=== PATIENT | female | born 1950 | race Caucasian/White ===

== ENCOUNTER 2020-09-23 13:22 | Outpatient (REF) | payer MEDICARE, SELFPAY ==
[2020-09-23 14:26] LABS: Alanine Aminotransferase 20 U/L (0-31); Albumin Level 4.5 g/dL (3.5-5.0); Alkaline Phosphatase 80 U/L (39-117); Anion Gap 11 (12-20); Aspartate Amino Transferase 22 U/L (5-31); Bilirubin Total 0.5 mg/dL (0.0-1.0); Blood Urea Nitrogen 14 mg/dL (9-16); Carbon Dioxide 28 mmol/L (22-29); Chloride 104 mmol/L (96-108); Cholesterol 249 mg/dL; Estimated Glomerular Filt Rate 43; Glucose Random 99 mg/dL (60-115); HDL Cholesterol 59 mg/dL; LDL Cholesterol Calculated 171 mg/dl; Potassium 3.7 mmol/l (3.3-5.1); Sodium 139 mmol/L (135-145); Total Protein 6.8 g/dL (6.5-8.0); Triglycerides 98 mg/dL
[2020-09-23 14:36] LABS: Valproate 34.8 mcg/mL (50.0-100.0)
[2020-09-23 14:50] LABS: TSH reflex Free T4 2.53 mIU/mL (0.32-4.0)
== END 2020-09-23 13:23 | disposition home or self-care (01) ==
LOC: HO.LAB 13:22
PROVIDERS: Visit Provider Family Medicine
DX: F31.9 Bipolar disorder, unspecified (principal)
CPT/HCPCS: 36415; 80053; 80061; 80164; 84443

== ENCOUNTER 2021-03-23 14:50 | Outpatient (REF) | payer MEDICARE, SELFPAY ==
--- NOTE | ~2021-03-23 | XR_ITS ---
EXAMINATION: XR RIBS, RIGHT CLINICAL INFORMATION: Fall COMPARISON: Chest x-ray of January 29, 2020 TECHNIQUE: 3 views of the right ribs were obtained. FINDINGS: Visualized Lungs are clear. No consolidation, pneumothorax, or pleural effusion. The cardiomediastinal silhouette and pulmonary vasculature are normal. Multilevel degenerative disc disease is seen with spurring. There is scoliosis at the thoracolumbar junction convex left. Ribs are intact. No fractures are identified. XR/XR ribs RT 2V IMPRESSION: No acute displaced right rib fracture identified. No destructive bony lesion appreciated.
== END 2021-03-23 14:51 | disposition home or self-care (01) ==
LOC: HO.XRAY 14:50
PROVIDERS: PCP Family Medicine; Visit Provider Family Medicine
DX: Z91.81 History of falling (principal)
CPT/HCPCS: 71100

== ENCOUNTER 2021-05-30 18:15 | Outpatient (REF) | payer MEDICARE, SELFPAY ==
--- NOTE | ~2021-05-30 | MR_ITS ---
MRI OF THE BRAIN WITHOUT IV CONTRAST INDICATION: Vertigo/ataxia. COMPARISON: Brain MRI 05/11/2015. TECHNIQUE: Multiplanar multisequence MR imaging of the brain was obtained without IV contrast. FINDINGS: There is no hydrocephalus, extra-axial surface collection, or herniation. Mild chronic microangiopathy. The major flow voids at the skull base are preserved. There is no acute infarct on diffusion-weighted imaging. There is no intracranial hemorrhage on the gradient recalled echo acquisition. The midline structures are normal. 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 The cerebellum and brainstem are normal. The craniocervical junction is normal. Osseous marrow signal intensity is homogenous. A large well-circumscribed T2 signal hyperintense subcutaneous lesion partially imaged within the dorsal upper neck is again noted, possibly a large sebaceous cyst but nonspecific and that should be clinically correlated. 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 - There is mild chronic microangiopathy. - A large well-circumscribed T2 signal hyperintense subcutaneous lesion partially imaged within the dorsal upper neck is again noted, possibly a large sebaceous cyst but nonspecific and that should be clinically correlated. This measures at least 5 cm in CC dimension.
== END 2021-05-30 18:16 | disposition home or self-care (01) ==
LOC: HO.MRI 18:15
PROVIDERS: PCP Family Medicine; Visit Provider Psychiatry & Neurology Neurology
DX: R27.0 Ataxia, unspecified (principal); R90.82 White matter disease, unspecified
CPT/HCPCS: 70551

== ENCOUNTER 2021-11-18 18:54 | Emergency (ER) | payer MEDICARE, SELFPAY ==
--- NOTE | ~2021-11-18 | CT_ITS ---
EXAMINATION: CT CERVICAL SPINE WITHOUT CONTRAST; UNENHANCED CT OF THE HEAD. CLINICAL INFORMATION: Fall, head and neck pain. COMPARISON: None TECHNIQUE: Routine unenhanced CT of the head with multiple coronal and sagittal reformatted images; routine unenhanced CT of the cervical spine with multiple coronal and sagittal reformatted images. This CT examination was performed using dose optimization techniques as appropriate, variously including the following: *Automated exposure control *Adjustment of mA and/or kV according to patient size (this includes techniques or standardized protocols for targeted exams where dose is matched to indication/reason for exam; i.e. extremities or head) *Use of iterative reconstruction technique DLP: 1032 mGy-cm FINDINGS: Mild diffuse commensurate prominence of the ventricles and sulci is noted. No intrarenal hemorrhage, tumors or acute infarcts are visualized. No focal parenchymal lesions the brain noted. No abnormal extra-axial fluid collections. The orbits and globes are normal in appearance. Multifocal dental amalgam is present and gives rise to scattering artifact partially obscuring visualization of adjacent transaxial structures. Mild left parieto-occipital extra cranial soft tissue inflammatory changes are visualized. No mastoid or middle ear cavity effusions identified. CT cervical spine: No fractures or acute appearing subluxations are noted. Moderate multilevel intervertebral disc space narrowing and posterior endplate osteophytosis is present with findings most pronounced at C5-C6 and C6-C7. No vertebral body compression deformities. No prevertebral fluid or soft tissue inflammatory changes identified. Mild left carotid bulb calcific atherosclerosis. CT/CT cervical spine wo con IMPRESSION: CT head: *No acute intracranial abnormalities. *Mild left parieto-occipital extra cranial soft tissue inflammatory changes. CT cervical spine: *No acute abnormalities. *Moderate multilevel chronic spondylosis.
--- NOTE | ~2021-11-18 | CT_ITS ---
EXAMINATION: CT CHEST, ABDOMEN AND PELVIS WITHOUT CONTRAST CLINICAL INFORMATION: Fall with chest wall pain and abdominal pain COMPARISON: CT abdomen pelvis 07/19/2014 TECHNIQUE: Multidetector volumetric imaging was performed from the thoracic inlet through the pubic symphysis without IV contrast. Sagittal and coronal reformatted images were obtained on the technologist's workstation. This CT examination was performed using dose optimization techniques as appropriate, variously including the following: *Automated exposure control *Adjustment of mA and/or kV according to patient size (this includes techniques or standardized protocols for targeted exams where dose is matched to indication/reason for exam; i.e. extremities or head) *Use of iterative reconstruction technique DLP: 289 mGy-cm (chest) 999 mGy-cm (abdomen and pelvis) FINDINGS: CHEST: Lung: The lungs are clear without focal opacity or worrisome nodule. Left basilar atelectasis is seen. There is a tiny 2 mm nodule in the superior segment of the left lower lobe (7:220). Mediastinum: Heart size is normal. Coronary calcifications are present. The central vascular structures are otherwise unremarkable. No hilar or mediastinal lymphadenopathy. Pericardium/Pleura: No significant effusion. No pleural mass or thickening. Chest Wall/Axilla: Degenerative changes noted throughout the spine. No rib fractures are seen. ABDOMEN/PELVIS: Peritoneal Space: No significant free air or free fluid identified. Liver, Gallbladder, Biliary Tree: The liver is normal in size, shape, and attenuation. No focal hepatic lesion or biliary ductal dilatation is present. The gallbladder is unremarkable with no evidence of radiopaque gallstones, gallbladder wall thickening, or obvious pericholecystic inflammatory changes. Pancreas: Unremarkable Spleen: Unremarkable Adrenal Glands: Unremarkable Kidneys and Ureters: The kidneys are normal in size, shape, and attenuation. Benign bilateral water density Bosniak class I parapelvic and cortical cysts are present. These need no further imaging or follow-up. No solid renal masses. No hydronephrosis, hydroureter, or calculi seen. No perinephric stranding. Bladder: Unremarkable Gastrointestinal Tract: The small and large bowel are unremarkable. The appendix is none seen with certainty but there is no evidence of appendicitis. Abdominal Wall: No significant hernia is appreciated. Lymph Nodes: No lymphadenopathy. Vascular: The aorta and iliac vessels demonstrate calcific plaque without aneurysm.. The IVC appears unremarkable. PELVIC VISCERA: Unremarkable OSSEUS STRUCTURES: Mild degenerative changes are noted in the spine. Generalized osteopenia is present. No bony destructive lesions are seen. Lytic area in right hemisacrum probably secondary to osteoporosis and transitional L5 vertebral body, unchanged from 07/19/2014. CT/CT abdomen pelvis wo con IMPRESSION: No evidence of an acute traumatic injury in the chest abdomen or pelvis after the patient's fall. Incidental findings as described above. Fleischner guidelines were followed.
[2021-11-18 19:13] VITALS: BP 121/45; PULSE 58; RESP 16; TEMP 36.8; O2SAT 97; BMI 23.6
--- NOTE | 2021-11-18 19:21 | ECG_ITS ---
Test Reason : fall Blood Pressure : / mmHG Vent. Rate : 056 BPM Atrial Rate : 056 BPM P-R Int : 162 ms QRS Dur : 132 ms QT Int : 448 ms P-R-T Axes : 047 013 033 degrees QTc Int : 432 ms Sinus bradycardia Right bundle branch block Abnormal ECG When compared with ECG of 19-MAR-2019 01:06, No significant change was found Referred By: Generic ED Physician Electronically Signed By:Kaiden Valderrama
[2021-11-18 19:35] LABS: MANUAL DIFF FLAG NO
[2021-11-18 19:36] LABS: Basophils Percent Auto 0.7 % (0-2); Eosinophils Percent Auto 5.4 % (0-4); Imm Gran Pct Auto 1.3 % (0.0-0.4); Lymphocytes Percent Auto 18.5 % (20-40); Mean Corpuscular HGB Conc 30.6 g/dl (31.0-35.0); Mean Corpuscular Hemoglobin 29.3 pg (27.0-33.0); Mean Corpuscular Volume 95.7 fL (80.0-98.0); Mean Platelet Volume 8.6 fL (9.4-12.3); Monocytes Percent Auto 9.4 % (2-11); Neutrophils Absolute Auto 4.4 x10*3/uL (2.0-8.3); Neutrophils Percent Auto 64.7 % (45-73); Platelet Count 157 X10*3/uL (160-400); Red Blood Count 3.76 X10*6/uL (4.20-5.50); White Blood Count 6.8 X10*3/uL (4.8-10.8)
--- NOTE | 2021-11-18 19:50 | ED_ITS ---
HPI - Fall General Chief Complaint: Fall Stated Complaint: fall head injury Time Seen by Provider: 11/18/21 19:36 Source: patient and family Mode of arrival: ambulatory Limitations: no limitations History of Present Illness HPI Narrative: This is a 70-year-old female past medical history significant for vertigo, and bipolar disorder presenting to the emergency department status post fall just prior to her arrival. Patient tells me she was in her kitchen, she slipped, fell backwards, hit her head on the cabinet. She tells me she did not lose consciousness however she did see stars. She tells me she was able to get off the ground by herself. She tells me that she is high off marijuana which could be contributing to this. Son who is at the bedside reports that she has had multiple falls within the past week. Hitting her head multiple times. Patient is on baby aspirin daily. She denies headache, vision changes, dizziness, chest pain, shortness of breath, nausea vomiting. She does report left-sided rib pain, and right-sided lower back pain. She denies any changes in bowel habits, paresthesias, numbness, weakness. MD complaint: fall Onset (ago): hour(s) (3) Fall from: standing Fall witnessed: no Place fall occurred: home Loss of consciousness: none Length of LOC: second(s) Prolonged down time: no Symptoms prior to fall: none Context: tripped/slipped Location of injury: head, neck, chest and back Related Data Allergies Allergy/AdvReac Type Severity Reaction Status Date / Time Antibiotic Allergy Unknown Unverified 04/26/20 00:00 ciprofloxacin [From Cipro] Allergy Unknown UNKNOWN Unverified 06/02/20 16:21 codeine [Codeine] Allergy Unknown UNKNOWN Unverified 06/02/20 16:21 cortisone [Cortisone] Allergy Unknown UNKNOWN Unverified 06/02/20 16:21 fexofenadine [Abimbola] Allergy Unknown Verified 04/26/20 00:00 Iodine and Iodide Containing Allergy Unknown UNKNOWN Unverified 06/02/20 16:21 Produc [IODINE AND IODIDE CONTAINING PRODUC] loratadine [Claritin] Allergy Unknown Verified 04/26/20 00:00 morphine Allergy Unknown Unverified 04/26/20 00:00 prednisone Allergy Unknown confusion Unverified 04/26/20 00:00 shellfish derived Allergy Unknown UNKNOWN Unverified 06/02/20 16:21 [SHELLFISH DERIVED] Sulfa (Sulfonamide Allergy Unknown UNKNOWN Unverified 06/02/20 16:21 Antibiotics) ALL ANTIBIOTICS EXCEPT Allergy Unknown UNKNOWN Uncoded 06/02/20 16:21 TETRACYCLINE Codeine Sulfate Allergy Unknown Uncoded 04/26/20 00:00 DIURETICS Allergy Unknown UNKNOWN Uncoded 06/02/20 16:21 From Cipro Allergy Unknown UNKNOWN Uncoded 06/02/20 16:21 From Keflex Allergy Unknown UNKNOWN Uncoded 06/02/20 16:21 [facility] Social History Social History Advance Directives: No Physical Exam Vital Signs: Vital Signs: Last Vital Signs Temp 97.5 F 11/18/21 20:39 Pulse 58 11/18/21 21:06 Resp 18 11/18/21 20:39 BP 154/78 H 11/18/21 21:06 Pulse Ox 98 11/18/21 20:39 BMI result Body Mass Index 23.6 Course Reevaluation(s) Reevaluation #1: CBC within normal limits. Patient is noted to have a baseline normocytic anemia. No acute electrolyte abnormalities. CT of the head no acute intracranial abnormalities. There is soft tissue swelling in the parietal 0 orbital area. No acute abnormalities in the cervical spine. CT of the chest with no evidence of an acute traumatic injury in the chest abdomen or pelvis. There are degenerative changes noted in the spine. Time: 22:11 Reevaluation #2: Patient is ambulating with a steady gait. MDM - Fall Lab Data Result diagrams: 11/18/21 19:31 11/18/21 19:31 Labs: Lab Results 11/18/21 11/18/21 Range/Units 19:31 19:31 WBC 6.8 (4.8-10.8) X10*3/uL RBC 3.76 L (4.20-5.50) X10*6/uL Hgb 11.0 L (12.0-16.0) g/dl Hct 36.0 L (37.0-47.0) % MCV 95.7 (80.0-98.0) fL MCH 29.3 (27.0-33.0) pg MCHC 30.6 L (31.0-35.0) g/dl RDW 14.0 (11.0-16.0) % Plt Count 157 L (160-400) X10*3/uL MPV 8.6 L (9.4-12.3) fL Immature Gran % (Auto) 1.3 H (0.0-0.4) % Neut % (Auto) 64.7 (45-73) % Lymph % (Auto) 18.5 L (20-40) % [place] % (Auto) 9.4 (2-11) % Eos % (Auto) 5.4 H (0-4) % Baso % (Auto) 0.7 (0-2) % Lymph # (Auto) 1.3 (1.2-4.9) X10*3/uL [place] # (Auto) 0.6 (0.1-1.2) X10*3/uL Eos # (Auto) 0.4 (0.0-0.4) X10*3/uL Baso # (Auto) 0.1 (0.0-0.2) X10*3/uL Abs Immat Gran (auto) 0.09 H (0.00-0.03) X10*3/uL Absolute Neuts (auto) 4.4 (2.0-8.3) x10*3/uL Absolute Nucleated RBC 0.000 (0.0-0.012) X10*3/uL Nucleated RBC % (auto) 0.0 (0.0-0.2) /100WBC Sodium 146 H (135-145) mmol/L Potassium 4.8 (3.3-5.1) mmol/L Chloride 114 H (96-108) mmol/L Carbon Dioxide 27 (22-29) mmol/L Anion Gap 10 L (12-20) BUN 20 H (9-16) mg/dL Creatinine 0.97 (0.5-1.4) mg/dL Estim Creat Clear Calc 55.2 Estimated GFR 57 Random Glucose 120 H (60-115) mg/dL Calcium 8.9 (8.4-10.2) mg/dL Critical Care Time Critical Care Time Critical Care Time: No Discharge Plan Discharge Clinical Impression: Fall, Headache, Pain in rib, Lumbar back pain Patient Disposition: Home, Self-Care Instructions: Fall Prevention (ED), Fall Prevention for Older Adults (ED), Acute Headache (DC), Acute Low Back Pain (ED) Additional Instructions: Take your medications as prescribed. If you were prescribed antibiotics today, it is important that you take your medication to their entirety, do not skip any doses, do not finish them early. Follow-up with your primary care provider this week. Return to the emergency department with new or worsening symptoms. Such as headache, nausea, vomiting, chest pain, shortness of breath, lethargy, vision changes, dizziness, worsening symptoms, confusion In case of emergency call 911 Referrals: Thais Mcdaniel MD [Primary Care Provider] - 2 days Stand Alone Forms: Work/School Release
[2021-11-18 20:18] LABS: Anion Gap 10 (12-20); Blood Urea Nitrogen 20 mg/dL (9-16); Calcium 8.9 mg/dL (8.4-10.2); Carbon Dioxide 27 mmol/L (22-29); Chloride 114 mmol/L (96-108); Creatinine Clr Calc Pharmacy 55.2; Estimated Glomerular Filt Rate 57; Glucose Random 120 mg/dL (60-115); Potassium 4.8 mmol/L (3.3-5.1); Sodium 146 mmol/L (135-145)
[2021-11-18 20:39] VITALS: BP 145/75; PULSE 53; RESP 18; TEMP 36.4; O2SAT 98
[2021-11-18 21:02] VITALS: BP 137/68; PULSE 53
[2021-11-18 21:04] VITALS: BP 145/70; PULSE 59
[2021-11-18 21:06] VITALS: BP 154/78; PULSE 58
[2021-11-18 21:15] LABS: Basophils Absolute Auto 0.1 X10*3/uL (0.0-0.2); Eosinophils Absolute Auto 0.4 X10*3/uL (0.0-0.4); Imm Gran Abs Auto 0.09 X10*3/uL (0.00-0.03); Lymphocytes Absolute Auto 1.3 X10*3/uL (1.2-4.9); Monocytes Absolute Auto 0.6 X10*3/uL (0.1-1.2)
== END 2021-11-18 22:25 | disposition home or self-care (01) ==
PROVIDERS: Emergency Provider Emergency Medicine Emergency Medical Services; PCP Family Medicine
DX: R51.9 Headache, unspecified (principal); R07.81 Pleurodynia; M54.50 Low back pain, unspecified; F12.90 Cannabis use, unspecified, uncomplicated; Z91.81 History of falling
CPT/HCPCS: 36415; 70450; 71250; 72125; 74176; 80048; 85025; 93005; 99284

== ENCOUNTER 2022-09-05 15:04 | Outpatient (REF) | payer MEDICARE, SELFPAY | END 2022-09-05 15:05 | disposition home or self-care (01) | LOC: HO.US 15:04 | PROVIDERS: Visit Provider Family Medicine | DX: N28.1 Cyst of kidney, acquired (principal) | CPT/HCPCS: 76775 ==

== ENCOUNTER 2022-10-06 20:41 | Emergency (ER) | payer MEDICARE, SELFPAY ==
--- NOTE | ~2022-10-06 | XR_ITS ---
EXAMINATION: XR CHEST CLINICAL INFORMATION: Chest trauma. COMPARISON: Chest x-ray 01/29/2020 TECHNIQUE: Frontal portable view of the chest was obtained. 11:56 PM FINDINGS: Lungs are clear. No pulmonary vascular congestion. There is no pleural effusion. The heart size is normal. The cardiac and mediastinal contours are normal. There are calcifications of the thoracic aorta. There are multilevel degenerative changes of dorsal spine. No acute osseous abnormality. XR/XR chest 1V IMPRESSION: Unremarkable examination.
--- NOTE | ~2022-10-06 | CT_ITS ---
EXAMINATION: CT HEAD WITHOUT CONTRAST CLINICAL INFORMATION: Fall. Head strike. COMPARISON: CT head 11/18/2021 TECHNIQUE: Contiguous axial imaging was performed from the skull base to vertex without intravenous administration of contrast. Coronal and sagittal reformatted images are performed at the CT scanner. [This CT examination was performed using dose optimization techniques as appropriate, variously including the following: *Automated exposure control *Adjustment of mA and/or kV according to patient size (this includes techniques or standardized protocols for targeted exams where dose is matched to indication/reason for exam; i.e. extremities or head) *Use of iterative reconstruction technique] DLP: 572 mGy-cm. FINDINGS: There is no evidence of acute intracranial hemorrhage or territorial infarction. No abnormal mass-effect or midline shift is seen. Carranza to white matter differentiation is well preserved. No extra-axial fluid collections are identified. The ventricles are normal in size. There is no abnormal attenuation within the brain parenchyma. There is no osseous abnormality. The mastoid air cells and visualized portions of the paranasal sinuses are well-aerated. CT/CT head/brain wo IV con IMPRESSION: No acute intracranial pathology.
[2022-10-06 20:51] VITALS: BP 151/69; BP 170/100; PULSE 52; PULSE 56; RESP 14; TEMP 36.3; O2SAT 97; O2SAT 99; BMI 25.8
--- NOTE | 2022-10-06 21:00 | MHC.EDTECH ---
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
--- NOTE | 2022-10-06 21:30 | PC.NURSE ---
PT A&Ox4, reports taking 20 topiramate (100 mg) pills around 6pm this evening. Reports drinking half a bottle of champagne. Also reports falling from toilet seat. Patient questioning why she has to get undressed and why do we have to take her phone. Provider at bedside. Security at bedside. PT changed over, calm and cooperative after explanations of policies and procedures. Denies SI/HI. States It's been a hard day, my of 40 years asked me for a divorce and told me he didn't want me anymore .
[2022-10-06 21:40] LABS: MANUAL DIFF FLAG NO
[2022-10-06 21:41] LABS: Basophils Percent Auto 0.5 % (0-2); Eosinophils Absolute Auto 0.3 X10*3/uL (0.0-0.4); Eosinophils Percent Auto 4.8 % (0-4); Hematocrit 36.6 % (37.0-47.0); Hemoglobin 11.7 g/dl (12.0-16.0); Imm Gran Abs Auto 0.04 X10*3/uL (0.00-0.03); Imm Gran Pct Auto 0.7 % (0.0-0.4); Lymphocytes Absolute Auto 1.4 X10*3/uL (1.2-4.9); Lymphocytes Percent Auto 25.3 % (20-40); Mean Corpuscular Hemoglobin 28.7 pg (27.0-33.0); Mean Corpuscular Volume 89.7 fL (80.0-98.0); Mean Platelet Volume 9.2 fL (9.4-12.3); Monocytes Absolute Auto 0.5 X10*3/uL (0.1-1.2); Monocytes Percent Auto 9.4 % (2-11); Neutrophils Absolute Auto 3.3 x10*3/uL (2.0-8.3); Neutrophils Percent Auto 59.3 % (45-73); Platelet Count 139 X10*3/uL (160-400); Red Blood Count 4.08 X10*6/uL (4.20-5.50); Red Cell Distribution Width 13.6 % (11.0-16.0); White Blood Count 5.6 X10*3/uL (4.8-10.8)
--- NOTE | 2022-10-06 21:50 | PC.NURSE ---
Poison controlled called, recommendations of repeat electrolytes Q4H. Provider notified.
[2022-10-06 21:52] LABS: Ethanol 46 mg/dL
[2022-10-06 22:00] VITALS: BP 143/68; PULSE 54; RESP 16; TEMP 36.9; O2SAT 98
--- NOTE | 2022-10-06 22:05 | MHC.EDTECH ---
patient back from cat scan ,vitals sign taken ,patient in good sprits ,laughing ,thanking me for everything .
[2022-10-06 22:11] LABS: Alanine Aminotransferase 29 U/L (0-31); Albumin Level 3.6 g/dL (3.5-5.0); Alkaline Phosphatase 89 U/L (39-117); Anion Gap 11 (12-20); Aspartate Amino Transferase 24 U/L (5-31); Bilirubin Total 0.7 mg/dL (0.0-1.0); Blood Urea Nitrogen 23 mg/dL (9-16); Calcium 8.6 mg/dL (8.4-10.2); Carbon Dioxide 19 mmol/L (22-29); Chloride 120 mmol/L (96-108); Creatinine Clr Calc Pharmacy 68.9; Estimated Glomerular Filt Rate > 60; Glucose Random 85 mg/dL (60-115); Magnesium 1.8 mg/dL (1.6-2.6); Potassium 4.4 mmol/L (3.3-5.1); Salicylate < 5.0 mg/dL (15-30); Sodium 146 mmol/L (135-145); Total Protein 5.7 g/dL (6.5-8.0)
--- NOTE | 2022-10-06 22:18 | MHC.EDTECH ---
urine ,sample send to lab .
[2022-10-06 22:25] LABS: Appearance Urine Clear; Color Urine Yellow; Glucose Urine UA Negative (Negative); Leukocyte Esterase Urine Negative (Negative); Nitrite Urine Negative (Negative); PH 8.5 (5.0-9.0); Specific Gravity - Urine <= 1.005 (1.005-1.025); Urine Blood Negative (Negative); Urine Ketones Negative (Negative); Urine Protein Negative (Neg-Trace)
[2022-10-06 22:28] LABS: Acetaminophen LAB < 17 mcg/mL (<30)
--- NOTE | 2022-10-06 22:33 | PC.NURSE ---
PT sitting on bedside commode,reports unable to void, feeling pressure, states I have a shy bladder . Bladder scan results 798. Provider notified. Straight cath 850cc.
[2022-10-06 22:34] LABS: Amphetamine Screen Urine Not Detected (Not Detect); Barbiturates, Urine Not Detected (Not Detect); Benzodiazepines Screen Urine POSITIVE (Not Detect); Cannabinoid Screen Urine Not Detected (Not Detect); Cocaine Screen Urine Not Detected (Not Detect); Fentanyl, urine Not Detected (Not Detect); Opiate Screen Urine Not Detected (Not Detect); Phencyclidine Screen Urine Not Detected (Not Detect)
[2022-10-06 22:37] LABS: COVID-19 Test Negative (Negative); IDNOW Serial# 6674DD1D
--- NOTE | 2022-10-06 23:10 | MHC.EDTECH ---
report given to brandyn Olmedo ,patient just came in .
[2022-10-06 23:11] VITALS: BP 130/66; PULSE 53; RESP 16; TEMP 36.6; O2SAT 99
--- NOTE | 2022-10-06 23:15 | ED.OVERDOSE ---
HPI - Overdose General Chief Complaint: Overdose <JONATHON Ca - Last Filed: 10/07/22 01:25> Stated Complaint: OD/Crisis <JONATHON Ca - Last Filed: 10/07/22 01:25> Time Seen by Provider: 10/06/22 20:44 <JONATHON Ca - Last Filed: 10/07/22 01:25> Source: patient, EMS and police <JONATHON Ca - Last Filed: 10/07/22 01:25> Mode of arrival: EMS <JONATHON Ca - Last Filed: 10/07/22 01:25> Limitations: no limitations <JONATHON Ca - Last Filed: 10/07/22 01:25> History of Present Illness HPI Narrative: This is a 71-year-old female presenting to the emergency department status post intentional overdose just prior to arrival. Patient arrives with EMS and [place] police. According to police patient had 20-25 pills Topamax 100 mg an hour and half prior to patient's arrival. Patient was also found with an empty bottle of trazodone next to her, this bottle of trazodone was filled on 09/11/2022 with a quantity of 90 pills, patient was found with this empty bottle patient unwilling to answer if she took it or not. Patient also reports drinking today her story has changed she told police she drinks chardonay and she told nursing staff here she had a bottle of champagne. According to EMS and police patient was very unsteady on her feet, after consuming these medications she fell off the toilet and hit her head without loss of consciousness, patient not on blood thinners. Did not sustain any other injuries. When asked if she is suicidal she does not answer my question. Denies homicidal ideation. Denies visual, auditory and tactile hallucinations. Has a significant mental health history. Denies chest pain, shortness of breath, headache, vision changes, dizziness, weakness, nausea, vomiting, abdominal pain.. <JONATHON Ca - Last Filed: 10/07/22 01:25> Related Data Home Medications: Home Medications Medication Instructions Recorded Confirmed Trileptal 10/07/22 Vitamin C 10/07/22 atenolol 50 mg tablet 2 tab PO DAILY 10/07/22 10/07/22 diazepam 10 mg tablet mg PO 10/07/22 divalproex 125 mg tablet,delayed 2 tab PO DAILY 10/07/22 10/07/22 release multivitamin 10/07/22 omeprazole 10/07/22 topiramate 100 mg tablet 4 tab PO BEDTIME 10/07/22 10/07/22 <JONATHON Ca - Last Filed: 10/07/22 01:25> Allergies/Adverse Reactions: Allergies Allergy/AdvReac Type Severity Reaction Status Date / Time Antibiotic Allergy Unknown Anaphylaxis Verified 10/07/22 04:46 ciprofloxacin [From Cipro] Allergy Unknown UNKNOWN Unverified 06/02/20 16:21 codeine [Codeine] Allergy Unknown UNKNOWN Unverified 06/02/20 16:21 cortisone [Cortisone] Allergy Unknown UNKNOWN Unverified 06/02/20 16:21 fexofenadine [Abimbola] Allergy Unknown Unknown Verified 10/07/22 04:46 Iodine and Iodide Containing Allergy Unknown Anaphylaxis Verified 10/07/22 04:46 Produc [IODINE AND IODIDE CONTAINING PRODUC] loratadine [Claritin] Allergy Unknown Unknown Verified 10/07/22 04:46 morphine Allergy Unknown Anaphylaxis Verified 10/07/22 04:46 prednisone Allergy Unknown confusion Verified 10/07/22 04:46 shellfish derived Allergy Unknown UNKNOWN Verified 10/07/22 04:46 [SHELLFISH DERIVED] Sulfa (Sulfonamide Allergy Unknown UNKNOWN Verified 10/07/22 04:46 Antibiotics) ALL ANTIBIOTICS EXCEPT Allergy Unknown UNKNOWN Uncoded 06/02/20 16:21 TETRACYCLINE Codeine Sulfate Allergy Unknown Anaphylaxis Uncoded 10/07/22 04:46 DIURETICS Allergy Unknown UNKNOWN Uncoded 10/07/22 04:46 From Cipro Allergy Unknown UNKNOWN Uncoded 10/07/22 04:46 From Keflex Allergy Unknown UNKNOWN Uncoded 10/07/22 04:46 <JONATHON Ca Last Filed: 10/07/22 01:25> Review of Systems Review of Systems: Constitutional : No Weight loss, No Fever, No Chills, No Fatigue, No Malaise ENT/Mouth : No sore throat, No Rhinorrhea Eyes: No Eye Pain, No Swelling, No Redness Cardiovascular : No Chest Pain, No SOB, No Dyspnea on Exertion, No Orthopnea, No Edema, No Palpitations Respiratory : No Cough, No Sputum, No Wheezing Gastrointestinal : No Nausea, No Vomiting, No Diarrhea, No Constipation, No abdominal Pain, No Hematochezia, No Melena Genitourinary : No Dysuria, No Urinary Frequency, No Hematuria, Musculoskeletal : No joint pain, No Myalgias, No Joint Swelling Skin : No Skin Lesions, No rash Neuro : No Weakness, No Numbness, No Dizziness, No Headache Psych : No Anxiety/Panic, No Depression, No SI or HI All other systems reviewed and are negative <JONATHON Ca - Last Filed: 10/07/22 01:25> Yes all other systems are reviewed and are negative <JONATHON Ca - Last Filed: 10/07/22 01:25> [facility] Past Medical History Attestation statement: The following information was validated with the patient. <JONATHON Ca - Last Filed: 10/07/22 01:25> Source: old records reviewed and nursing notes reviewed <JONATHON Ca - Last Filed: 10/07/22 01:25> Social History Social History: Social History Alcohol intake: current Alcohol type: other Smoked in Last 30 Days: No Use of substances other than those prescribed or required for medical reasons: No Advance Directives: No Advance Directives Information Provided: No <JONATHON Ca - Last Filed: 10/07/22 01:25> Physical Exam Vital Signs: Vital Signs: Last Vital Signs Temp 97.6 F 10/07/22 02:00 Pulse 59 10/07/22 04:06 Resp 16 10/07/22 04:06 BP 133/76 10/07/22 04:06 Pulse Ox 98 10/07/22 04:06 O2 Del Method 10/07/22 04:06 BMI result Body Mass Index 25.8 vss <JONATHON Ca - Last Filed: 10/07/22 01:25> Vital Signs: Last Vital Signs Temp 97.6 F 10/07/22 02:00 Pulse 59 10/07/22 04:06 Resp 16 10/07/22 04:06 BP 133/76 10/07/22 04:06 Pulse Ox 98 10/07/22 04:06 O2 Del Method 10/07/22 04:06 BMI result Body Mass Index 25.8 <Basim Ramos MD - Last Filed: 10/07/22 06:22> Appearance: Alert.? Oriented X3.? No acute distress.? Head: Normocephalic, atraumatic, no step-offs or deformities Eyes: Pupils equal, round and reactive to light.? Neck: Normal inspection.? Neck supple.? CVS: Normal heart rate and rhythm.? Pulses normal.? Respiratory: No respiratory distress.? Breath sounds normal.? Abdomen: Soft and nontender.? Skin: Skin warm and dry.? Normal skin color.? Normal skin turgor.? Extremities: No lower extremity edema.? No calf ttp. 5/5 strength to bilateral upper and lower extremities Neuro: Oriented X 3.? No motor deficit.? No sensory deficit. CN 2-12 intact <JONATHON Ca - Last Filed: 10/07/22 01:25> Course Reevaluation(s) Reevaluation #1: CBC appears to be within normal limits. A normocytic anemia is noted which is around patient's baseline. Initial chemistry with a sodium of 146, chloride of 120, slightly elevated BUN likely secondary to dehydration. UA clean without infection. Salicylates, acetaminophen negative. Ethanol level 46. Patient positive for benzodiazepines on drug screen. COVID negative. Chest x-ray unremarkable. CT of the head and brain unremarkable. EKG with sinus bradycardia and right bundle branch block which is normal for patient. QRS is slightly prolonged. Second EKG also pending. Repeat chemistry pending per request of poison Control is at the bedside tells me she is followed by psychiatrist regularly and has good support at home. Patient is on a Section 12 due to intentional overdose, and irrational thoughts. Patient should be cleared by the care team. Vital signs are stable she is noted to be bradycardic with a heart rate of 54-60, however this is patient's baseline. Denies chest pain, shortness of breath, dizziness, weakness. <JONATHON Ca - Last Filed: 10/07/22 01:25> Time: 00:58 <JONATHON Ca - Last Filed: 10/07/22 01:25> Reevaluation #2: Chemistry with elevated sodium 149, likely secondary to dehydration. Will give 0.45% sodium chloride for dehydration. At this time patient will be placed into physician observation to allow more time to be evaluated by the behavioral health team. Case was discussed with my attending Dr. Ramos who will follow repeat BNP. At time observation was started patient formerly [facility] no acute distress, hemodynamically stable, with a sitter at the bedside. <JONATHON Ca - Last Filed: 10/07/22 01:25> Chemistry with elevated sodium 149, likely secondary to dehydration. Will give 0.45% sodium chloride for dehydration. At this time patient will be placed into physician observation to allow more time to be evaluated by the behavioral health team. Case was discussed with my attending Dr. Ramos who will follow repeat BNP. At time observation was started patient formerly [facility] no acute distress, hemodynamically stable, with a sitter at the bedside. 0201: Physician observation continued: I assumed care of this patient from my colleague, physician executive assistant to general counsel Kurtis Thorpe. I did review the patient's presentation, patient admits to take an overdose of Topamax 100 mg pills times 20 pills. There was an empty bottle of trazodone found at her bedside but the patient denies taking these medications she states that she threw them away. I did discuss this with poison Control and their concern was that an overdose of trazodone could lead to QTC prolongation and QTC prolongation and they recommend observing for 8-12 hours on a monitor car operator its. Unclear when the patient took the overdose therefore she will be monitored till 08:00 hours. Topamax can cause hyponatremia and metabolic acidosis. My plan is to check the patient's EKG q.4 hours and 2 check the patient's BMP q.4 hours. I did order a medical reconciliation at this time the patient will not receive any her medications until we can medically clear her to avoid any interactions with her outpatient medications. I did tell the patient that she is on a Section 12 and cannot we the emergency department until she is evaluated by our care team which will not happen until later today. 0617: Physician observation continued: Patient's repeat BMP at 03:59 hours revealed elevated sodium 147, elevated chloride 118, low bicarb of 20-these values are not significantly changed from previous values, the patient is still getting the 0.45 saline IV. The patient's 12 EKG revealed no significant change in the patient's QTC interval. The patient will need 1 more repeat BMP at 08:00 hours and cardiac monitoring until 08:00 hours, therefore the patient's care, Dr. Molina <Basim Ramos MD - Last Filed: 10/07/22 06:22> Time: 01:10 <JONATHON Ca - Last Filed: 10/07/22 01:25> Medications Administered Generic Name Dose Route Start Last Admin Trade Name Freq PRN Reason Stop Dose Admin Sodium Chloride 1,000 mls @ 125 mls/hr 10/07/22 01:15 10/07/22 02:13 Sodium Chloride 0.45 % IVCONT 125 mls/hr .Q8H ROSA Administration <JONATHON Ca - Last Filed: 10/07/22 01:25> Medications Administered Generic Name Dose Route Start Last Admin Trade Name Freq PRN Reason Stop Dose Admin Sodium Chloride 1,000 mls @ 125 mls/hr 10/07/22 01:15 10/07/22 02:13 Sodium Chloride 0.45 % IVCONT 125 mls/hr .Q8H ROSA Administration <Basim Ramos MD - Last Filed: 10/07/22 06:22> Medical Decision Making Medical Decision Making MDM Narrative: 71-year-old female presents with intentional overdose with multiple prescription medications. Physical examination benign. Patient hemodynamically stable. Poison Control was contacted immediately recommends basic labs, EKG and repeat chemistry every 4 hours. Likely intentional overdose secondary to anxiety or depression. Unlikely metabolic disturbances. Will rule out cardiac dysrhythmia is, EKG changes, electrolyte abnormalities. Neuro exam nonfocal, cerebellar intact, unlikely intracranial hemorrhage, stroke, posterior stroke. However will rule this out based off mechanism of fall Plan at this time labs, imaging, acetaminophen, salicylates, ethanol, NICOLE <JONATHON Ca - Last Filed: 10/07/22 01:25> Differential Diagnosis Differential Diagnoses: The differential diagnosis associated with the presentation includes <JONATHON Ca - Last Filed: 10/07/22 01:25> Likely intentional overdose secondary to anxiety or depression. Unlikely metabolic disturbances. Will rule out cardiac dysrhythmia is, EKG changes, electrolyte abnormalities. Neuro exam nonfocal, cerebellar intact, unlikely intracranial hemorrhage, stroke, posterior stroke. However will rule this out based off mechanism of fall <JONATHON Ca - Last Filed: 10/07/22 01:25> Admission/Observation Consideration of admission/observation: Escalation of care including admission/observation considered <JONATHON Ca - Last Filed: 10/07/22 01:25> Consult Healthcare Provider Management of the patient was discussed with: Front Desk Agent (Poison control) <JONATHON Ca - Last Filed: 10/07/22 01:25> Lab Data MDM Lab Attestation statement: I reviewed the patient's lab results. <JONATHON Ca - Last Filed: 10/07/22 01:25> Result Diagrams: 10/06/22 21:36 10/06/22 21:35 <JONATHON Ca - Last Filed: 10/07/22 01:25> Labs: Lab Results 10/06/22 10/06/22 10/06/22 Range/Units 21:35 21:36 21:36 WBC 5.6 (4.8-10.8) X10*3/uL RBC 4.08 L (4.20-5.50) X10*6/uL Hgb 11.7 L (12.0-16.0) g/dl Hct 36.6 L (37.0-47.0) % MCV 89.7 (80.0-98.0) fL MCH 28.7 (27.0-33.0) pg MCHC 32.0 (31.0-35.0) g/dl RDW 13.6 (11.0-16.0) % Plt Count 139 L (160-400) X10*3/uL MPV 9.2 L (9.4-12.3) fL Immature Gran % (Auto) 0.7 H (0.0-0.4) % Neut % (Auto) 59.3 (45-73) % Lymph % (Auto) 25.3 (20-40) % [place] % (Auto) 9.4 (2-11) % Eos % (Auto) 4.8 H (0-4) % Baso % (Auto) 0.5 (0-2) % Lymph # (Auto) 1.4 (1.2-4.9) X10*3/uL [place] # (Auto) 0.5 (0.1-1.2) X10*3/uL Eos # (Auto) 0.3 (0.0-0.4) X10*3/uL Baso # (Auto) 0.0 (0.0-0.2) X10*3/uL Abs Immat Gran (auto) 0.04 H (0.00-0.03) X10*3/uL Absolute Neuts (auto) 3.3 (2.0-8.3) x10*3/uL Absolute Nucleated RBC 0.000 (0.0-0.012) X10*3/uL Nucleated RBC % (auto) 0.0 (0.0-0.2) /100WBC Sodium 146 H (135-145) mmol/L Potassium 4.4 (3.3-5.1) mmol/L Chloride 120 H (96-108) mmol/L Carbon Dioxide 19 L (22-29) mmol/L Anion Gap 11 L (12-20) BUN 23 H (9-16) mg/dL Creatinine 0.83 (0.5-1.4) mg/dL Estim Creat Clear Calc 68.9 Estimated GFR > 60 Random Glucose 85 (60-115) mg/dL Calcium 8.6 (8.4-10.2) mg/dL Magnesium 1.8 (1.6-2.6) mg/dL Total Bilirubin 0.7 (0.0-1.0) mg/dL AST 24 (5-31) U/L ALT 29 (0-31) U/L Alkaline Phosphatase 89 (39-117) U/L B-Natriuretic Peptide (<100) pg/mL Total Protein 5.7 L (6.5-8.0) g/dL Albumin 3.6 (3.5-5.0) g/dL Urine Color Urine Appearance Urine pH (5.0-9.0) Ur Specific [place] (1.005-1.025) Urine Protein (Neg-Trace) mg/dL Urine Glucose (UA) (Negative) mg/dL Urine Ketones (Negative) mg/dL Urine Blood (Negative) Urine Nitrite (Negative) Ur Leukocyte Esterase (Negative) Salicylates < 5.0 L (15-30) mg/dL Urine Opiates Screen (Not Detect) Urine Fentanyl Screen (Not Detect) Acetaminophen < 17 (<30) mcg/mL Ur Barbiturates Screen (Not Detect) Ur Phencyclidine Scrn (Not Detect) Ur Amphetamines Screen (Not Detect) U Benzodiazepines Scrn (Not Detect) Urine Cocaine Screen (Not Detect) U Marijuana (THC) Screen (Not Detect) Ethyl Alcohol mg/dL COVID-19 (IVIS) Negative (Negative) COVID-19 Clin Com See Note 10/06/22 10/06/22 10/06/22 Range/Units 21:36 21:36 22:16 WBC (4.8-10.8) X10*3/uL RBC (4.20-5.50) X10*6/uL Hgb (12.0-16.0) g/dl Hct (37.0-47.0) % MCV (80.0-98.0) fL MCH (27.0-33.0) pg MCHC (31.0-35.0) g/dl RDW (11.0-16.0) % Plt Count (160-400) X10*3/uL MPV (9.4-12.3) fL Immature Gran % (Auto) (0.0-0.4) % Neut % (Auto) (45-73) % Lymph % (Auto) (20-40) % [place] % (Auto) (2-11) % Eos % (Auto) (0-4) % Baso % (Auto) (0-2) % Lymph # (Auto) (1.2-4.9) X10*3/uL [place] # (Auto) (0.1-1.2) X10*3/uL Eos # (Auto) (0.0-0.4) X10*3/uL Baso # (Auto) (0.0-0.2) X10*3/uL Abs Immat Gran (auto) (0.00-0.03) X10*3/uL Absolute Neuts (auto) (2.0-8.3) x10*3/uL Absolute Nucleated RBC (0.0-0.012) X10*3/uL Nucleated RBC % (auto) (0.0-0.2) /100WBC Sodium (135-145) mmol/L Potassium (3.3-5.1) mmol/L Chloride (96-108) mmol/L Carbon Dioxide (22-29) mmol/L Anion Gap (12-20) BUN (9-16) mg/dL Creatinine (0.5-1.4) mg/dL Estim Creat Clear Calc Estimated GFR Random Glucose (60-115) mg/dL Calcium (8.4-10.2) mg/dL Magnesium (1.6-2.6) mg/dL Total Bilirubin (0.0-1.0) mg/dL AST (5-31) U/L ALT (0-31) U/L Alkaline Phosphatase (39-117) U/L B-Natriuretic Peptide 324 H (<100) pg/mL Total Protein (6.5-8.0) g/dL Albumin (3.5-5.0) g/dL Urine Color Yellow Urine Appearance Clear Urine pH 8.5 (5.0-9.0) Ur Specific [place] <= 1.005 (1.005-1.025) Urine Protein Negative (Neg-Trace) mg/dL Urine Glucose (UA) Negative (Negative) mg/dL Urine Ketones Negative (Negative) mg/dL Urine Blood Negative (Negative) Urine Nitrite Negative (Negative) Ur Leukocyte Esterase Negative (Negative) Salicylates (15-30) mg/dL Urine Opiates Screen (Not Detect) Urine Fentanyl Screen (Not Detect) Acetaminophen (<30) mcg/mL Ur Barbiturates Screen (Not Detect) Ur Phencyclidine Scrn (Not Detect) Ur Amphetamines Screen (Not Detect) U Benzodiazepines Scrn (Not Detect) Urine Cocaine Screen (Not Detect) U Marijuana (THC) Screen (Not Detect) Ethyl Alcohol 46 mg/dL COVID-19 (IVIS) (Negative) COVID-19 Clin Com 10/06/22 10/07/22 10/07/22 Range/Units 22:16 00:33 03:59 WBC (4.8-10.8) X10*3/uL RBC (4.20-5.50) X10*6/uL Hgb (12.0-16.0) g/dl Hct (37.0-47.0) % MCV (80.0-98.0) fL MCH (27.0-33.0) pg MCHC (31.0-35.0) g/dl RDW (11.0-16.0) % Plt Count (160-400) X10*3/uL MPV (9.4-12.3) fL Immature Gran % (Auto) (0.0-0.4) % Neut % (Auto) (45-73) % Lymph % (Auto) (20-40) % [place] % (Auto) (2-11) % Eos % (Auto) (0-4) % Baso % (Auto) (0-2) % Lymph # (Auto) (1.2-4.9) X10*3/uL [place] # (Auto) (0.1-1.2) X10*3/uL Eos # (Auto) (0.0-0.4) X10*3/uL Baso # (Auto) (0.0-0.2) X10*3/uL Abs Immat Gran (auto) (0.00-0.03) X10*3/uL Absolute Neuts (auto) (2.0-8.3) x10*3/uL Absolute Nucleated RBC (0.0-0.012) X10*3/uL Nucleated RBC % (auto) (0.0-0.2) /100WBC Sodium 149 H 147 H (135-145) mmol/L Potassium 4.0 4.4 (3.3-5.1) mmol/L Chloride 121 H 118 H (96-108) mmol/L Carbon Dioxide 19 L 20 L (22-29) mmol/L Anion Gap 13 13 (12-20) BUN 21 H 20 H (9-16) mg/dL Creatinine 0.80 0.82 (0.5-1.4) mg/dL Estim Creat Clear Calc 71.4 69.7 Estimated GFR > 60 > 60 Random Glucose 86 90 (60-115) mg/dL Calcium 8.5 8.5 (8.4-10.2) mg/dL Magnesium (1.6-2.6) mg/dL Total Bilirubin 0.6 (0.0-1.0) mg/dL AST 24 (5-31) U/L ALT 30 (0-31) U/L Alkaline Phosphatase 88 (39-117) U/L B-Natriuretic Peptide (<100) pg/mL Total Protein 5.8 L (6.5-8.0) g/dL Albumin 3.7 (3.5-5.0) g/dL Urine Color Urine Appearance Urine pH (5.0-9.0) Ur Specific [place] (1.005-1.025) Urine Protein (Neg-Trace) mg/dL Urine Glucose (UA) (Negative) mg/dL Urine Ketones (Negative) mg/dL Urine Blood (Negative) Urine Nitrite (Negative) Ur Leukocyte Esterase (Negative) Salicylates (15-30) mg/dL Urine Opiates Screen Not Detected (Not Detect) Urine Fentanyl Screen Not Detected (Not Detect) Acetaminophen (<30) mcg/mL Ur Barbiturates Screen Not Detected (Not Detect) Ur Phencyclidine Scrn Not Detected (Not Detect) Ur Amphetamines Screen Not Detected (Not Detect) U Benzodiazepines Scrn POSITIVE H (Not Detect) Urine Cocaine Screen Not Detected (Not Detect) U Marijuana (THC) Screen Not Detected (Not Detect) Ethyl Alcohol mg/dL COVID-19 (IVIS) (Negative) COVID-19 Clin Com <JONATHON Ca - Last Filed: 10/07/22 01:25> Lab Results 10/06/22 10/06/22 10/06/22 Range/Units 21:35 21:36 21:36 WBC 5.6 (4.8-10.8) X10*3/uL RBC 4.08 L (4.20-5.50) X10*6/uL Hgb 11.7 L (12.0-16.0) g/dl Hct 36.6 L (37.0-47.0) % MCV 89.7 (80.0-98.0) fL MCH 28.7 (27.0-33.0) pg MCHC 32.0 (31.0-35.0) g/dl RDW 13.6 (11.0-16.0) % Plt Count 139 L (160-400) X10*3/uL MPV 9.2 L (9.4-12.3) fL Immature Gran % (Auto) 0.7 H (0.0-0.4) % Neut % (Auto) 59.3 (45-73) % Lymph % (Auto) 25.3 (20-40) % [place] % (Auto) 9.4 (2-11) % Eos % (Auto) 4.8 H (0-4) % Baso % (Auto) 0.5 (0-2) % Lymph # (Auto) 1.4 (1.2-4.9) X10*3/uL [place] # (Auto) 0.5 (0.1-1.2) X10*3/uL Eos # (Auto) 0.3 (0.0-0.4) X10*3/uL Baso # (Auto) 0.0 (0.0-0.2) X10*3/uL Abs Immat Gran (auto) 0.04 H (0.00-0.03) X10*3/uL Absolute Neuts (auto) 3.3 (2.0-8.3) x10*3/uL Absolute Nucleated RBC 0.000 (0.0-0.012) X10*3/uL Nucleated RBC % (auto) 0.0 (0.0-0.2) /100WBC Sodium 146 H (135-145) mmol/L Potassium 4.4 (3.3-5.1) mmol/L Chloride 120 H (96-108) mmol/L Carbon Dioxide 19 L (22-29) mmol/L Anion Gap 11 L (12-20) BUN 23 H (9-16) mg/dL Creatinine 0.83 (0.5-1.4) mg/dL Estim Creat Clear Calc 68.9 Estimated GFR > 60 Random Glucose 85 (60-115) mg/dL Calcium 8.6 (8.4-10.2) mg/dL Magnesium 1.8 (1.6-2.6) mg/dL Total Bilirubin 0.7 (0.0-1.0) mg/dL AST 24 (5-31) U/L ALT 29 (0-31) U/L Alkaline Phosphatase 89 (39-117) U/L B-Natriuretic Peptide (<100) pg/mL Total Protein 5.7 L (6.5-8.0) g/dL Albumin 3.6 (3.5-5.0) g/dL Urine Color Urine Appearance Urine pH (5.0-9.0) Ur Specific [place] (1.005-1.025) Urine Protein (Neg-Trace) mg/dL Urine Glucose (UA) (Negative) mg/dL Urine Ketones (Negative) mg/dL Urine Blood (Negative) Urine Nitrite (Negative) Ur Leukocyte Esterase (Negative) Salicylates < 5.0 L (15-30) mg/dL Urine Opiates Screen (Not Detect) Urine Fentanyl Screen (Not Detect) Acetaminophen < 17 (<30) mcg/mL Ur Barbiturates Screen (Not Detect) Ur Phencyclidine Scrn (Not Detect) Ur Amphetamines Screen (Not Detect) U Benzodiazepines Scrn (Not Detect) Urine Cocaine Screen (Not Detect) U Marijuana (THC) Screen (Not Detect) Ethyl Alcohol mg/dL COVID-19 (IVIS) Negative (Negative) COVID-19 Clin Com See Note 10/06/22 10/06/22 10/06/22 Range/Units 21:36 21:36 22:16 WBC (4.8-10.8) X10*3/uL RBC (4.20-5.50) X10*6/uL Hgb (12.0-16.0) g/dl Hct (37.0-47.0) % MCV (80.0-98.0) fL MCH (27.0-33.0) pg MCHC (31.0-35.0) g/dl RDW (11.0-16.0) % Plt Count (160-400) X10*3/uL MPV (9.4-12.3) fL Immature Gran % (Auto) (0.0-0.4) % Neut % (Auto) (45-73) % Lymph % (Auto) (20-40) % [place] % (Auto) (2-11) % Eos % (Auto) (0-4) % Baso % (Auto) (0-2) % Lymph # (Auto) (1.2-4.9) X10*3/uL [place] # (Auto) (0.1-1.2) X10*3/uL Eos # (Auto) (0.0-0.4) X10*3/uL Baso # (Auto) (0.0-0.2) X10*3/uL Abs Immat Gran (auto) (0.00-0.03) X10*3/uL Absolute Neuts (auto) (2.0-8.3) x10*3/uL Absolute Nucleated RBC (0.0-0.012) X10*3/uL Nucleated RBC % (auto) (0.0-0.2) /100WBC Sodium (135-145) mmol/L Potassium (3.3-5.1) mmol/L Chloride (96-108) mmol/L Carbon Dioxide (22-29) mmol/L Anion Gap (12-20) BUN (9-16) mg/dL Creatinine (0.5-1.4) mg/dL Estim Creat Clear Calc Estimated GFR Random Glucose (60-115) mg/dL Calcium (8.4-10.2) mg/dL Magnesium (1.6-2.6) mg/dL Total Bilirubin (0.0-1.0) mg/dL AST (5-31) U/L ALT (0-31) U/L Alkaline Phosphatase (39-117) U/L B-Natriuretic Peptide 324 H (<100) pg/mL Total Protein (6.5-8.0) g/dL Albumin (3.5-5.0) g/dL Urine Color Yellow Urine Appearance Clear Urine pH 8.5 (5.0-9.0) Ur Specific [place] <= 1.005 (1.005-1.025) Urine Protein Negative (Neg-Trace) mg/dL Urine Glucose (UA) Negative (Negative) mg/dL Urine Ketones Negative (Negative) mg/dL Urine Blood Negative (Negative) Urine Nitrite Negative (Negative) Ur Leukocyte Esterase Negative (Negative) Salicylates (15-30) mg/dL Urine Opiates Screen (Not Detect) Urine Fentanyl Screen (Not Detect) Acetaminophen (<30) mcg/mL Ur Barbiturates Screen (Not Detect) Ur Phencyclidine Scrn (Not Detect) Ur Amphetamines Screen (Not Detect) U Benzodiazepines Scrn (Not Detect) Urine Cocaine Screen (Not Detect) U Marijuana (THC) Screen (Not Detect) Ethyl Alcohol 46 mg/dL COVID-19 (IVIS) (Negative) COVID-19 Clin Com 01/21/23 01/22/23 01/22/23 Range/Units 22:16 00:33 03:59 WBC (4.8-10.8) X10*3/uL RBC (4.20-5.50) X10*6/uL Hgb (12.0-16.0) g/dl Hct (37.0-47.0) % MCV (80.0-98.0) fL MCH (27.0-33.0) pg MCHC (31.0-35.0) g/dl RDW (11.0-16.0) % Plt Count (160-400) X10*3/uL MPV (9.4-12.3) fL Immature Gran % (Auto) (0.0-0.4) % Neut % (Auto) (45-73) % Lymph % (Auto) (20-40) % [place] % (Auto) (2-11) % Eos % (Auto) (0-4) % Baso % (Auto) (0-2) % Lymph # (Auto) (1.2-4.9) X10*3/uL [place] # (Auto) (0.1-1.2) X10*3/uL Eos # (Auto) (0.0-0.4) X10*3/uL Baso # (Auto) (0.0-0.2) X10*3/uL Abs Immat Gran (auto) (0.00-0.03) X10*3/uL Absolute Neuts (auto) (2.0-8.3) x10*3/uL Absolute Nucleated RBC (0.0-0.012) X10*3/uL Nucleated RBC % (auto) (0.0-0.2) /100WBC Sodium 149 H 147 H (135-145) mmol/L Potassium 4.0 4.4 (3.3-5.1) mmol/L Chloride 121 H 118 H (96-108) mmol/L Carbon Dioxide 19 L 20 L (22-29) mmol/L Anion Gap 13 13 (12-20) BUN 21 H 20 H (9-16) mg/dL Creatinine 0.80 0.82 (0.5-1.4) mg/dL Estim Creat Clear Calc 71.4 69.7 Estimated GFR > 60 > 60 Random Glucose 86 90 (60-115) mg/dL Calcium 8.5 8.5 (8.4-10.2) mg/dL Magnesium (1.6-2.6) mg/dL Total Bilirubin 0.6 (0.0-1.0) mg/dL AST 24 (5-31) U/L ALT 30 (0-31) U/L Alkaline Phosphatase 88 (39-117) U/L B-Natriuretic Peptide (<100) pg/mL Total Protein 5.8 L (6.5-8.0) g/dL Albumin 3.7 (3.5-5.0) g/dL Urine Color Urine Appearance Urine pH (5.0-9.0) Ur Specific [place] (1.005-1.025) Urine Protein (Neg-Trace) mg/dL Urine Glucose (UA) (Negative) mg/dL Urine Ketones (Negative) mg/dL Urine Blood (Negative) Urine Nitrite (Negative) Ur Leukocyte Esterase (Negative) Salicylates (15-30) mg/dL Urine Opiates Screen Not Detected (Not Detect) Urine Fentanyl Screen Not Detected (Not Detect) Acetaminophen (<30) mcg/mL Ur Barbiturates Screen Not Detected (Not Detect) Ur Phencyclidine Scrn Not Detected (Not Detect) Ur Amphetamines Screen Not Detected (Not Detect) U Benzodiazepines Scrn POSITIVE H (Not Detect) Urine Cocaine Screen Not Detected (Not Detect) U Marijuana (THC) Screen Not Detected (Not Detect) Ethyl Alcohol mg/dL COVID-19 (IVIS) (Negative) COVID-19 Clin Com <Basim Ramos MD - Last Filed: 10/07/22 06:22> Independent Interpretation I performed an independent interpretation of an: EKG (Ventricular rate of 54, OK normal, QRS slightly prolonged 136, QT/QTC normal. EKG with sinus bradycardia and right bundle branch block. No signs of acute ischemia) and CT Scan (No acute finding) <JONATHON Ca - Last Filed: 10/07/22 01:25> Critical Care Time Critical Care Time Critical Care Time: No <JONATHON Ca - Last Filed: 10/07/22 01:25> Discharge Plan Discharge Clinical Impression: Drug overdose, Suicide attempt by multiple drug overdose, Acute hypernatremia <JONATHON Ca - Last Filed: 10/07/22 01:25> Patient Disposition: Still a Patient <JONATHON Ca - Last Filed: 10/07/22 01:25> Prescriptions: No Action Trileptal 150 mg topiramate 100 mg tablet 4 tab PO BEDTIME divalproex 125 mg tablet,delayed release (DR/EC) 2 tab PO DAILY diazepam 10 mg tablet PO atenolol 50 mg tablet 2 tab PO DAILY Vitamin C multivitamin omeprazole <JONATHON Ca - Last Filed: 10/07/22 01:25> Interventions: [place]-Suicide Risk Severity Scale Last Done: 10/06/22 21:16 <JONATHON Ca - Last Filed: 10/07/22 01:25>
[2022-10-07] VITALS (9 sets, daily range): BP systolic 133–170; BP diastolic 71–91; PULSE 55–65; RESP 13–17; TEMP 36.3–36.8; O2SAT 96–99
--- NOTE | 2022-10-07 00:16 | PC.NURSE ---
Pt ambulated to BR with staff assist. PT able to urinate on own. PT states I need my nightly meds or I will go manic, and no one here wants to see that . PT reassured but very repetitive.
--- NOTE | 2022-10-07 00:35 | MHC.EDTECH ---
patient orthostatics vitals and additional lab done ,patient observer and patient at bed side .
--- NOTE | 2022-10-07 00:38 | MHC.EDTECH ---
patient had a steady gait and ambulated to the bathroom .
[2022-10-07 01:00] LABS: Alanine Aminotransferase 30 U/L (0-31); Albumin Level 3.7 g/dL (3.5-5.0); Alkaline Phosphatase 88 U/L (39-117); Anion Gap 13 (12-20); Aspartate Amino Transferase 24 U/L (5-31); Bilirubin Total 0.6 mg/dL (0.0-1.0); Blood Urea Nitrogen 21 mg/dL (9-16); Calcium 8.5 mg/dL (8.4-10.2); Carbon Dioxide 19 mmol/L (22-29); Chloride 121 mmol/L (96-108); Creatinine Clr Calc Pharmacy 71.4; Estimated Glomerular Filt Rate > 60; Glucose Random 86 mg/dL (60-115); Sodium 149 mmol/L (135-145); Total Protein 5.8 g/dL (6.5-8.0)
--- NOTE | 2022-10-07 01:03 | MHC.EDTECH ---
per poision control repeated ekg done at 0058 and was given tp provider .
--- NOTE | 2022-10-07 01:28 | PC.NURSE ---
Updated poison control on repeat lab results/EKG. Will continue to monitor.
[2022-10-07 01:46] LABS: B Type Natriuretic Peptide 324 pg/mL (<100)
--- NOTE | 2022-10-07 02:00 | MHC.EDTECH ---
0200 rounding done ,vitals sign taken ,patient is awake ,patient remain on a 1:1 .
--- NOTE | 2022-10-07 02:06 | ECG_ITS ---
Test Reason : SI/OVERDOSED Blood Pressure : / mmHG Vent. Rate : 054 BPM Atrial Rate : 054 BPM P-R Int : 178 ms QRS Dur : 136 ms QT Int : 476 ms P-R-T Axes : 052 018 037 degrees QTc Int : 451 ms Sinus bradycardia Right bundle branch block Abnormal ECG When compared to the previous EKG of No significant changes seen Referred By: Basim Ramos Electronically Signed By:DUANE BARNES MD
[2022-10-07] MEDS: Sodium Chloride 0.45 % 1,000 ML 125 ML IVCONT (02:13)
[2022-10-07 04:24] LABS: Anion Gap 13 (12-20); Blood Urea Nitrogen 20 mg/dL (9-16); Calcium 8.5 mg/dL (8.4-10.2); Carbon Dioxide 20 mmol/L (22-29); Chloride 118 mmol/L (96-108); Creatinine Clr Calc Pharmacy 69.7; Estimated Glomerular Filt Rate > 60; Glucose Random 90 mg/dL (60-115); Potassium 4.4 mmol/L (3.3-5.1); Sodium 147 mmol/L (135-145)
--- NOTE | 2022-10-07 05:16 | ECG_ITS ---
Test Reason : OVERDOSED/SI Blood Pressure : / mmHG Vent. Rate : 053 BPM Atrial Rate : 053 BPM P-R Int : 182 ms QRS Dur : 132 ms QT Int : 466 ms P-R-T Axes : 069 012 038 degrees QTc Int : 437 ms Sinus bradycardia Right bundle branch block Abnormal ECG When compared with ECG of 06-OCT-2022 21:16, No significant change was found Referred By: Basim Ramos Electronically Signed By:AMANDA RAY
--- NOTE | 2022-10-07 05:30 | PC.NURSE ---
PT calm and cooperative, denies SI/HI. 1:1 sitter continues to be at bedside. PT ambulating to the BR.
[2022-10-07] MEDS: Sodium Chloride 0.45 % 1,000 ML 999 ML IVCONT (06:48)
[2022-10-07 08:35] LABS: Anion Gap 12 (12-20); Blood Urea Nitrogen 18 mg/dL (9-16); Calcium 8.4 mg/dL (8.4-10.2); Carbon Dioxide 19 mmol/L (22-29); Chloride 119 mmol/L (96-108); Creatinine Clr Calc Pharmacy 66.5; Estimated Glomerular Filt Rate > 60; Glucose Random 95 mg/dL (60-115); Potassium 3.6 mmol/L (3.3-5.1); Sodium 146 mmol/L (135-145)
== END 2022-10-07 09:25 | disposition home or self-care (01) ==
PROVIDERS: Emergency Medicine Emergency Medical Services; Physician Assistant; Emergency Provider Emergency Medicine
DX: R00.1 Bradycardia, unspecified (principal); T42.6X2A Poisoning by other antiepileptic and sedative-hypnotic drugs, intentional self-harm, initial encounter; E87.0 Hyperosmolality and hypernatremia; E86.0 Dehydration; I45.10 Unspecified right bundle-branch block; F10.90 Alcohol use, unspecified, uncomplicated; Y90.2 Blood alcohol level of 40-59 mg/100 ml; Y92.013 Bedroom of single-family (private) house as the place of occurrence of the external cause; Z20.822 Contact with and (suspected) exposure to COVID-19; Z79.899 Other long term (current) drug therapy
CPT/HCPCS: 36415; 70450; 71045; 80048; 80053; 80143; 80179; 80307; 81003; 82077; 83735; 83880; 85025; 87635; 93005; 96360; 96361; 99285

== ENCOUNTER 2022-12-12 18:12 | Emergency (ER) | payer MEDICARE, SELFPAY ==
--- NOTE | ~2022-12-12 | US_ITS ---
EXAMINATION: US VENOUS ULTRASOUND WITH DOPPLER LOWER EXTREMITY, LEFT CLINICAL INFORMATION: Calf pain COMPARISON: None available. TECHNIQUE: Ultrasound of the deep veins is performed from the hip to the calf with compression sonography and color and pulse Doppler assessment. Spectral analysis with color-flow imaging is performed. FINDINGS: There is normal venous compression and respiratory variation and augmented flow. The visualized common femoral vein, superficial femoral vein, profunda femoral vein, popliteal vein, and the trifurcation region shows no evidence of deep venous thrombosis. There is no significant popliteal fossa cyst. If the patient's symptoms persist, followup ultrasound in 5 days 7 days might be of value to exclude proximal propagation from a non-visualized calf vein. US/US venous duplex LE LT IMPRESSION: No DVT demonstrated in the left lower extremity.
[2022-12-12 18:44] VITALS: BP 190/84; PULSE 63; RESP 19; TEMP 36.6; O2SAT 98; BMI 27.6
--- NOTE | 2022-12-12 18:44 | ED.EXTPRO ---
HPI - Extremity Problem General Chief complaint: Extremity Injury, Lower <JONATHON Bustos - Last Filed: 12/12/22 18:49> Stated complaint: L leg throbbing, trouble walking, knee pain <JONATHON Bustos - Last Filed: 12/12/22 18:49> Time Seen by Provider: 12/12/22 19:57 <JONATHON Bustos - Last Filed: 12/12/22 18:49> Source: patient <Basim Ramos MD - Last Filed: 12/12/22 20:46> Mode of arrival: ambulatory <Basim Ramos MD - Last Filed: 12/12/22 20:46> Limitations: no limitations <Basim Ramos MD - Last Filed: 12/12/22 20:46> History of Present Illness HPI Narrative: 71-year-old female who presents emergency department for evaluation of left lower extremity swelling and pain times 4-5 days. The patient denies any injury. She states she has noticed swelling of her foot, ankle and calf times 4-5 days. She states she is also having pain in her left leg compared to the right leg. The patient denies any injury. She is not on estrogen supplements. She is not gone on any long trips and she has not had any recent surgeries. She denied fever, chills, chest pain, shortness of breath or cough. The patient states that she drinks a large amount of water per day because of medications that she is taking. She also states that she may have had increased salt over the past several weeks and this might explain the swelling in her legs. She states that she is going through a divorce after being for 44 years. She states she is under increased stress and she has depression that is resistant to usual treatment is currently getting ketamine treatment intranasally at [facility]. <Basim Ramos MD - Last Filed: 12/12/22 20:46> Related Data Home medications: Home Medications Medication Instructions Recorded Confirmed Trileptal 10/07/22 Vitamin C 10/07/22 atenolol 50 mg tablet 2 tab PO DAILY 10/07/22 10/07/22 diazepam 10 mg tablet mg PO 10/07/22 divalproex 125 mg tablet,delayed 2 tab PO DAILY 10/07/22 10/07/22 release multivitamin 10/07/22 omeprazole 10/07/22 topiramate 100 mg tablet 4 tab PO BEDTIME 10/07/22 10/07/22 <JONATHON Bustos - Last Filed: 12/12/22 18:49> Allergies/Adverse reactions: Allergies Allergy/AdvReac Type Severity Reaction Status Date / Time Antibiotic Allergy Unknown Anaphylaxis Verified 10/07/22 04:46 ciprofloxacin [From Cipro] Allergy Unknown UNKNOWN Unverified 06/02/20 16:21 codeine [Codeine] Allergy Unknown UNKNOWN Unverified 06/02/20 16:21 cortisone [Cortisone] Allergy Unknown UNKNOWN Unverified 06/02/20 16:21 fexofenadine [Abimbola] Allergy Unknown Unknown Verified 10/07/22 04:46 Iodine and Iodide Containing Allergy Unknown Anaphylaxis Verified 10/07/22 04:46 Produc [IODINE AND IODIDE CONTAINING PRODUC] loratadine [Claritin] Allergy Unknown Unknown Verified 10/07/22 04:46 morphine Allergy Unknown Anaphylaxis Verified 10/07/22 04:46 prednisone Allergy Unknown confusion Verified 10/07/22 04:46 shellfish derived Allergy Unknown UNKNOWN Verified 10/07/22 04:46 [SHELLFISH DERIVED] Sulfa (Sulfonamide Allergy Unknown UNKNOWN Verified 10/07/22 04:46 Antibiotics) ALL ANTIBIOTICS EXCEPT Allergy Unknown UNKNOWN Uncoded 06/02/20 16:21 TETRACYCLINE Codeine Sulfate Allergy Unknown Anaphylaxis Uncoded 10/07/22 04:46 DIURETICS Allergy Unknown UNKNOWN Uncoded 10/07/22 04:46 From Cipro Allergy Unknown UNKNOWN Uncoded 10/07/22 04:46 From Keflex Allergy Unknown UNKNOWN Uncoded 10/07/22 04:46 <JONATHON Bustos - Last Filed: 12/12/22 18:49> Review of Systems Review of Systems: Yes all other systems are reviewed and are negative <Basim Ramos MD - Last Filed: 12/12/22 20:46> [facility] Past Medical History [facility] Narrative: Past medical history: Hypertension, bipolar disorder, vertigo, sinusitis, V-tach status post ablation. Surgical history: No recent surgeries. Social history: She is is currently going through divorce after 44 years of marriage. She denies tobacco use. She occasionally drinks alcohol. She denies drug use. <Basim Ramos MD - Last Filed: 12/12/22 20:46> Social History Social History: Social History Alcohol intake: current Alcohol type: other Advance Directives: Yes Advance Directives Information Provided: Yes Advance Directives on File: Yes Advance Directives Date on File: 09/05/22 <JONATHON Bustos - Last Filed: 12/12/22 18:49> Physical Exam Vital Signs: Vital Signs: Last Vital Signs Temp 98 F 12/12/22 18:44 Pulse 63 12/12/22 18:44 Resp 19 12/12/22 18:44 BP 190/84 H 12/12/22 18:44 Pulse Ox 98 12/12/22 18:44 O2 Del Method Room Air 12/12/22 18:44 BMI result Body Mass Index 27.6 <JONATHON Bustos - Last Filed: 12/12/22 18:49> Vital Signs: Last Vital Signs Temp 98 F 12/12/22 18:44 Pulse 63 12/12/22 18:44 Resp 19 12/12/22 18:44 BP 190/84 H 12/12/22 18:44 Pulse Ox 98 12/12/22 18:44 O2 Del Method Room Air 12/12/22 18:44 BMI result Body Mass Index 27.6 General: Awake, alert, female patient, very pleasant cooperative, does not appear to be in distress, answers all questions appropriately Extremities: The patient does have asymmetric swelling of her lower extremities with the left leg being larger than the right. Patient has swelling on the left is from the knee down and does involve the ankle and foot. The patient has bilateral pitting edema left greater than right. Her extremities are neurovascular intact. <Basim Ramos MD - Last Filed: 12/12/22 20:46> Course Course Course Narrative: RME - 71 yo female with history of bipolar on ketamine treatments at [facility], Raynauds syndrome, who presents to the ER for evaluation of 4 days of left lower leg throbbing pains in her calf. She reports swelling in her left lower leg as well. Ambulated into the triage room. Plan: US LLE to r/o DVT <JONATHON Bustos - Last Filed: 12/12/22 18:49> Medical Decision Making Medical Decision Making MDM Narrative: 71-year-old female who presents emergency department for evaluation of asymmetric swelling of her lower extremities, left greater than right the swelling is from the knee down to the foot. She is also having pain in the left lower extremity. She denied injury, recent travel, estrogen supplementation recent surgeries. She has had no systemic symptoms such as chest pain, shortness of breath, cough. Exam did reveal asymmetric swelling of her left lower extremity compared to the right with bilateral pitting edema. Patient had a duplex ultrasound ordered from provider triage which was negative. I did discuss this negative result with the patient and told her that sometimes a DVT in the calf can be missed on the initial ultrasound and that this needs to be repeated in 4-7 days to ensure that there is not a proper getting clot. Patient understood this discussion and she will discuss getting an outpatient ultrasound , ordered by her primary care provider. The patient states she cannot take diuretics. I advised her to cut salt out of her diet, keep her legs elevated, and reduce the amount of fluid that she is drinking. Patient was given printed and verbal instructions and discharged home. <Basim Ramos MD - Last Filed: 12/12/22 20:46> Discharge Plan Discharge Clinical Impression: Asymmetric edema of both lower extremities <JONATHON Bustos - Last Filed: 12/12/22 18:49> Patient Disposition: Home, Self-Care <JONATHON Bustos - Last Filed: 12/12/22 18:49> Additional Instructions: Your Doppler ultrasound of your left lower extremity did not reveal any blood clots at this time which is very reassuring. Sometimes a Doppler ultrasound can miss a blood clot from the knee down to the foot if it is not big enough. Therefore, you need a repeat Doppler ultrasound of your left lower extremity in 4-7 days. Please call your doctor to arrange this follow-up ultrasound to make sure that you do not have a blood clot that is growing. You do have pitting edema of both lower extremities suggesting that your fluid overloaded. You should cut salt out of your diet You should try to reduce the amount of fluid that you drink. Keep your legs elevated as much as possible to help reduce the swelling. Return to the emergency department if you developed fever, chills, cough, chest pain, shortness of breath or worsening swelling or worsening pain of your lower extremities. Follow-up with your doctor in 2 days. Please return to the emergency department if your symptoms get worse or if you develop any symptoms that are concerning to you. <JONATHON Bustos - Last Filed: 12/12/22 18:49> Prescriptions: No Action Trileptal 150 mg topiramate 100 mg tablet 4 tab PO BEDTIME divalproex 125 mg tablet,delayed release (DR/EC) 2 tab PO DAILY diazepam 10 mg tablet PO atenolol 50 mg tablet 2 tab PO DAILY Vitamin C multivitamin omeprazole <JONATHON Bustos - Last Filed: 12/12/22 18:49>
== END 2022-12-12 20:58 | disposition home or self-care (01) ==
PROVIDERS: Emergency Provider Emergency Medicine Emergency Medical Services; PCP Family Medicine
DX: R60.0 Localized edema (principal); Z79.899 Other long term (current) drug therapy
CPT/HCPCS: 93971; 99282; 99284

== ENCOUNTER 2023-01-28 12:05 | Outpatient (REF) | payer MEDICARE, SELFPAY ==
--- NOTE | ~2023-01-28 | XR_ITS ---
EXAMINATION: XR KNEE, LEFT XR KNEE AP STANDING CLINICAL INFORMATION: Pain. COMPARISON: Radiograph dated 11/24/2018. TECHNIQUE: Four views of the left knee. AP bilateral standing view of the knees was obtained. FINDINGS: Bones and soft tissues are normal. No fracture or joint effusion. Alignment is anatomic. Joint spaces are well maintained. There is no significant varus or valgus configuration noted. No abnormal soft tissue calcification. XR/XR knee LT 2V IMPRESSION: Normal left knee and AP bilateral knee radiographs.
--- NOTE | ~2023-01-28 | XR_ITS ---
EXAMINATION: XR KNEE, LEFT XR KNEE AP STANDING CLINICAL INFORMATION: Pain. COMPARISON: Radiograph dated 11/24/2018. TECHNIQUE: Four views of the left knee. AP bilateral standing view of the knees was obtained. FINDINGS: Bones and soft tissues are normal. No fracture or joint effusion. Alignment is anatomic. Joint spaces are well maintained. There is no significant varus or valgus configuration noted. No abnormal soft tissue calcification. XR/XR knee standing BI IMPRESSION: Normal left knee and AP bilateral knee radiographs.
--- NOTE | ~2023-01-28 | XR_ITS ---
EXAMINATION: XR FOOT, LEFT CLINICAL INFORMATION: Pain status-post injury. COMPARISON: None available. TECHNIQUE: AP, lateral, and oblique views of the left foot. FINDINGS: Bony alignment and mineralization are normal. No fracture, dislocation or left ankle joint effusion is seen. Boehler's angle is normal. There is a tiny plantar calcaneal spur. There is mild bunion formation of the first metatarsal head, and a tiny bunionette is seen of the fifth metatarsal head. No focal soft tissue swelling, gas or foreign body is seen. XR/XR foot LT min 3V IMPRESSION: 1. No fracture, dislocation or left ankle joint effusion is seen. 2. There is mild bunion and bunionette formation.
== END 2023-01-28 12:06 | disposition home or self-care (01) ==
LOC: HO.HOSX 12:05
PROVIDERS: Visit Provider Orthopaedic Surgery
DX: S99.922D Unspecified injury of left foot, subsequent encounter (principal); S80.02XD Contusion of left knee, subsequent encounter; M25.562 Pain in left knee; M25.561 Pain in right knee; M79.672 Pain in left foot; W19.XXXD Unspecified fall, subsequent encounter
CPT/HCPCS: 73560; 73565; 73630; 99212

== ENCOUNTER 2023-02-26 14:46 | Outpatient (REF) | payer MEDICARE, SELFPAY ==
[2023-02-26 15:21] LABS: MANUAL DIFF FLAG NO
[2023-02-26 15:52] LABS: Eosinophils Absolute Auto 0.1 X10*3/uL (0.0-0.4); Eosinophils Percent Auto 3.5 % (0-4); Hematocrit 44.5 % (37.0-47.0); Hemoglobin 13.8 g/dl (12.0-16.0); Imm Gran Abs Auto 0.03 X10*3/uL (0.00-0.03); Imm Gran Pct Auto 0.8 % (0.0-0.4); Lymphocytes Absolute Auto 0.6 X10*3/uL (1.2-4.9); Lymphocytes Percent Auto 15.6 % (20-40); Mean Corpuscular Hemoglobin 27.7 pg (27.0-33.0); Mean Corpuscular Volume 89.4 fL (80.0-98.0); Mean Platelet Volume 9.5 fL (9.4-12.3); Monocytes Absolute Auto 0.4 X10*3/uL (0.1-1.2); Monocytes Percent Auto 10.8 % (2-11); Neutrophils Absolute Auto 2.7 x10*3/uL (2.0-8.3); Neutrophils Percent Auto 68.3 % (45-73); Platelet Count 199 X10*3/uL (160-400); Red Blood Count 4.98 X10*6/uL (4.20-5.50); Red Cell Distribution Width 14.8 % (11.0-16.0)
[2023-02-26 17:27] LABS: Thyroid Stimulating Hormone 1.02 uIU/mL (0.32-4.0)
[2023-02-26 17:37] LABS: Anion Gap 15 (12-20)
[2023-02-26 17:48] LABS: Alanine Aminotransferase 21 U/L (0-31); Albumin Level 4.1 g/dL (3.5-5.0); Alkaline Phosphatase 105 U/L (39-117); Aspartate Amino Transferase 33 U/L (5-31); Bilirubin Direct < 0.1 mg/dL (0.0-0.5); Bilirubin Total 0.3 mg/dL (0.0-1.0); C Reactive Protein 0.39 mg/dL (< or = 0.50); Carbon Dioxide 20 mmol/L (22-29); Chloride 115 mmol/L (96-108); Cholesterol 276 mg/dL; Estimated Glomerular Filt Rate > 60; Glucose Random 102 mg/dL (60-115); HDL Cholesterol 54 mg/dL; LDL Cholesterol Calculated 177 mg/dl; Potassium 4.9 mmol/L (3.3-5.1); Sodium 145 mmol/L (135-145); Total Protein 7.3 g/dL (6.5-8.0); Triglycerides 225 mg/dL
== END 2023-02-26 14:47 | disposition home or self-care (01) ==
LOC: HO.LAB 14:46
PROVIDERS: Visit Provider Psychiatry & Neurology Psychiatry
DX: R53.83 Other fatigue (principal); F32.A Depression, unspecified
CPT/HCPCS: 36415; 80051; 80061; 80076; 81207; 82565; 82947; 84443; 85025; 86140

== ENCOUNTER 2023-05-23 02:30 | Observation (INO) | payer MEDICARE, SELFPAY ==
[2023-05-23] VITALS (7 sets, daily range): BP systolic 158–175; BP diastolic 68–87; PULSE 49–57; RESP 12–26; TEMP 36.4–36.7; O2SAT 92–99; BMI 26.5
--- NOTE | ~2023-05-23 | XR_ITS ---
EXAMINATION: XR CHEST CLINICAL INFORMATION: Shortness of breath. COMPARISON: 10/06/2022 TECHNIQUE: 2 views of the chest were obtained. FINDINGS: The cardiomediastinal silhouette is stable. There is no focal lung consolidation or pleural effusion. The bony structures and soft tissues are unremarkable XR/XR chest 2V IMPRESSION: No evidence for active cardiopulmonary disease.
[2023-05-23 03:13] LABS: COVID-19 Test Negative (Negative); IDNOW Serial# 6674DD1D
[2023-05-23 06:57] LABS: MANUAL DIFF FLAG NO
[2023-05-23 07:03] LABS: Basophils Percent Auto 0.5 % (0-2); Eosinophils Absolute Auto 0.4 X10*3/uL (0.0-0.4); Eosinophils Percent Auto 4.6 % (0-4); Hemoglobin 11.8 g/dl (12.0-16.0); Imm Gran Abs Auto 0.02 X10*3/uL (0.00-0.03); Imm Gran Pct Auto 0.3 % (0.0-0.4); Lymphocytes Absolute Auto 1.3 X10*3/uL (1.2-4.9); Lymphocytes Percent Auto 16.9 % (20-40); Mean Corpuscular HGB Conc 31.9 g/dl (31.0-35.0); Mean Corpuscular Hemoglobin 28.3 pg (27.0-33.0); Mean Corpuscular Volume 88.7 fL (80.0-98.0); Mean Platelet Volume 9.1 fL (9.4-12.3); Monocytes Absolute Auto 0.6 X10*3/uL (0.1-1.2); Monocytes Percent Auto 7.7 % (2-11); Neutrophils Absolute Auto 5.3 x10*3/uL (2.0-8.3); Platelet Count 181 X10*3/uL (160-400); Red Blood Count 4.17 X10*6/uL (4.20-5.50); Red Cell Distribution Width 14.9 % (11.0-16.0); White Blood Count 7.5 X10*3/uL (4.8-10.8)
[2023-05-23 07:05] LABS: B Type Natriuretic Peptide 548 pg/mL (<100); Carbon Dioxide 22 mmol/L (22-29); Chloride 108 mmol/L (96-108); Potassium 4.1 mmol/L (3.3-5.1); Sodium 136 mmol/L (135-145); Troponin-I High Sensitivity 6.6 ng/L (<3.5-17.0)
[2023-05-23 07:06] LABS: Anion Gap 10 (12-20); Bilirubin Total 0.6 mg/dL (0.0-1.0); Blood Urea Nitrogen 11 mg/dL (9-16); Creatinine Clr Calc Pharmacy 67.7; Estimated Glomerular Filt Rate > 60; Glucose Random 96 mg/dL (60-115)
[2023-05-23 07:07] LABS: Alanine Aminotransferase 19 U/L (0-31); Alkaline Phosphatase 96 U/L (39-117); Aspartate Amino Transferase 21 U/L (5-31); Total Protein 6.3 g/dL (6.5-8.0)
[2023-05-23 07:19] LABS: Calcium 9.1 mg/dL (8.4-10.2)
--- NOTE | 2023-05-23 10:29 | PHA.MEDREC ---
Pharmacy Consult ? Medication Reconciliation Pharmacy has completed the medication reconciliation. Patient is very particular about meds. Per patient, norvasc was discontinued but she restarted it since her blood pressure was running high. She states losartan and spironolactone gave her ADRs and her provider in [place] discontinued them. She takes diazepam 30-50 mg at midnight and zolpidem 20mg at midnight (when she goes to bed). She states she cannot tolerate bp meds. Pt also is on trileptal from a provider in [place]. She has no claim history. Per pt, she gets trileptal from the [place] and [facility]. She has the medication with her. she took some of her meds this morning from her bag jovanni
--- NOTE | 2023-05-23 10:48 | P.HPHOSP_ITS ---
History of Present Illness Date of Service: 05/23/23 Chief Complaint: cough and positive covid test at home This is a 72 yo F with a PMH of Bipolar disorder, HTN, history of ventricular tachcardia s/p ablation in her 40s, chornic back pain and others who presents to the ED with a 1 day history of cough, shortness of breath, lower extremity edema, poor appetite and a positive covid test at home. The patient states that she was in her usual state of health on the day prior to arrival. She states she did not each much throughout the day. She reports that at some point during the evening, she began having extreme coughing spells and trouble breathing. She tested her self for covid at home, which she reports was positive. Due to her persistent cough/sob and + covid, she came to the ED. In the ED, she was re-tested for covid, which was negative. However, she was noted to have elevated BNP and LE edema. Hence, admission was requested for further management. The patient is seen and examined in the ED. She reports feeling better at this time. On further questioning, she endorses long standing exertional dyspnea, which she attributes to sinus issues. She reports inability to sleep in the supine positive, which she attributes to her chronic back pain. She reports weight gain as well, but attributes this to poor eating habits. She states her LE is acute in onset and not chronic. Initially, the patient did not want to be admitted, however after explaining to her the risks of leaving, she has agreed to be observed over the next 24 hours. Review of Systems 2 Review of Systems: negative except HPI [facility] Medical History (Updated 05/23/23 @ 11:21 by Abdiaziz Medina MD) Ventricular tachyarrhythmia Pertinent family history: A. Fib in multple family members Surgical History (Updated 05/23/23 @ 11:15 by Abdiaziz Medina MD) History of cardiac radiofrequency ablation Social History Alcohol intake: current Alcohol type: other Advance Directives: Yes Advance Directives on File: Yes Advance Directives Date on File: 09/05/22 Meds Allergies Allergy/AdvReac Type Severity Reaction Status Date / Time Antibiotic Allergy Unknown Anaphylaxis Verified 10/07/22 04:46 ciprofloxacin [From Cipro] Allergy Unknown UNKNOWN Unverified 06/02/20 16:21 codeine [Codeine] Allergy Unknown UNKNOWN Unverified 06/02/20 16:21 cortisone [Cortisone] Allergy Unknown UNKNOWN Unverified 06/02/20 16:21 fexofenadine [Abimbola] Allergy Unknown Unknown Verified 10/07/22 04:46 Iodine and Iodide Containing Allergy Unknown Anaphylaxis Verified 10/07/22 04:46 Produc [IODINE AND IODIDE CONTAINING PRODUC] loratadine [Claritin] Allergy Unknown Unknown Verified 10/07/22 04:46 morphine Allergy Unknown Anaphylaxis Verified 10/07/22 04:46 prednisone Allergy Unknown confusion Verified 10/07/22 04:46 shellfish derived Allergy Unknown UNKNOWN Verified 10/07/22 04:46 [SHELLFISH DERIVED] Sulfa (Sulfonamide Allergy Unknown UNKNOWN Verified 10/07/22 04:46 Antibiotics) ALL ANTIBIOTICS EXCEPT Allergy Unknown UNKNOWN Uncoded 06/02/20 16:21 TETRACYCLINE Codeine Sulfate Allergy Unknown Anaphylaxis Uncoded 10/07/22 04:46 DIURETICS Allergy Unknown UNKNOWN Uncoded 10/07/22 04:46 From Cipro Allergy Unknown UNKNOWN Uncoded 10/07/22 04:46 From Keflex Allergy Unknown UNKNOWN Uncoded 10/07/22 04:46 Active Medications: Current Medications Acetaminophen (Acetaminophen 325 Mg Tablet) 650 mg PO Q6H PRN PRN Reason: Pain, Mild (Pain Scale 1-3) Enoxaparin Sodium (Enoxaparin Sodium 40 Mg/0.4 Ml Syringe) 40 mg SUBCUT Q24H [facility] Sodium Chloride (0.9 % Sodium Chloride Flush 3 Ml Syringe) 3 ml IVFLUSH QSHIFT [facility] Home Medications Medication Instructions Recorded Confirmed Last Taken Type Trileptal 150 mg PO BID@1999,0000 10/07/22 05/23/23 Unknown History diazepam 10 mg tablet 30 - 50 mg PO DAILY@0000 PRN 10/07/22 05/23/23 Unknown History Anxiety divalproex 125 mg tablet,delayed 2 tab PO DAILY 10/07/22 05/23/23 05/23/23 History release topiramate 100 mg tablet 2 tab PO BID@1999,0000 10/07/22 05/23/23 Unknown History aspirin 81 mg tablet,delayed 81 mg PO DAILY 01/28/23 05/23/23 05/22/23 History release (Adult Aspirin Regimen) amlodipine 5 mg tablet 5 mg PO DAILY 05/23/23 05/23/23 05/23/23 History ascorbic acid (vitamin C) 500 mg 500 mg PO DAILY 05/23/23 05/23/23 Unknown History tablet atenolol 50 mg tablet 50 mg PO BID 05/23/23 05/23/23 05/23/23 History multivitamin 1 tab PO DAILY 05/23/23 05/23/23 Unknown History zolpidem 10 mg tablet 20 mg PO DAILY@0000 PRN Insomnia 05/23/23 05/23/23 Unknown History Physical Exam 2 Vital Signs and Narrative: Vital Signs: Last Vital Signs Temp 97.9 F 05/23/23 09:49 Pulse 57 05/23/23 09:49 Resp 15 05/23/23 09:49 BP 170/73 H 05/23/23 09:49 Pulse Ox 94 05/23/23 09:49 O2 Del Method Room Air 05/23/23 09:49 BMI result Body Mass Index 26.5 Const: Other: Constitutional - Awake and Alert, No apparent distress Eyes - PERRLA, EOMI Cardiovascular - S1S2, RRR, minimal LE edema bilaterally ; no JVD Respiratory - Normal lung expansion, Normal respiratory effort, No respiratory distress, CTA bilaterally Gastrointestinal - NT / ND; +BS; No rebound or guarding - No CVA tenderness Extremities - no calf tenderness bilaterall Musculoskeletal - Normal inspection, normal ROM Skin - Warm/Dry Neurological - Alert & oriented x3, No focal deficit Psychological - Appropriate affect Results Labs 05/23/23 05:17 05/23/23 05:17 Labs: Laboratory Results - last 24 hr 05/23/23 05/23/23 02:48 05:17 MCV 88.7 MCH 28.3 MCHC 31.9 RDW 14.9 Plt Count 181 MPV 9.1 L Immature Gran % (Auto) 0.3 Neut % (Auto) 70.0 Lymph % (Auto) 16.9 L [place] % (Auto) 7.7 Eos % (Auto) 4.6 H Baso % (Auto) 0.5 Lymph # (Auto) 1.3 [place] # (Auto) 0.6 Eos # (Auto) 0.4 Baso # (Auto) 0.0 Abs Immat Gran (auto) 0.02 Absolute Neuts (auto) 5.3 Absolute Nucleated RBC 0.000 Nucleated RBC % (auto) 0.0 Anion Gap 10 L Estim Creat Clear Calc 67.7 Estimated GFR > 60 Random Glucose 96 Calcium 9.1 D Total Bilirubin 0.6 AST 21 ALT 19 Alkaline Phosphatase 96 B-Natriuretic Peptide 548 H Total Protein 6.3 L Albumin 4.0 COVID-19 (IVIS) Negative COVID-19 Clin Com See Note Imaging Radiologist's Impressions: Impressions Chest X-Ray 05/23/23 03:00 IMPRESSION: No evidence for active cardiopulmonary disease. Assessment and Plan (1) Elevated brain natriuretic peptide (BNP) level: Status: Acute Plan 72 yo F with a PMH of HTN, ventricular arrhytmias s/p ablation, bipolar d/o who presents to the hospital with a 1 day history of cough, sob and a positive COVID test at home. Her work up in the ED reveals a negative covid test, an elevated BNP and concern over new onset CHF. She is placed under observation for further evaluation. 1. Possible COVID-19 infection Pt reports a positive self test at home; negative here Nontheless, will isolate and manage as positive Given no hypoxia at this time, will hold off on any treatments 2. Elevated BNP The patient does endorse some symptoms of CHF (exertional dyspnea, weight gain, LE edema, orthpnea) but feels that these are attrributable to other various conditions. Clnicially she does not appear to be in over CHF; additionally she reports an allergy to lasix will check 2d echo and monitor on tele she follows up with a non profit financial controller in [place] 3. Bipolar d/o continue baseline meds Continue other baseline meds as appropriate Full Code DVT pptx, Lovenox Time Spent With Patient Time: Total time managing care of this patient today ____ minutes. Quality Stroke Does the patient have a stroke diagnosis?: No VTE Prior VTE?: No VTE Risk Level:: Medical - moderate - high VTE Device Contraindication: Treatment Not Indicated VTE Drug Contraindication: N/A - Med Ordered
[2023-05-23] MEDS: amLODIPine Besylate 5 MG TABLET PO (13:37)
[2023-05-23] MEDS: Aspirin Enteric Coated 81 MG TABLET.DR PO (13:37)
[2023-05-23] MEDS: Enoxaparin Sodium 40 MG/0.4 ML SYRINGE SUBCUT (13:38)
--- NOTE | 2023-05-23 15:40 | PC.NURSE ---
pt declined IV- states wants to go AMA and would like to _Adam- to come down per RN notification
--- NOTE | 2023-05-23 16:06 | PM.EVENT ---
Event Note Date of Service: 05/23/23 Event Note: AMA Note Asked by RN to patient as she was requested discharge. Pt seen and examined. She would like to go home and complete her work up as an outpatient. She is explained the risk of leaving so which include but are not limited to AL, respiratory failure, CHF, worsening covid and potentially . Despite this, she would like to leave. The patient is AAOx3. She is able to explain to me in layman's terms the risk of leaving against medical advice. She has been encouraged to return to the ED should she change her mind. She has been also advised to follow up with PCP/cardiology for further testing relating to CHF. In regards to her positive covid test at home, she has been advised to follow the latest CDC guidelines on isolation. Time Spent With Patient Time: Total time managing care of this patient today ____ minutes.
--- NOTE | 2023-05-23 17:38 | PC.NURSE ---
checked in w md camille morel working on AMA
== END 2023-05-23 21:31 | disposition left against medical advice (07) ==
LOC: HO.ED 06:43 → HO.EDOVER 10:46 → HO.IMC 16:51
PROVIDERS: Admitting Provider Family Medicine; Emergency Provider Emergency Medicine; PCP Family Medicine; Visit Provider Physician Assistant Medical
DX: R05.9 Cough, unspecified (principal); R79.89 Other specified abnormal findings of blood chemistry; R06.02 Shortness of breath; R60.9 Edema, unspecified; I10 Essential (primary) hypertension; F31.9 Bipolar disorder, unspecified; G89.29 Other chronic pain; Z20.822 Contact with and (suspected) exposure to COVID-19; Z11.52 Encounter for screening for COVID-19; Z79.899 Other long term (current) drug therapy
CPT/HCPCS: 36415; 71046; 80053; 83880; 84484; 85025; 87635; 96372; 99222; 99285; J1650

== ENCOUNTER → 2023-05-23 10:41 | Outpatient (BNV) | payer MEDICARE, SELFPAY | PROVIDERS: Admitting Provider Family Medicine; Emergency Provider Emergency Medicine; Visit Provider Family Medicine | DX: R79.89 Other specified abnormal findings of blood chemistry (principal) | CPT/HCPCS: 99235; 99499 ==

== ENCOUNTER 2023-07-31 16:33 | Outpatient (REF) | payer MEDICARE, SELFPAY ==
--- NOTE | ~2023-07-31 | CT_ITS ---
CT SINUS WITHOUT CONTRAST HISTORY: Acute recurrent sinusitis TECHNIQUE: CT images of the paranasal sinuses were acquired without contrast. This CT examination was performed using dose optimization techniques as appropriate, variously including the following: *Automated exposure control *Adjustment of mA and/or kV according to patient size (this includes techniques or standardized protocols for targeted exams where dose is matched to indication/reason for exam; i.e. extremities or head) *Use of iterative reconstruction technique DLP: 548.7 mGy-cm COMPARISON: CT head 10/06/2022 FINDINGS: NASAL CAVITY: Rightward deviation of the nasal septum with a small rightward directed bony spur. Scattered mild mucosal thickening in the nasal cavity. Asymmetric lateral lamellae and fovea ethmoidalis measuring up to 7 mm on the right. There is a more gradual downsloping appearance on the left. The cribriform plate appears intact. FRONTAL SINUS: Right: Small in caliber. Essentially clear. The outflow tract is patent. Left: Essentially clear. The outflow tract is patent. ETHMOID AIR CELLS: Right: Opacified right posterior ethmoid air cell with additional scattered mild to moderate polypoid mucosal thickening. Left: A mucus retention cyst/polyp is noted. Additional scattered mild polypoid mucosal thickening. SPHENOID SINUS: Right: Essentially clear. The outflow tract is patent. Left: Essentially clear. The outflow tract is patent. MAXILLARY SINUS: Right: Mucosal thickening near the ostium which appears occluded. An accessory ostium inferiorly appears patent. Left: Mild polypoid mucosal thickening/small mucous retention cyst. The outflow tract is mildly narrowed, but patent. Accessory ostium inferiorly appears patent. OTHER: The intracranial structures are unremarkable on these low mAs images. The mastoid air cells and middle ear clefts are clear. Evidence of prior root canals. CT/CT sinus wo IV con IMPRESSION: Scattered polypoid mucosal thickening in the paranasal sinuses as described above. No air-fluid levels to indicate acute sinusitis.
[2023-07-31 17:58] LABS: Anion Gap 13 (12-20); Blood Urea Nitrogen 13 mg/dL (9-16); Carbon Dioxide 24 mmol/L (22-29); Chloride 107 mmol/L (96-108); Estimated Glomerular Filt Rate 56; Potassium 4.3 mmol/L (3.3-5.1); Sodium 140 mmol/L (135-145)
== END 2023-07-31 16:34 | disposition home or self-care (01) ==
LOC: HO.CT 16:33
PROVIDERS: PCP Family Medicine; Visit Provider Otolaryngology
DX: J01.91 Acute recurrent sinusitis, unspecified (principal); I10 Essential (primary) hypertension
CPT/HCPCS: 36415; 70486; 80051; 82565; 84520

== ENCOUNTER 2023-08-16 12:23 | Outpatient (AMB) | payer MEDICARE, SELFPAY ==
--- NOTE | 2023-08-16 13:07 | A.OFFVIS_ITS ---
Intake Vital Signs 08/16/23 13:09 Height 5 ft 8 in Weight 160 lb BMI 24.3 Intake Visit Reasons: OV - Worsening Left Knee Pain Intake Note: Kerri is a 72 year old female who presents today for a follow up of her left knee pain. Patient reports that her pain is increasing. Also reports lower back pain, she has been sleeping in a a recliner which she attributes to the back pain. She reports that she has alot of stairs in the house that have become quite difficult. Allergies Antibiotic Allergy (Unknown, Verified 08/16/23 13:11) Anaphylaxis ciprofloxacin [From Cipro] Allergy (Unknown, Verified 08/16/23 13:11) UNKNOWN codeine [Codeine] Allergy (Unknown, Verified 08/16/23 13:11) UNKNOWN cortisone [Cortisone] Allergy (Unknown, Verified 08/16/23 13:11) UNKNOWN fexofenadine [Abimbola] Allergy (Unknown, Verified 08/16/23 13:11) Unknown Iodine and Iodide Containing Produc [IODINE AND IODIDE CONTAINING PRODUC] Allergy (Unknown, Verified 08/16/23 13:11) Anaphylaxis loratadine [Claritin] Allergy (Unknown, Verified 08/16/23 13:11) Unknown morphine Allergy (Unknown, Verified 08/16/23 13:11) Anaphylaxis prednisone Allergy (Unknown, Verified 08/16/23 13:11) confusion shellfish derived [SHELLFISH DERIVED] Allergy (Unknown, Verified 08/16/23 13:11) UNKNOWN Sulfa (Sulfonamide Antibiotics) Allergy (Unknown, Verified 08/16/23 13:11) UNKNOWN Tetracyclines Allergy (Verified 08/16/23 13:11) Unknown Codeine Sulfate Allergy (Unknown, Uncoded 08/16/23 13:11) Anaphylaxis DIURETICS Allergy (Unknown, Uncoded 08/16/23 13:11) UNKNOWN From Cipro Allergy (Unknown, Uncoded 08/16/23 13:11) UNKNOWN From Keflex Allergy (Unknown, Uncoded 08/16/23 13:11) UNKNOWN HPI OV - Worsening Left Knee Pain HPI Details Kerri is a 72 year old woman who returns with complaints of worsening left knee pain. She also complains of worsening LBP. She complains of pain in her knee with daily activity, and says stairs are very difficult. She has a large amount of stairs in her house which makes moving around painful for her. She also complains of worsening LBP, and says she has been sleeping in a recliner recently due to her pain. [facility], [facility] Medical History Ventricular tachyarrhythmia Surgical History History of cardiac radiofrequency ablation Social History Alcohol intake: current Alcohol intake frequency: does not drink Alcohol type: other Patient Tobacco Use Status: Former Tobacco user Advance Directives Date on File: 09/05/22 Review of Systems Const All systems reviewed & are unremarkable except as noted in HPI and below Physical Exam Vital Signs: BMI result Body Mass Index 24.3 Const General: no acute distress, alert and awake Orientation/consciousness: patient oriented x3 HEENT Head: Yes normocephalic and Yes atraumatic Eyes EOM: EOMs intact bilaterally Resp Effort & Inspection: normal respiratory effort and able to speak in complete sentences Cardio Jugular venous distension: no JVD Skin General skin exam: turgor normal Rashes: no rashes Neuro General: patient oriented x3 Extrem Other: Left Leg: Tenderness over retropatellar region left knee. No effusion Full range of motion Psych Appearance: grossly normal Affect: normal affect Attitude: cooperative Office Procedures Joint Injection/Drain Joint Injection/Drain Details: Injected 1 mL of Decadron and 3 mL 1% lidocaine and 3 mL of 0.25% Marcaine. Site was prepped using aseptic technique. Patient tolerated the procedure well. Primary Site: left knee Approach Used: anterolateral Coding 30823 - Large joint Procedure code (CPT) selection complete Results Reviewed Results Reviewed: I personally reviewed relevant radiographs. The knee and foot radiographs are normal Assessment & Plan Assessment & Plan (1) Patellofemoral disorders, left knee: Code(s): M22.2X2 - Patellofemoral disorders, left knee Plan: Retropatellar tenderness to palpation with pain with stairs secondary to patellofemoral OA. I injected her left knee and recommend physical therapy. Orders: Orders PT Evaluation and Treatment 08/16/23 M22.2X2 - Patellofemoral disorders, left knee, M54.50 - Low back pain, unspecified Coding Level of Care Code Est Pt Level 3 (14874) Diagnoses Patellofemoral disorders, left knee M22.2X2 CPT Codes Coding - 76631 Large joint: 38299 - Large joint ([id number])
[2023-08-16 13:09] VITALS: BMI 24.3
== END 2023-08-16 14:41 | disposition home or self-care (01) ==
PROVIDERS: PCP Family Medicine; Visit Provider Orthopaedic Surgery
DX: M22.2X2 Patellofemoral disorders, left knee (principal)
CPT/HCPCS: 20610; 99213

== ENCOUNTER → 2023-08-16 12:23 | Outpatient (BNVA) | payer MEDICARE, SELFPAY | PROVIDERS: PCP Family Medicine; Visit Provider Orthopaedic Surgery | DX: M22.2X2 Patellofemoral disorders, left knee (principal) | CPT/HCPCS: 20610; 99212; J0665; J1100 ==

== ENCOUNTER 2023-11-13 21:59 | Emergency (ER) | payer MEDICARE, SELFPAY ==
--- NOTE | ~2023-11-13 | US_ITS ---
EXAMINATION: US VENOUS ULTRASOUND WITH DOPPLER LOWER EXTREMITY, LEFT CLINICAL INFORMATION: Left calf vein, elevated d-dimer, rule out DVT COMPARISON: 12/12/2022 TECHNIQUE: Ultrasound of the deep veins is performed from the hip to the calf with compression sonography and color and pulse Doppler assessment. Spectral analysis with color-flow imaging is performed. FINDINGS: Partially occlusive thrombus is identified in the popliteal vein. There is otherwise normal venous compression and respiratory variation and augmented flow throughout the remainder of the veins. The visualized common femoral vein, superficial femoral vein, profunda femoral vein, and the trifurcation region show no evidence of deep venous thrombosis. There is no significant popliteal fossa cyst. US/US venous duplex LE LT IMPRESSION: Partially occlusive thrombus in the popliteal vein. This critical result was discussed with Dr. Ramos on 11/14/2023 1:38 AM, and it was ascertained that the content and urgency of the report was understood at the time of direct communication.
[2023-11-13 22:31] VITALS: BP 115/67; PULSE 86; RESP 16; TEMP 37; O2SAT 96; BMI 29.0
--- NOTE | 2023-11-13 22:59 | ED.GENADULT ---
HPI - General Adult General Chief complaint: General Medical Stated complaint: left leg pain Time Seen by Provider: 11/13/23 22:58 Source: patient and family Mode of arrival: ambulatory Limitations: no limitations History of Present Illness HPI narrative: 72-year-old female history of hypertension, bipolar disorder, vertigo, sinusitis, V-tach status post ablation who presents emergency department for evaluation of left calf pain. She states the pain started last night and it was a throbbing sensation. She states the pain improved but this evening when she was doing squats she developed greater than 10/10 pain in her calf. Patient was concerned about the severity of the pain so she came to the emergency department to be seen. Patient states she has been sick over the last 2-3 weeks with fever and URI like symptoms. She also has history of vertigo and she states that she has been sedentary over the past year and has gained 50 lb. Related Data Home Medications Medication Instructions Recorded Confirmed Trileptal 150 mg PO BID@1999,0000 10/07/22 05/23/23 diazepam 10 mg tablet 30 - 50 mg PO DAILY@0000 PRN 10/07/22 05/23/23 Anxiety divalproex 125 mg tablet,delayed 2 tab PO DAILY 10/07/22 05/23/23 release topiramate 100 mg tablet 2 tab PO BID@1999,0000 10/07/22 05/23/23 aspirin 81 mg tablet,delayed 81 mg PO DAILY 01/28/23 05/23/23 release (Adult Aspirin Regimen) amlodipine 5 mg tablet 5 mg PO DAILY 05/23/23 05/23/23 ascorbic acid (vitamin C) 500 mg 500 mg PO DAILY 05/23/23 05/23/23 tablet atenolol 50 mg tablet 50 mg PO BID 05/23/23 05/23/23 multivitamin 1 tab PO DAILY 05/23/23 05/23/23 zolpidem 10 mg tablet 20 mg PO DAILY@0000 PRN Insomnia 05/23/23 05/23/23 losartan 50 mg tablet 50 mg PO BID 08/16/23 Previous Rx's Medication Instructions Recorded apixaban 5 mg (74 tabs) tablets in 5 mg PO Q12H #74 ea 11/14/23 a dose pack (Eliquis DVT-PE Treat 30D Start) Allergies Allergy/AdvReac Type Severity Reaction Status Date / Time Antibiotic Allergy Unknown Anaphylaxis Verified 11/13/23 22:31 ciprofloxacin [From Cipro] Allergy Unknown UNKNOWN Verified 11/13/23 22:31 codeine [Codeine] Allergy Unknown UNKNOWN Verified 11/13/23 22:31 cortisone [Cortisone] Allergy Unknown UNKNOWN Verified 11/13/23 22:31 fexofenadine [Abimbola] Allergy Unknown Unknown Verified 11/13/23 22:31 Iodine and Iodide Containing Allergy Unknown Anaphylaxis Verified 11/13/23 22:31 Produc [IODINE AND IODIDE CONTAINING PRODUC] loratadine [Claritin] Allergy Unknown Unknown Verified 11/13/23 22:31 morphine Allergy Unknown Anaphylaxis Verified 11/13/23 22:31 prednisone Allergy Unknown confusion Verified 11/13/23 22:31 shellfish derived Allergy Unknown UNKNOWN Verified 11/13/23 22:31 [SHELLFISH DERIVED] Sulfa (Sulfonamide Allergy Unknown UNKNOWN Verified 11/13/23 22:31 Antibiotics) Tetracyclines Allergy Unknown Verified 11/13/23 22:31 Codeine Sulfate Allergy Unknown Anaphylaxis Uncoded 08/16/23 13:11 DIURETICS Allergy Unknown UNKNOWN Uncoded 08/16/23 13:11 From Cipro Allergy Unknown UNKNOWN Uncoded 08/16/23 13:11 From Keflex Allergy Unknown UNKNOWN Uncoded 08/16/23 13:11 Review of Systems Review of Systems: Yes all other systems are reviewed and are negative [facility] Past Medical History [facility] Narrative: 72-year-old female with a history of hypertension, bipolar disorder, vertigo, sinusitis, V-tach status post ablation who presents emergency department for evaluation of left calf pain. 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 Advance Directives: Yes Advance Directives on File: Yes Advance Directives Date on File: 09/05/22 Physical Exam ED Vital Signs: Vital Signs - 24 hr 11/13/23 22:31 11/13/23 23:01 Temperature 98.6 F Pulse Rate 86 84 Respiratory Rate 16 18 Blood Pressure 115/67 122/61 Pulse Oximetry 96 94 Oxygen Delivery Method Room Air Room Air BMI result Body Mass Index 29.0 Medications Administered Discontinued Medications Generic Name Dose Route Start Last Admin Trade Name Freq PRN Reason Stop Dose Admin Enoxaparin Sodium 90 mg 11/14/23 00:37 11/14/23 01:10 Enoxaparin Sodium 100 Mg/Ml Syringe 1 mg/kg (90 mg) 11/14/23 00:38 Not Given SUBCUT ONCE ONE Medical Decision Making Medical Decision Making [facility] Narrative: 72-year-old female history of hypertension, bipolar disorder, vertigo, sinusitis, V-tach status post ablation who presents emergency department for evaluation of left calf pain x2 days, worse this evening after she was doing squats in her kitchen. Patient states she has been more sedentary than usual second-degree vertigo and secondary to viral illness over the last 3 weeks. She has not gone on any long trips. She has not on any estrogen supplements. She does report a 50 lb weight gain over the past year. Vital signs were normal. Physical examination revealed no asymmetry to her lower extremities, she has no significant palpable tenderness over her calves or thighs. Differential diagnosis: ?Includes but is not limited to DVT, musculoskeletal pain, musculoskeletal spasm Following evaluation was ordered: CBC, CMP, PT/INR, PTT, D-dimer Course: 00:52 My interpretation patient's laboratory evaluation as follows: PT/INR and PTT were normal. D-dimer was elevated 3245. H&H was normal. Glucose elevated 132. Given the elevated D-dimer and the left calf pain, left lower extremity duplex ultrasound was ordered, drafting technician is here to perform an urgent study for another patient and she will do the ultrasound prior to leaving. The patient does have a left popliteal partially occlusive thrombus. I did discuss this with the patient. Patient was given Eliquis 10 mg orally. She will be started on Eliquis 10 mg q.12 hours x1 week and then Eliquis 5 mg q.12 hours for 3-6 months. Patient was given printed and verbal instructions and discharged home. Admission/Observation Consideration of admission/observation: Escalation of care including admission/observation considered Lab Data MDM Lab Attestation statement: I reviewed the patient's lab results. 11/13/23 23:36 11/13/23 23:36 Labs: Lab Results 11/13/23 Range/Units 23:36 WBC 9.3 (4.8-10.8) X10*3/uL RBC 4.01 L (4.20-5.50) X10*6/uL Hgb 12.3 (12.0-16.0) g/dl Hct 37.4 (37.0-47.0) % MCV 93.3 (80.0-98.0) fL MCH 30.7 (27.0-33.0) pg MCHC 32.9 (31.0-35.0) g/dl RDW 12.6 (11.0-16.0) % Plt Count 271 D (160-400) X10*3/uL MPV 8.6 L (9.4-12.3) fL Immature Gran % (Auto) 1.1 H (0.0-0.4) % Neut % (Auto) 74.9 H (45-73) % Lymph % (Auto) 11.2 L (20-40) % [place] % (Auto) 7.9 (2-11) % Eos % (Auto) 4.3 H (0-4) % Baso % (Auto) 0.6 (0-2) % Lymph # (Auto) 1.0 L (1.2-4.9) X10*3/uL [place] # (Auto) 0.7 (0.1-1.2) X10*3/uL Eos # (Auto) 0.4 (0.0-0.4) X10*3/uL Baso # (Auto) 0.1 (0.0-0.2) X10*3/uL Abs Immat Gran (auto) 0.10 H (0.00-0.03) X10*3/uL Absolute Neuts (auto) 6.9 (2.0-8.3) x10*3/uL Absolute Nucleated RBC 0.000 (0.0-0.012) X10*3/uL Nucleated RBC % (auto) 0.0 (0.0-0.2) /100WBC PT 11.7 (11.1-13.3) SEC INR 1.0 (0.9-1.1) APTT 27.7 (26.0-36.8) SEC D-Dimer High Sensitivty 3245 NG/ML Sodium 140 (135-145) mmol/L Potassium 3.7 (3.3-5.1) mmol/L Chloride 110 H (96-108) mmol/L Carbon Dioxide 22 (22-29) mmol/L Anion Gap 12 (12-20) BUN 12 (9-16) mg/dL Creatinine 1.15 (0.5-1.4) mg/dL Estim Creat Clear Calc 51.7 Estimated GFR 47 Random Glucose 132 H (60-115) mg/dL Calcium 9.3 (8.4-10.2) mg/dL Total Bilirubin 0.4 (0.0-1.0) mg/dL AST 14 (5-31) U/L ALT 11 (0-31) U/L Alkaline Phosphatase 113 (39-117) U/L Total Protein 6.5 (6.5-8.0) g/dL Albumin 3.7 (3.5-5.0) g/dL Independent Historian Clinical information obtained from an independent historian. History obtained from or confirmed by: Spouse Prescription Management I considered prescription management with: Other (Anticoagulant, Eliquis) Chronic Conditions Patient?s care impacted by: Hypertension Discharge Plan Discharge Clinical Impression: Acute deep vein thrombosis (DVT) of calf muscle vein of left lower extremity Patient Disposition: Home, Self-Care Instructions: Deep Vein Thrombosis (ED) Additional Instructions: Your complete blood count was normal, you do not have anemia and you do not appear to have iron deficiency anemia based on your normal MCV (mean corpuscular volume). Your D-dimer was elevated at 3,245 (normal is less than 150). The ultrasound of your left lower extremity revealed a partially occlusive blood clot in the popliteal vein. You were given Eliquis 10 mg orally in the emergency department, this is a blood thinner. You will need to take Eliquis 10 mg orally every 12 hours for 7 days. After 7 days you will need to take Eliquis 5 mg orally every 12 hours for 3-6 months, your doctor will need to determine how long you need to be treated with blood thinners. Follow-up with your doctor for re-evaluation in 1-2 weeks. Please return to the emergency department if your symptoms get worse or if you develop any symptoms that are concerning to you. Prescriptions: New Brooke DVT-PE Treat 30D Start 5 mg (74 tabs) tablets,dose pack 5 mg PO Q12H Qty: 74 0RF No Action Trileptal 150 mg 150 mg PO BID@2000,0000 Rx Instructions: brand name topiramate 100 mg tablet 2 tab PO BID@1999,0000 divalproex 125 mg tablet,delayed release (DR/EC) 2 tab PO DAILY diazepam 10 mg tablet 30 - 50 mg PO DAILY@0000 PRN (Reason: Anxiety) amlodipine 5 mg tablet 5 mg PO DAILY zolpidem 10 mg tablet 20 mg PO DAILY@0000 PRN (Reason: Insomnia) atenolol 50 mg tablet 50 mg PO BID multivitamin Tablet 1 tab PO DAILY ascorbic acid (vitamin C) 500 mg Tablet 500 mg PO DAILY aspirin [Adult Aspirin Regimen] 81 mg tablet,delayed release (DR/EC) 81 mg PO DAILY losartan 50 mg tablet 50 mg PO BID
[2023-11-13 23:01] VITALS: BP 122/61; PULSE 84; RESP 18; O2SAT 94
[2023-11-13 23:46] LABS: MANUAL DIFF FLAG NO
[2023-11-13 23:47] LABS: Basophils Absolute Auto 0.1 X10*3/uL (0.0-0.2); Basophils Percent Auto 0.6 % (0-2); Eosinophils Absolute Auto 0.4 X10*3/uL (0.0-0.4); Eosinophils Percent Auto 4.3 % (0-4); Hematocrit 37.4 % (37.0-47.0); Hemoglobin 12.3 g/dl (12.0-16.0); Imm Gran Pct Auto 1.1 % (0.0-0.4); Lymphocytes Percent Auto 11.2 % (20-40); Mean Corpuscular HGB Conc 32.9 g/dl (31.0-35.0); Mean Corpuscular Hemoglobin 30.7 pg (27.0-33.0); Mean Corpuscular Volume 93.3 fL (80.0-98.0); Mean Platelet Volume 8.6 fL (9.4-12.3); Monocytes Absolute Auto 0.7 X10*3/uL (0.1-1.2); Monocytes Percent Auto 7.9 % (2-11); Neutrophils Absolute Auto 6.9 x10*3/uL (2.0-8.3); Neutrophils Percent Auto 74.9 % (45-73); Platelet Count 271 X10*3/uL (160-400); Red Blood Count 4.01 X10*6/uL (4.20-5.50); Red Cell Distribution Width 12.6 % (11.0-16.0); White Blood Count 9.3 X10*3/uL (4.8-10.8)
[2023-11-13 23:56] LABS: Prothrombin Time 11.7 SEC (11.1-13.3)
[2023-11-13 23:58] LABS: D Dimer High Sensitivity 3245 NG/ML; Partial Thromboplastin Time 27.7 SEC (26.0-36.8)
[2023-11-14 00:16] LABS: Alanine Aminotransferase 11 U/L (0-31); Albumin Level 3.7 g/dL (3.5-5.0); Alkaline Phosphatase 113 U/L (39-117); Anion Gap 12 (12-20); Aspartate Amino Transferase 14 U/L (5-31); Bilirubin Total 0.4 mg/dL (0.0-1.0); Blood Urea Nitrogen 12 mg/dL (9-16); Calcium 9.3 mg/dL (8.4-10.2); Carbon Dioxide 22 mmol/L (22-29); Chloride 110 mmol/L (96-108); Creatinine Clr Calc Pharmacy 51.7; Estimated Glomerular Filt Rate 47; Glucose Random 132 mg/dL (60-115); Potassium 3.7 mmol/L (3.3-5.1); Sodium 140 mmol/L (135-145); Total Protein 6.5 g/dL (6.5-8.0)
[2023-11-14] MEDS: Apixaban 5 MG TABLET 10 MG PO (01:52)
[2023-11-14 01:59] VITALS: BP 115/56; PULSE 65; RESP 17; TEMP 36.6; O2SAT 97
== END 2023-11-14 02:00 | disposition home or self-care (01) ==
PROVIDERS: Emergency Provider Emergency Medicine Emergency Medical Services; PCP Family Medicine
DX: I82.462 Acute embolism and thrombosis of left calf muscular vein (principal); I10 Essential (primary) hypertension
CPT/HCPCS: 36415; 80053; 85025; 85379; 85610; 85730; 93971; 99284

== ENCOUNTER 2024-01-10 12:38 | Outpatient (AMB) | payer MEDICARE, SELFPAY ==
[2024-01-10 12:44] VITALS: BMI 28.9
--- NOTE | 2024-01-10 12:44 | MHC.OFFVIS ---
Vital Signs 01/10/24 12:44 Height 5 ft 8 in Weight 190 lb BMI 28.9 Intake Visit Reasons: Newprob-Left thigh pain/feels like pinch nerve Intake Note: Kerri is a 73 year old female who presents today with complaints of RIGHT thigh pain. Hx of Patellofemoral OA. last injection was administered in the left knee on 08/16/23. Presents today complaining of vertigo, nausea, sweats and fatigue Allergies Antibiotic Allergy (Unknown, Verified 11/13/23 22:31) Anaphylaxis ciprofloxacin [From Cipro] Allergy (Unknown, Verified 11/13/23 22:31) UNKNOWN codeine [Codeine] Allergy (Unknown, Verified 11/13/23 22:31) UNKNOWN cortisone [Cortisone] Allergy (Unknown, Verified 11/13/23 22:31) UNKNOWN fexofenadine [Abimbola] Allergy (Unknown, Verified 11/13/23 22:31) Unknown Iodine and Iodide Containing Produc [IODINE AND IODIDE CONTAINING PRODUC] Allergy (Unknown, Verified 11/13/23 22:31) Anaphylaxis loratadine [Claritin] Allergy (Unknown, Verified 11/13/23 22:31) Unknown morphine Allergy (Unknown, Verified 11/13/23 22:31) Anaphylaxis prednisone Allergy (Unknown, Verified 11/13/23 22:31) confusion shellfish derived [SHELLFISH DERIVED] Allergy (Unknown, Verified 11/13/23 22:31) UNKNOWN Sulfa (Sulfonamide Antibiotics) Allergy (Unknown, Verified 11/13/23 22:31) UNKNOWN Tetracyclines Allergy (Verified 11/13/23 22:31) Unknown Codeine Sulfate Allergy (Unknown, Uncoded 08/16/23 13:11) Anaphylaxis DIURETICS Allergy (Unknown, Uncoded 08/16/23 13:11) UNKNOWN From Cipro Allergy (Unknown, Uncoded 08/16/23 13:11) UNKNOWN From Keflex Allergy (Unknown, Uncoded 08/16/23 13:11) UNKNOWN HPI HPI Newprob-Left thigh pain/feels like pinch nerve: Details: Kerri is a 73 year old female who presents today with complaints of RIGHT thigh pain. Hx of Patellofemoral OA. last injection was administered in the left knee on 08/16/23. Her primary complaint however is burning in her right thigh. This burning often extends from her lumbosacral region down past her knee. She has chronic dizziness and is being treated in [place]. She is not complaining of knee pain today. [facility] Medical History Ventricular tachyarrhythmia Surgical History History of cardiac radiofrequency ablation Social History Alcohol intake: current Alcohol intake frequency: holidays/special occasions only Alcohol type: other Patient Tobacco Use Status: Former Tobacco user Substance Use Type: Marijuana Advance Directives Date on File: 09/05/22 Physical Exam Vital Signs: BMI result Body Mass Index 28.9 Extrem Other: Tenderness to plapation over ITB and soreness of vastus lateralis No clonus and motor grossly intact No reproduceable knee pain Assessment & Plan Assessment & Plan (1) Radiculopathy of leg: Code(s): M54.10 - Radiculopathy, site unspecified Category: Medical Plan: I recommend PT for right lower extremity. She is deconditioned with a history of lumbar radic. She had an MRI 2-3 years ago which demonstrated multi level mild lumbar disease. I think her chronic lack of balance due to disequilibrium is also affecting her gait. If PT is not helpful we may consider referral to pain management. Coding Level of Care Code Est Pt Level 4 (48093) Diagnoses Radiculopathy of leg M54.10
== END 2024-01-10 12:59 | disposition home or self-care (01) ==
PROVIDERS: PCP Family Medicine; Visit Provider Orthopaedic Surgery
DX: M54.16 Radiculopathy, lumbar region (principal)
CPT/HCPCS: 99213

== ENCOUNTER → 2024-01-10 12:38 | Outpatient (BNVA) | payer MEDICARE, SELFPAY | PROVIDERS: PCP Family Medicine; Visit Provider Orthopaedic Surgery | DX: M54.10 Radiculopathy, site unspecified (principal) | CPT/HCPCS: 99212 ==

== ENCOUNTER 2024-01-23 20:49 | Emergency (ER) | payer MEDICARE, SELFPAY ==
--- NOTE | 2024-01-23 21:15 | ECG_ITS ---
Test Reason : CP/HTN Blood Pressure : / mmHG Vent. Rate : 128 BPM Atrial Rate : 000 BPM P-R Int : 000 ms QRS Dur : 142 ms QT Int : 354 ms P-R-T Axes : 000 012 019 degrees QTc Int : 516 ms Atrial fibrillation with rapid ventricular response Right bundle branch block Abnormal ECG When compared with ECG of 07-OCT-2022 00:58, Atrial fibrillation has replaced Sinus rhythm Vent. rate has increased BY 75 BPM T wave inversion now evident in Anterior leads Referred By: Cesar Mott Electronically Signed By:Kaiden Valderrama
--- NOTE | 2024-01-23 21:16 | MHC.EDTECH ---
Registration did not make Triage aware of the chief complaint as Chest Pain. This senior grant writer told the PIT provider @ 2115 and will complete the EKG at this time.
[2024-01-23 21:49] LABS: MANUAL DIFF FLAG NO
[2024-01-23 21:50] LABS: Basophils Percent Auto 0.8 % (0-2); Eosinophils Absolute Auto 0.1 X10*3/uL (0.0-0.4); Eosinophils Percent Auto 1.2 % (0-4); Hematocrit 43.7 % (37.0-47.0); Imm Gran Abs Auto 0.02 X10*3/uL (0.00-0.03); Imm Gran Pct Auto 0.4 % (0.0-0.4); Lymphocytes Absolute Auto 0.8 X10*3/uL (1.2-4.9); Lymphocytes Percent Auto 15.4 % (20-40); Mean Corpuscular HGB Conc 34.3 g/dl (31.0-35.0); Mean Corpuscular Hemoglobin 29.9 pg (27.0-33.0); Mean Corpuscular Volume 87.1 fL (80.0-98.0); Mean Platelet Volume 9.4 fL (9.4-12.3); Monocytes Percent Auto 19.5 % (2-11); Neutrophils Absolute Auto 3.1 x10*3/uL (2.0-8.3); Neutrophils Percent Auto 62.7 % (45-73); Platelet Count 177 X10*3/uL (160-400); Red Blood Count 5.02 X10*6/uL (4.20-5.50); Red Cell Distribution Width 13.5 % (11.0-16.0); White Blood Count 4.9 X10*3/uL (4.8-10.8)
[2024-01-23 21:51] VITALS: BP 180/108; PULSE 116; RESP 14; TEMP 36.8; O2SAT 98; BMI 28.4
[2024-01-23 21:56] LABS: Prothrombin Time 11.6 SEC (11.1-13.3)
--- NOTE | 2024-01-23 22:00 | ED.ARRPALP ---
HPI - Arrhythmia/Palpitations General Chief Complaint: Arrhythmia/Palpitations Stated Complaint: high blood pressure/chest pain Time Seen by Provider: 01/23/24 21:56 Source: patient and old records reviewed Mode of arrival: ambulatory Limitations: no limitations History of Present Illness HPI narrative: 73 yo female with hx of LLE DVT on eliquis, bipolar, depression - just upped her dose of S-ketamine today, ventricular tachycardia managed by [facility] [place] [place] s/p ablation on atenolol here with c/o getting her ketamine dose today sleeping then waking up around 630pm with palpitations. Took magnesium and atenolol but it did not stop started to feel dizzy. Has not had afib before. No CP/SOB. MD complaint: palpitations Onset (ago): hour(s) (630pm) Duration: constant Severity: moderate Context: occurred during rest Arrhythmia history: other (ventricular tachycardia) Associated symptoms: other (dizziness) Treatments prior to arrival: beta-samantha Related Data Home Medications ?Medication ?Instructions ?Recorded ?Confirmed Trileptal 150 mg PO BID@1999,0000 10/07/22 05/23/23 diazepam 10 mg tablet 30 - 50 mg PO DAILY@0000 PRN 10/07/22 05/23/23 Anxiety divalproex 125 mg tablet,delayed 2 tab PO DAILY 10/07/22 05/23/23 release topiramate 100 mg tablet 2 tab PO BID@1999,0000 10/07/22 05/23/23 aspirin 81 mg tablet,delayed 81 mg PO DAILY 01/28/23 05/23/23 release (Adult Aspirin Regimen) amlodipine 5 mg tablet 5 mg PO DAILY 05/23/23 05/23/23 ascorbic acid (vitamin C) 500 mg 500 mg PO DAILY 05/23/23 05/23/23 tablet atenolol 50 mg tablet 50 mg PO BID 05/23/23 05/23/23 multivitamin 1 tab PO DAILY 05/23/23 05/23/23 zolpidem 10 mg tablet 20 mg PO DAILY@0000 PRN Insomnia 05/23/23 05/23/23 losartan 50 mg tablet 50 mg PO BID 08/16/23 Previous Rx's ?Medication ?Instructions ?Recorded apixaban 5 mg (74 tabs) tablets in 5 mg PO Q12H #74 ea 11/14/23 a dose pack (Eliquis DVT-PE Treat 30D Start) Allergies Allergy/AdvReac Type Severity Reaction Status Date / Time Antibiotic Allergy Unknown Anaphylaxis Verified 01/23/24 21:52 ciprofloxacin [From Cipro] Allergy Unknown UNKNOWN Verified 01/23/24 21:52 codeine [Codeine] Allergy Unknown UNKNOWN Verified 01/23/24 21:52 cortisone [Cortisone] Allergy Unknown UNKNOWN Verified 01/23/24 21:52 fexofenadine [Abimbola] Allergy Unknown Unknown Verified 01/23/24 21:52 Iodine and Iodide Containing Allergy Unknown Anaphylaxis Verified 01/23/24 21:52 Produc [IODINE AND IODIDE CONTAINING PRODUC] loratadine [Claritin] Allergy Unknown Unknown Verified 01/23/24 21:52 morphine Allergy Unknown Anaphylaxis Verified 01/23/24 21:52 prednisone Allergy Unknown confusion Verified 01/23/24 21:52 shellfish derived Allergy Unknown UNKNOWN Verified 01/23/24 21:52 [SHELLFISH DERIVED] Sulfa (Sulfonamide Allergy Unknown UNKNOWN Verified 01/23/24 21:52 Antibiotics) Tetracyclines Allergy Unknown Verified 01/23/24 21:52 Codeine Sulfate Allergy Unknown Anaphylaxis Uncoded 01/23/24 21:52 DIURETICS Allergy Unknown UNKNOWN Uncoded 01/23/24 21:52 From Cipro Allergy Unknown UNKNOWN Uncoded 01/23/24 21:52 From Keflex Allergy Unknown UNKNOWN Uncoded 01/23/24 21:52 Review of Systems Review of Systems: Constitutional : No Fever, No Chills, No Fatigue ENT/Mouth : No sore throat, No Rhinorrhea Eyes: No Eye Pain, No Swelling, No Redness Cardiovascular : No Chest Pain, No SOB, No Dyspnea on Exertion, pos palpitations Respiratory : No Cough, No Sputum Gastrointestinal : No Nausea, No Vomiting, No Diarrhea, No abdominal Pain Genitourinary : No Dysuria, No Urinary Frequency, No Hematuria, Musculoskeletal : No joint pain, No Myalgias, No Joint Swelling Skin : No Skin Lesions, No rash Neuro : No Weakness, No Numbness, pos Dizziness, no Headache Psych : No Anxiety/Panic, No Depression Heme/Lymph: No Bruising, No Bleeding,No Lymphadenopathy Endocrine : No Polyuria, No Polydipsia All other systems reviewed and are negative PMFSH Past Medical History Attestation statement: The following information was validated with the patient. Source: old records reviewed Medical History Radiculopathy of leg HTN (hypertension), benign Bipolar disorder Ventricular tachyarrhythmia Surgical History History of cardiac radiofrequency ablation Social History Social History Alcohol intake: current Alcohol intake frequency: holidays/special occasions only Alcohol type: other Patient Tobacco Use Status: Former Tobacco user Substance Use Type: Marijuana Advance Directives: Yes Advance Directives on File: Yes Advance Directives Date on File: 09/05/22 Do you have a plan to hurt others: No Plan Physical Exam Vital Signs: Vital Signs: Last Vital Signs Temp 98.4 F 01/23/24 22:09 Pulse 82 01/23/24 22:09 Resp 12 01/23/24 22:09 BP 139/94 H 01/23/24 22:09 Pulse Ox 94 01/23/24 22:09 O2 Del Method Room Air 01/23/24 22:09 BMI result Body Mass Index 28.4 Appearance: Alert. Oriented X3. No acute distress. Eyes: Pupils equal, round and reactive to light. ENT: Pharynx normal. Neck: Normal inspection. Neck supple. CVS: tachycardic irregular heart rate and rhythm. Pulses normal. Respiratory: No respiratory distress. Breath sounds normal. Abdomen: Soft and nontender. Skin: Skin warm and dry. Normal skin color. Normal skin turgor. Extremities: No lower extremity edema. Neuro: Oriented X 3. No motor deficit. No sensory deficit. 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 we discussed that she should be monitored for a while here and that we should walk her around to see if she goes back to rapid afib with walking. They are very eager to leave and continue to ask the RN about leaving. Medications Administered Discontinued Medications Generic Name Dose Route Start Last Admin Trade Name Freq PRN Reason Stop Dose Admin Diltiazem HCl 10 mg 01/23/24 21:55 01/23/24 22:03 Diltiazem Hcl 50 Mg/10 Ml Vial IVPUSH 01/23/24 21:56 10 mg STAT STA Administration Medical Decision Making Medical Decision Making MDM Narrative: 73 yo female with hx of LLE DVT on eliquis, bipolar, depression - just upped her dose of S-ketamine today, ventricular tachycardia managed by [facility] [place] [place] s/p ablation on atenolol here now with afib with RVR at this time no CP/SOB already on eliquis. No signs of clinical CHF will obtain labs, EKG, and start on IV diltiazem. Could be lyte abnormality, notes her thyroid was checked and is normal, could also be reaction to the ketamine dose she had today. Differential Diagnosis Differential Diagnoses: The differential diagnosis associated with the presentation includes afib with RVR, lyte abnormality, states her thyroid was checked and is normal, reaction to increased dose of her ketamine Admission/Observation Consideration of admission/observation: Escalation of care including admission/observation considered converted to NSR wants to go home and see her own dam operator Lab Data [facility] Lab Attestation statement: I reviewed the patient's lab results. 01/23/24 21:40 01/23/24 21:40 Labs: Lab Results 01/23/24 01/23/24 Range/Units 21:40 22:44 WBC 4.9 (4.8-10.8) X10*3/uL RBC 5.02 D (4.20-5.50) X10*6/uL Hgb 15.0 D (12.0-16.0) g/dl Hct 43.7 (37.0-47.0) % MCV 87.1 (80.0-98.0) fL MCH 29.9 (27.0-33.0) pg MCHC 34.3 (31.0-35.0) g/dl RDW 13.5 (11.0-16.0) % Plt Count 177 D (160-400) X10*3/uL MPV 9.4 (9.4-12.3) fL Immature Gran % (Auto) 0.4 (0.0-0.4) % Neut % (Auto) 62.7 (45-73) % Lymph % (Auto) 15.4 L (20-40) % [place] % (Auto) 19.5 H (2-11) % Eos % (Auto) 1.2 (0-4) % Baso % (Auto) 0.8 (0-2) % Lymph # (Auto) 0.8 L (1.2-4.9) X10*3/uL [place] # (Auto) 1.0 (0.1-1.2) X10*3/uL Eos # (Auto) 0.1 (0.0-0.4) X10*3/uL Baso # (Auto) 0.0 (0.0-0.2) X10*3/uL Abs Immat Gran (auto) 0.02 (0.00-0.03) X10*3/uL Absolute Neuts (auto) 3.1 (2.0-8.3) x10*3/uL Absolute Nucleated RBC 0.000 (0.0-0.012) X10*3/uL Nucleated RBC % (auto) 0.0 (0.0-0.2) /100WBC PT 11.6 (11.1-13.3) SEC INR 1.0 (0.9-1.1) APTT 34.0 D (26.0-36.8) SEC Sodium 133 L (135-145) mmol/L Potassium 3.5 (3.3-5.1) mmol/L Chloride 103 (96-108) mmol/L Carbon Dioxide 18 L (22-29) mmol/L Anion Gap 16 (12-20) BUN 8 L (9-16) mg/dL Creatinine 0.87 (0.5-1.4) mg/dL Estim Creat Clear Calc 66.6 Estimated GFR > 60 Random Glucose 138 H (60-115) mg/dL Calcium 9.6 (8.4-10.2) mg/dL Magnesium 2.1 (1.6-2.6) mg/dL Total Bilirubin 0.5 (0.0-1.0) mg/dL AST 21 (5-31) U/L ALT 18 (0-31) U/L Alkaline Phosphatase 109 (39-117) U/L Troponin I High Sens 7.8 (<3.5-17.0) ng/L B-Natriuretic Peptide 210 H (<100) pg/mL Total Protein 7.3 (6.5-8.0) g/dL Albumin 4.6 (3.5-5.0) g/dL Urine Color Yellow Urine Appearance Clear Urine pH 7.5 (5.0-9.0) Ur Specific [place] <= 1.005 (1.005-1.025) Urine Protein Negative (Neg-Trace) mg/dL Urine Glucose (UA) Negative (Negative) mg/dL Urine Ketones Negative (Negative) mg/dL Urine Blood Negative (Negative) Urine Nitrite Negative (Negative) Ur Leukocyte Esterase Negative (Negative) Independent Interpretation I performed an independent interpretation of an: EKG Interpretation: Rate: 128 Rhythm: afib [address]: normal Normal P waves. Normal PILAR. RBBB. ST T wave : inverted t waves V1-V3, no LYNDSAY qTC: 516 prior studies: RBBB is old The study has been interpreted contemporaneously by me. Rate: 55 Rhythm: sinus bradycardia [address]: left Normal P waves. Normal PILAR. RBBB ST T wave : inverted t waves V1-V2, no LYNDSAY qTC: 426 prior studies: no change from priors The study has been interpreted contemporaneously by me. . Radiology Impression Discussion of test interpretation with radiology: I have reviewed the radiologist's reading. Independent Historian Clinical information obtained from an independent historian. History obtained from or confirmed by: Spouse External Record Review External record reviewed: Inpatient record Critical Care Time Critical Care Time Critical Care Time: Yes Total Critical Care Time: 35 Attestation: repeat EKG, IV diltiazem for rate control in rapid afib I attest to this time spent taking care of the patient Discharge Plan Discharge Clinical Impression: Atrial fibrillation Qualifiers: Atrial fibrillation type: unspecified Qualified Code(s): I48.91 - Unspecified atrial fibrillation Patient Disposition: Home, Self-Care Instructions: A-fib (Atrial Fibrillation) (ED) Additional Instructions: return for palpitations, leg swelling, chest pain, trouble breathing or any other concerns follow up with your dam operator tomorrow - unsure if this was due to the increase in your ketamine dose. you were given one dose of IV diltiazem Prescriptions: No Action Trileptal 150 mg 150 mg PO BID@1999, Rx Instructions: brand name topiramate 100 mg tablet 2 tab PO BID@1999, divalproex 125 mg tablet,delayed release (DR/EC) 2 tab PO DAILY diazepam 10 mg tablet 30 - 50 mg PO DAILY@0000 PRN (Reason: Anxiety) Brooke DVT-PE Treat 30D Start 5 mg (74 tabs) tablets,dose pack 5 mg PO Q12H Qty: 74 0RF amlodipine 5 mg tablet 5 mg PO DAILY zolpidem 10 mg tablet 20 mg PO DAILY@0000 PRN (Reason: Insomnia) atenolol 50 mg tablet 50 mg PO BID multivitamin Tablet 1 tab PO DAILY ascorbic acid (vitamin C) 500 mg Tablet 500 mg PO DAILY aspirin [Adult Aspirin Regimen] 81 mg tablet,delayed release (DR/EC) 81 mg PO DAILY losartan 50 mg tablet 50 mg PO BID Print Language: Nigerian
[2024-01-23 22:03] VITALS: BP 180/108; PULSE 131
[2024-01-23] MEDS: dilTIAZem HCL 50 MG/10 ML VIAL 10 MG IVPUSH (22:03)
[2024-01-23 22:06] VITALS: PULSE 82
[2024-01-23 22:06] LABS: Alanine Aminotransferase 18 U/L (0-31); Albumin Level 4.6 g/dL (3.5-5.0); Alkaline Phosphatase 109 U/L (39-117); Anion Gap 16 (12-20); Aspartate Amino Transferase 21 U/L (5-31); Bilirubin Total 0.5 mg/dL (0.0-1.0); Blood Urea Nitrogen 8 mg/dL (9-16); Calcium 9.6 mg/dL (8.4-10.2); Carbon Dioxide 18 mmol/L (22-29); Chloride 103 mmol/L (96-108); Creatinine Clr Calc Pharmacy 66.6; Estimated Glomerular Filt Rate > 60; Glucose Random 138 mg/dL (60-115); Potassium 3.5 mmol/L (3.3-5.1); Sodium 133 mmol/L (135-145); Total Protein 7.3 g/dL (6.5-8.0)
[2024-01-23 22:09] VITALS: BP 139/94; PULSE 82; RESP 12; TEMP 36.9; O2SAT 94
[2024-01-23 22:12] LABS: B Type Natriuretic Peptide 210 pg/mL (<100)
[2024-01-23 22:13] LABS: Troponin-I High Sensitivity 7.8 ng/L (<3.5-17.0)
[2024-01-23 22:31] LABS: Magnesium 2.1 mg/dL (1.6-2.6)
[2024-01-23 22:50] LABS: Appearance Urine Clear; Color Urine Yellow; Glucose Urine UA Negative (Negative); Leukocyte Esterase Urine Negative (Negative); Nitrite Urine Negative (Negative); PH 7.5 (5.0-9.0); Specific Gravity - Urine <= 1.005 (1.005-1.025); Urine Blood Negative (Negative); Urine Ketones Negative (Negative); Urine Protein Negative (Neg-Trace)
--- NOTE | 2024-01-23 23:06 | ECG_ITS ---
Test Reason : CONVERT Blood Pressure : / mmHG Vent. Rate : 055 BPM Atrial Rate : 055 BPM P-R Int : 164 ms QRS Dur : 144 ms QT Int : 446 ms P-R-T Axes : 047 -05 024 degrees QTc Int : 426 ms Sinus bradycardia Right bundle branch block Minimal voltage criteria for LVH, may be normal variant ( R in aVL ) Possible Lateral infarct , age undetermined Abnormal ECG When compared with ECG of 23-JAN-2024 21:20, Sinus rhythm has replaced Atrial fibrillation Vent. rate has decreased BY 73 BPM Referred By: Michelle Mead Electronically Signed By:Kaiden Valderrama
[2024-01-23 23:39] VITALS: BP 130/78; PULSE 59; RESP 16; TEMP 36.8; O2SAT 97
== END 2024-01-23 23:40 | disposition home or self-care (01) ==
PROVIDERS: Physician Assistant; Emergency Provider Emergency Medicine; PCP Family Medicine
DX: I48.91 Unspecified atrial fibrillation (principal); I49.9 Cardiac arrhythmia, unspecified; I47.20 Ventricular tachycardia, unspecified; R06.02 Shortness of breath; R42 Dizziness and giddiness; R00.2 Palpitations; Z86.718 Personal history of other venous thrombosis and embolism; Z79.01 Long term (current) use of anticoagulants; Z79.899 Other long term (current) drug therapy
CPT/HCPCS: 36415; 80053; 81003; 83735; 83880; 84484; 85025; 85610; 85730; 93005; 96374; 99285

== ENCOUNTER → 2024-01-23 21:15 | Outpatient (BNV) | payer MEDICARE, SELFPAY | PROVIDERS: Emergency Provider Emergency Medicine; PCP Family Medicine; Visit Provider Internal Medicine Cardiovascular Disease | DX: R07.9 Chest pain, unspecified (principal) | CPT/HCPCS: 93010 ==

== ENCOUNTER 2024-01-27 01:35 | Emergency (ER) | payer MEDICARE, SELFPAY ==
--- NOTE | 2024-01-27 | ECG_ITS ---
Test Reason : ABD PX Blood Pressure : / mmHG Vent. Rate : 125 BPM Atrial Rate : 000 BPM P-R Int : 000 ms QRS Dur : 144 ms QT Int : 368 ms P-R-T Axes : 000 -07 000 degrees QTc Int : 531 ms NSR with possible burst of AF Right bundle branch block Abnormal ECG When compared with ECG of 23-JAN-2024 23:13, Wide QRS tachycardia has replaced Sinus rhythm Vent. rate has increased BY 70 BPM Referred By: Generic ED Physician Electronically Signed By:DUANE BARNES MD
--- NOTE | ~2024-01-27 | XR_ITS ---
EXAMINATION: XR CHEST CLINICAL INFORMATION: Fast heart rate, cough, palpitations COMPARISON: 05/23/2023 TECHNIQUE: Frontal view of the chest was obtained. FINDINGS: The lungs are clear with no focal consolidation. No evidence of pneumothorax, pulmonary edema, or pleural effusions. Cardiac size is within normal limits. Calcification is present at the aortic arch. No acute osseous findings are seen. XR/XR chest 1V IMPRESSION: No acute cardiopulmonary findings.
[2024-01-27 01:45] VITALS: BP 166/110; BP 169/105; PULSE 130; PULSE 140; RESP 16; O2SAT 96; BMI 33.9
[2024-01-27 02:12] LABS: Basophils Percent Auto 0.6 % (0-2); Eosinophils Absolute Auto 0.1 X10*3/uL (0.0-0.4); Eosinophils Percent Auto 2.2 % (0-4); Hematocrit 43.7 % (37.0-47.0); Hemoglobin 15.2 g/dl (12.0-16.0); Imm Gran Abs Auto 0.01 X10*3/uL (0.00-0.03); Imm Gran Pct Auto 0.3 % (0.0-0.4); Lymphocytes Absolute Auto 0.7 X10*3/uL (1.2-4.9); Lymphocytes Percent Auto 23.3 % (20-40); MANUAL DIFF FLAG NO; Mean Corpuscular HGB Conc 34.8 g/dl (31.0-35.0); Mean Corpuscular Hemoglobin 30.1 pg (27.0-33.0); Mean Corpuscular Volume 86.5 fL (80.0-98.0); Monocytes Absolute Auto 0.5 X10*3/uL (0.1-1.2); Monocytes Percent Auto 16.1 % (2-11); Neutrophils Absolute Auto 1.8 x10*3/uL (2.0-8.3); Neutrophils Percent Auto 57.5 % (45-73); Platelet Count 134 X10*3/uL (160-400); Red Blood Count 5.05 X10*6/uL (4.20-5.50); Red Cell Distribution Width 13.2 % (11.0-16.0); White Blood Count 3.2 X10*3/uL (4.8-10.8)
[2024-01-27 02:17] LABS: Prothrombin Time 11.9 SEC (11.1-13.3)
--- NOTE | 2024-01-27 02:27 | ED.ARRPALP ---
HPI - Arrhythmia/Palpitations General Chief Complaint: Arrhythmia/Palpitations Stated Complaint: Cough/ A-Fib Time Seen by Provider: 01/27/24 02:05 History of Present Illness HPI narrative: Patient is a 73-year-old female with a history of atrial fibrillation. Currently on Eliquis. History of being on ketamine for bipolar. Just had her dose increased a few days prior. Patient currently being managed at [facility] for her previous history of ventricular tachycardia. Currently is on atenolol. Presented today with having palpitation again. Sudden in onset. Currently on atenolol 50 mg twice a day. Denies any fever chills. No coughing or congestion. Compliant with her bipolar medications. Compliant with her Eliquis. Patient from home. Positive mild coughing. No vomiting. No diaphoresis. No chest pain or shortness of breath. Related Data Home Medications ?Medication ?Instructions ?Recorded ?Confirmed Trileptal 150 mg PO BID@2000,0000 10/07/22 05/23/23 diazepam 10 mg tablet 30 - 50 mg PO DAILY@0000 PRN 10/07/22 05/23/23 Anxiety divalproex 125 mg tablet,delayed 2 tab PO DAILY 10/07/22 05/23/23 release topiramate 100 mg tablet 2 tab PO BID@2000,0000 10/07/22 05/23/23 aspirin 81 mg tablet,delayed 81 mg PO DAILY 01/28/23 05/23/23 release (Adult Aspirin Regimen) amlodipine 5 mg tablet 5 mg PO DAILY 05/23/23 05/23/23 ascorbic acid (vitamin C) 500 mg 500 mg PO DAILY 05/23/23 05/23/23 tablet atenolol 50 mg tablet 50 mg PO BID 05/23/23 05/23/23 multivitamin 1 tab PO DAILY 05/23/23 05/23/23 zolpidem 10 mg tablet 20 mg PO DAILY@0000 PRN Insomnia 05/23/23 05/23/23 losartan 50 mg tablet 50 mg PO BID 08/16/23 Previous Rx's ?Medication ?Instructions ?Recorded apixaban 5 mg (74 tabs) tablets in 5 mg PO Q12H #74 ea 11/14/23 a dose pack (Eliquis DVT-PE Treat 30D Start) Allergies Allergy/AdvReac Type Severity Reaction Status Date / Time Antibiotic Allergy Unknown Anaphylaxis Verified 01/27/24 01:50 ciprofloxacin [From Cipro] Allergy Unknown UNKNOWN Verified 01/27/24 01:50 codeine [Codeine] Allergy Unknown UNKNOWN Verified 01/27/24 01:50 cortisone [Cortisone] Allergy Unknown UNKNOWN Verified 01/27/24 01:50 fexofenadine [Abimbola] Allergy Unknown Unknown Verified 01/27/24 01:50 Iodine and Iodide Containing Allergy Unknown Anaphylaxis Verified 01/27/24 01:50 Produc [IODINE AND IODIDE CONTAINING PRODUC] loratadine [Claritin] Allergy Unknown Unknown Verified 01/27/24 01:50 morphine Allergy Unknown Anaphylaxis Verified 01/27/24 01:50 prednisone Allergy Unknown confusion Verified 01/27/24 01:50 shellfish derived Allergy Unknown UNKNOWN Verified 01/27/24 01:50 [SHELLFISH DERIVED] Sulfa (Sulfonamide Allergy Unknown UNKNOWN Verified 01/27/24 01:50 Antibiotics) Tetracyclines Allergy Unknown Verified 01/27/24 01:50 Codeine Sulfate Allergy Unknown Anaphylaxis Uncoded 01/23/24 21:52 DIURETICS Allergy Unknown UNKNOWN Uncoded 01/23/24 21:52 From Cipro Allergy Unknown UNKNOWN Uncoded 01/23/24 21:52 From Keflex Allergy Unknown UNKNOWN Uncoded 01/23/24 21:52 Review of Systems Review of Systems: Positive palpitation Yes all other systems are reviewed and are negative PMFSH Past Medical History Attestation statement: The following information was validated with the patient. Medical History Radiculopathy of leg HTN (hypertension), benign Bipolar disorder Ventricular tachyarrhythmia Surgical History History of cardiac radiofrequency ablation Social History Social History Alcohol intake: current Alcohol intake frequency: holidays/special occasions only Alcohol type: other Patient Tobacco Use Status: Former Tobacco user Substance Use Type: Marijuana Advance Directives: Yes Advance Directives on File: Yes Advance Directives Date on File: 09/05/22 Do you have a plan to hurt others: No Plan Physical Exam Vital Signs: Vital Signs: Last Vital Signs Pulse 70 01/27/24 05:16 Resp 16 01/27/24 05:16 BP 159/84 H 01/27/24 05:16 Pulse Ox 96 01/27/24 05:16 O2 Del Method Room Air 01/27/24 05:16 BMI result Body Mass Index 33.9 Appearance: Alert. Oriented X3. No acute distress. Eyes: Pupils equal, round and reactive to light. ENT: Pharynx normal. Neck: Normal inspection. Neck supple. No lymph nodes noted. No crepitus CVS: Normal irregular regular tachycardic Respiratory: No respiratory distress. Breath sounds normal. No Wheezing. No rales Abdomen: Soft and nontender. No rigidity. No distention. good BS x4 Skin: Skin warm and dry. Normal skin color. Normal skin turgor. Extremities: No lower extremity edema. Neurovascular intact to all extremities. No Lacerations. No Rash Neuro: Oriented X 3. No motor deficit. No sensory deficit. Moving all extermities. No slurred speech Medications Administered Discontinued Medications Generic Name Dose Route Start Last Admin Trade Name Freq PRN Reason Stop Dose Admin Diltiazem HCl 20 mg 01/27/24 02:25 01/27/24 02:45 Diltiazem Hcl 50 Mg/10 Ml Vial IVPUSH 01/27/24 02:26 20 mg STAT STA Administration Medical Decision Making Medical Decision Making [facility] Narrative: My interpretation patient's EKG shows an atrial fibrillation pattern heart rate is about 130 with a significant right bundle branch block that appears to be old. Patient has a history of atrial fibrillation now back into AFib. A dose of Cardizem was given as patient had previous treatment with Cardizem with good relief. Will monitor patient's heart rate carefully. Troponin ordered. Electrolytes ordered. In stable condition. Patient already on Eliquis Patient white count is normal. H&H was normal. Troponin is negative. The initial EKG appears to be in an atrial fibrillation pattern. Patient was given a dose of Cardizem. Converted spontaneously to a sinus rhythm. Patient in no distress ambulated in the emergency department vital signs remained stable patient wants to follow-up on an outpatient basis does not want to stay in the hospital. Will be discharged home. Differential Diagnosis Differential Diagnoses: The differential diagnosis associated with the presentation includes Atrial fibrillation, ventricular tachycardia, atrial flutter Admission/Observation Consideration of admission/observation: Escalation of care including admission/observation considered Lab Data [facility] Lab Attestation statement: I reviewed the patient's lab results. 01/27/24 02:07 01/27/24 02:07 Labs: Lab Results 01/27/24 Range/Units 02:07 WBC 3.2 L (4.8-10.8) X10*3/uL RBC 5.05 (4.20-5.50) X10*6/uL Hgb 15.2 (12.0-16.0) g/dl Hct 43.7 (37.0-47.0) % MCV 86.5 (80.0-98.0) fL MCH 30.1 (27.0-33.0) pg MCHC 34.8 (31.0-35.0) g/dl RDW 13.2 (11.0-16.0) % Plt Count 134 L (160-400) X10*3/uL MPV 9.0 L (9.4-12.3) fL Immature Gran % (Auto) 0.3 (0.0-0.4) % Neut % (Auto) 57.5 (45-73) % Lymph % (Auto) 23.3 (20-40) % [place] % (Auto) 16.1 H (2-11) % Eos % (Auto) 2.2 (0-4) % Baso % (Auto) 0.6 (0-2) % Lymph # (Auto) 0.7 L (1.2-4.9) X10*3/uL [place] # (Auto) 0.5 (0.1-1.2) X10*3/uL Eos # (Auto) 0.1 (0.0-0.4) X10*3/uL Baso # (Auto) 0.0 (0.0-0.2) X10*3/uL Abs Immat Gran (auto) 0.01 (0.00-0.03) X10*3/uL Absolute Neuts (auto) 1.8 L (2.0-8.3) x10*3/uL Absolute Nucleated RBC 0.000 (0.0-0.012) X10*3/uL Nucleated RBC % (auto) 0.0 (0.0-0.2) /100WBC PT 11.9 (11.1-13.3) SEC INR 1.0 (0.9-1.1) Sodium 131 L (135-145) mmol/L Potassium 3.7 (3.3-5.1) mmol/L Chloride 102 (96-108) mmol/L Carbon Dioxide 16 L (22-29) mmol/L Anion Gap 17 (12-20) BUN 7 L (9-16) mg/dL Creatinine 0.76 (0.5-1.4) mg/dL Estim Creat Clear Calc 67.2 Estimated GFR > 60 Random Glucose 110 (60-115) mg/dL Calcium 9.1 (8.4-10.2) mg/dL Total Bilirubin 0.4 (0.0-1.0) mg/dL AST 26 (5-31) U/L ALT 18 (0-31) U/L Alkaline Phosphatase 112 (39-117) U/L Troponin I High Sens 6.4 (<3.5-17.0) ng/L B-Natriuretic Peptide 145 H (<100) pg/mL Total Protein 7.3 (6.5-8.0) g/dL Albumin 4.3 (3.5-5.0) g/dL Independent Interpretation I performed an independent interpretation of an: EKG (Atrial fibrillation heart rate is 125 QRS is wide consistent with right bundle branch block there has no acute ST segment elevation) Radiology Impression Discussion of test interpretation with radiology: I have reviewed the radiologist's reading. Radiologist Impression: Chest x-ray was negative External Record Review External record reviewed: Inpatient record Chronic Conditions Patient?s care impacted by: Hypertension Discharge Plan Discharge Clinical Impression: Atrial fibrillation Patient Disposition: Home, Self-Care Prescriptions: No Action Trileptal 150 mg 150 mg PO BID@1999, Rx Instructions: brand name topiramate 100 mg tablet 2 tab PO BID@1999, divalproex 125 mg tablet,delayed release (DR/EC) 2 tab PO DAILY diazepam 10 mg tablet 30 - 50 mg PO DAILY@0000 PRN (Reason: Anxiety) Eliquis DVT-PE Treat 30D Start 5 mg (74 tabs) tablets,dose pack 5 mg PO Q12H Qty: 74 0RF amlodipine 5 mg tablet 5 mg PO DAILY zolpidem 10 mg tablet 20 mg PO DAILY@0000 PRN (Reason: Insomnia) atenolol 50 mg tablet 50 mg PO BID multivitamin Tablet 1 tab PO DAILY ascorbic acid (vitamin C) 500 mg Tablet 500 mg PO DAILY aspirin [Adult Aspirin Regimen] 81 mg tablet,delayed release (DR/EC) 81 mg PO DAILY losartan 50 mg tablet 50 mg PO BID Referrals: Franco Mccracken MD [Physician] - 01/29/24 Print Language: Comoran
[2024-01-27 02:29] LABS: Alanine Aminotransferase 18 U/L (0-31); Albumin Level 4.3 g/dL (3.5-5.0); Alkaline Phosphatase 112 U/L (39-117); Anion Gap 17 (12-20); Aspartate Amino Transferase 26 U/L (5-31); Bilirubin Total 0.4 mg/dL (0.0-1.0); Blood Urea Nitrogen 7 mg/dL (9-16); Calcium 9.1 mg/dL (8.4-10.2); Carbon Dioxide 16 mmol/L (22-29); Chloride 102 mmol/L (96-108); Creatinine Clr Calc Pharmacy 67.2; Estimated Glomerular Filt Rate > 60; Glucose Random 110 mg/dL (60-115); Potassium 3.7 mmol/L (3.3-5.1); Sodium 131 mmol/L (135-145); Total Protein 7.3 g/dL (6.5-8.0)
[2024-01-27 02:32] LABS: Troponin-I High Sensitivity 6.4 ng/L (<3.5-17.0)
[2024-01-27 02:45] VITALS: BP 165/143; PULSE 130
[2024-01-27] MEDS: dilTIAZem HCL 50 MG/10 ML VIAL 20 MG IVPUSH (02:45)
[2024-01-27 02:51] VITALS: BP 121/71; PULSE 78
[2024-01-27 02:56] LABS: B Type Natriuretic Peptide 145 pg/mL (<100)
[2024-01-27 04:56] VITALS: BP 159/84; PULSE 65; RESP 18; O2SAT 97
--- NOTE | 2024-01-27 04:57 | MHC.EDTECH ---
MD requested this tech to repeat EKG and perform a ambulation trial with patient. Patient EKG repeated and shown to MD. ambulation trial performed and Patient heart rate started and maintained at 70 bpm and O2 sat was 97% throughout ambulating MD aware of results.
[2024-01-27 05:16] VITALS: BP 159/84; PULSE 70; RESP 16; O2SAT 96
--- NOTE | 2024-01-27 07:54 | ECG_ITS ---
Test Reason : REPEAT/ POST A-FIB Blood Pressure : / mmHG Vent. Rate : 048 BPM Atrial Rate : 048 BPM P-R Int : 158 ms QRS Dur : 132 ms QT Int : 470 ms P-R-T Axes : 041 -12 030 degrees QTc Int : 419 ms Sinus bradycardia Right bundle branch block Abnormal ECG When compared with ECG of 27-JAN-2024 01:51, Sinus rhythm has replaced Possible Atrial fibrillation Vent. rate has decreased BY 77 BPM Referred By: Karol Hoover Electronically Signed By:DUANE BARENS MD
[2024-01-27 08:39] VITALS: BP 137/69; PULSE 67; RESP 18; TEMP 36.6; O2SAT 98
== END 2024-01-27 08:40 | disposition home or self-care (01) ==
PROVIDERS: Emergency Provider Emergency Medicine Emergency Medical Services; PCP Family Medicine
DX: I48.91 Unspecified atrial fibrillation (principal); I49.9 Cardiac arrhythmia, unspecified; R00.2 Palpitations; R00.1 Bradycardia, unspecified; R05.9 Cough, unspecified; I45.10 Unspecified right bundle-branch block; R06.02 Shortness of breath; Z79.01 Long term (current) use of anticoagulants; Z79.899 Other long term (current) drug therapy
CPT/HCPCS: 36415; 71045; 80053; 83880; 84484; 85025; 85610; 93005; 96374; 99284

== ENCOUNTER → 2024-01-27 01:51 | Outpatient (BNV) | payer MEDICARE, SELFPAY | PROVIDERS: Emergency Provider Emergency Medicine Emergency Medical Services; PCP Family Medicine; Visit Provider Internal Medicine Cardiovascular Disease | DX: R94.31 Abnormal electrocardiogram [ECG] [EKG] (principal) | CPT/HCPCS: 93010 ==

== ENCOUNTER 2024-05-03 18:12 | Emergency (ER) | payer MEDICARE, SELFPAY ==
--- NOTE | ~2024-05-03 | XR_ITS ---
EXAMINATION: XR HAND/WRIST, LEFT CLINICAL INFORMATION: Wrist deformity. COMPARISON: None TECHNIQUE: Four views of the left hand and wrist. FINDINGS: There is a comminuted, minimally displaced fracture involving the distal radius. The fracture does not appear to extend to the articular surface of the radius. There is dorsal angulation of the dominant distal fracture fragment. No additional fracture is identified. The overlying soft tissue is mildly swollen. XR/XR hand wrist LT IMPRESSION: Distal radial fracture as described.
--- NOTE | 2024-05-03 18:26 | ED.UPPEXIN ---
HPI - Extremity Injury (Upper) General Chief Complaint: Extremity Injury, Upper Stated Complaint: left wrist broke? Time Seen by Provider: 05/03/24 22:10 Source: patient Mode of arrival: ambulatory Limitations: no limitations History of Present Illness ED Provider: mackenzie PIERCE narrative: Patient's history of chronic vertigo was walking had a vertiginous feeling again lost balance and fell forward tried to break her fall with left wrist comes here with the pain in the left wrist with swelling patient's Eliquis for AFib denied any head injury no headache Related Data Home Medications ?Medication ?Instructions ?Recorded ?Confirmed Trileptal 150 mg PO BID@2000,0000 10/07/22 05/23/23 diazepam 10 mg tablet 30 - 50 mg PO DAILY@0000 PRN 10/07/22 05/23/23 Anxiety divalproex 125 mg tablet,delayed 2 tab PO DAILY 10/07/22 05/23/23 release topiramate 100 mg tablet 2 tab PO BID@1999,0000 10/07/22 05/23/23 aspirin 81 mg tablet,delayed 81 mg PO DAILY 01/28/23 05/23/23 release (Adult Aspirin Regimen) amlodipine 5 mg tablet 5 mg PO DAILY 05/23/23 05/23/23 ascorbic acid (vitamin C) 500 mg 500 mg PO DAILY 05/23/23 05/23/23 tablet atenolol 50 mg tablet 50 mg PO BID 05/23/23 05/23/23 multivitamin 1 tab PO DAILY 05/23/23 05/23/23 zolpidem 10 mg tablet 20 mg PO DAILY@0000 PRN Insomnia 05/23/23 05/23/23 losartan 50 mg tablet 50 mg PO BID 08/16/23 Previous Rx's ?Medication ?Instructions ?Recorded apixaban 5 mg (74 tabs) tablets in 5 mg PO Q12H #74 ea 11/14/23 a dose pack (LYCEEMqufor; to (do) Centers DVT-PE Treat 30D Start) oxycodone-acetaminophen 5 mg-325 1 tab PO Q6H PRN pain #20 tabs 05/03/24 mg tablet (Percocet) Allergies Allergy/AdvReac Type Severity Reaction Status Date / Time Antibiotic Allergy Unknown Anaphylaxis Verified 05/03/24 18:31 ciprofloxacin [From Cipro] Allergy Unknown UNKNOWN Verified 05/03/24 18:31 codeine [Codeine] Allergy Unknown UNKNOWN Verified 05/03/24 18:31 cortisone [Cortisone] Allergy Unknown UNKNOWN Verified 05/03/24 18:31 fexofenadine [Abimbola] Allergy Unknown Unknown Verified 05/03/24 18:31 Iodine and Iodide Containing Allergy Unknown Anaphylaxis Verified 05/03/24 18:31 Produc [IODINE AND IODIDE CONTAINING PRODUC] loratadine [Claritin] Allergy Unknown Unknown Verified 05/03/24 18:31 morphine Allergy Unknown Anaphylaxis Verified 05/03/24 18:31 prednisone Allergy Unknown confusion Verified 05/03/24 18:31 shellfish derived Allergy Unknown UNKNOWN Verified 05/03/24 18:31 [SHELLFISH DERIVED] Sulfa (Sulfonamide Allergy Unknown UNKNOWN Verified 05/03/24 18:31 Antibiotics) Tetracyclines Allergy Unknown Verified 05/03/24 18:31 Codeine Sulfate Allergy Unknown Anaphylaxis Uncoded 01/23/24 21:52 DIURETICS Allergy Unknown UNKNOWN Uncoded 01/23/24 21:52 From Cipro Allergy Unknown UNKNOWN Uncoded 01/23/24 21:52 From Keflex Allergy Unknown UNKNOWN Uncoded 01/23/24 21:52 Review of Systems Review of Systems: Yes all other systems are reviewed and are negative [facility] Past Medical History Medical History Radiculopathy of leg HTN (hypertension), benign Bipolar disorder Ventricular tachyarrhythmia Surgical History History of cardiac radiofrequency ablation Social History Social History Alcohol intake: current Alcohol intake frequency: holidays/special occasions only Alcohol type: other Patient Tobacco Use Status: Former Tobacco user Smoked in Last 30 Days: No Use of substances other than those prescribed or required for medical reasons: No Substance Use Type: Marijuana Advance Directives: Yes Advance Directives on File: Yes Advance Directives Date on File: 09/05/22 Physical Exam Vital Signs: Vital Signs: Last Vital Signs Temp 98 F 05/03/24 23:10 Pulse 50 05/03/24 23:10 Resp 18 05/03/24 23:10 BP 141/53 H 05/03/24 23:10 Pulse Ox 98 05/03/24 23:10 O2 Del Method Room Air 05/03/24 23:10 BMI result Body Mass Index 26.1 Appearance: Alert. Oriented X3. No acute distress. Eyes: PERRLA, No Nystagmus ENT: Pharynx normal. Oral Mucosa moist atraumatic normocephalic Neck: Normal inspection. Neck supple. No midline tenderness CVS: Normal heart rate and rhythm. Pulses normal. Respiratory: No respiratory distress. Equal air entry bilateral, no wheezing/rales/rhonchi Abdomen: Soft and nontender. Bowel sounds are present, Skin: Skin warm and dry. Normal skin color. Normal skin turgor. Extremities: No lower extremity edema. No calf tenderness left wrist with obvious deformity and swelling neurovascular intact Neuro: Oriented X 3. No motor deficit. Course Course Course Narrative: This is a Rapid Medical Exam performed in triage by Carrie Yousif PA-C. Full HPI, ROS and PE to be performed by primary ED provider. 73 yo F w/PMHx bipolar, CAD on Eliquis, vertigo, presenting to the ED c/o L wrist pain / injury s/p fall this afternoon. States fell due to her vertigo (chronic vertigo). Is seeing Neurology in [place]. denies head trauma or LOC. Currently in Ketamine study w/Mass Gen PE: +L wrist deformity. NV intact Plan: XR Medications Administered Discontinued Medications Generic Name Dose Route Start Last Admin Trade Name Freq PRN Reason Stop Dose Admin Acetaminophen 975 mg 05/03/24 20:28 05/03/24 20:44 Acetaminophen 325 Mg Tablet PO 05/03/24 20:29 975 mg ONCE ONE Administration Oxycodone HCl 10 mg 05/03/24 22:46 05/03/24 23:09 Oxycodone Hcl Immed Release 5 Mg Tablet PO 05/03/24 22:47 10 mg ONCE ONE Administration Medical Decision Making Independent Interpretation I performed an independent interpretation of an: Plain X-Ray Interpretation: TECHNIQUE: Four views of the left hand and wrist. FINDINGS: There is a comminuted, minimally displaced fracture involving the distal radius. The fracture does not appear to extend to the articular surface of the radius. There is dorsal angulation of the dominant distal fracture fragment. No additional fracture is identified. The overlying soft tissue is mildly swollen. XR/XR hand wrist LT IMPRESSION: Distal radial fracture as described. Procedures Orthopedic Splinting/Casting Injury #1: Side: left Upper Extremity Injury Location: wrist Upper Extremity Immobilizer: sugar tong splint Discharge Plan Discharge Clinical Impression: Closed left radial fracture Patient Disposition: Home, Self-Care Instructions: Wrist Fracture in Adults (ED) Additional Instructions: Keep the left arm in splint as advised Keep it elevated Pain medication as prescribed Follow with Orthopedics in 2 3 days Prescriptions: New oxycodone-acetaminophen [Percocet] 5-325 mg tablet 1 tab PO Q6H PRN (Reason: pain) Qty: 20 0RF Rx Instructions: Partial Fill upon patient request. No Action Trileptal 150 mg 150 mg PO BID@2000,0000 Rx Instructions: brand name topiramate 100 mg tablet 2 tab PO BID@2000,0000 divalproex 125 mg tablet,delayed release (DR/EC) 2 tab PO DAILY diazepam 10 mg tablet 30 - 50 mg PO DAILY@0000 PRN (Reason: Anxiety) Eliquis DVT-PE Treat 30D Start 5 mg (74 tabs) tablets,dose pack 5 mg PO Q12H Qty: 74 0RF amlodipine 5 mg tablet 5 mg PO DAILY zolpidem 10 mg tablet 20 mg PO DAILY@0000 PRN (Reason: Insomnia) atenolol 50 mg tablet 50 mg PO BID multivitamin Tablet 1 tab PO DAILY ascorbic acid (vitamin C) 500 mg Tablet 500 mg PO DAILY aspirin [Adult Aspirin Regimen] 81 mg tablet,delayed release (DR/EC) 81 mg PO DAILY losartan 50 mg tablet 50 mg PO BID Referrals: Afshan Miles MD [Physician] - 2 days Interventions: ED Discharge Assessment Last Done: 05/03/24 23:10 Discharge Date/Time: 05/03/24 23:16 Print Language: Ethiopian
[2024-05-03 18:27] VITALS: BP 124/41; PULSE 52; RESP 18; TEMP 36.8; O2SAT 98; BMI 26.1
[2024-05-03] MEDS: Acetaminophen 325 MG TABLET 975 MG PO (20:44)
[2024-05-03 21:05] VITALS: BP 141/53; PULSE 47; RESP 19; TEMP 36.6; O2SAT 98
[2024-05-03] MEDS: oxyCODONE HCl Immed Release 5 MG TABLET 10 MG PO (23:09)
[2024-05-03 23:10] VITALS: BP 141/53; PULSE 50; RESP 18; TEMP 36.6; O2SAT 98
== END 2024-05-03 23:16 | disposition home or self-care (01) ==
PROVIDERS: Emergency Provider Internal Medicine; PCP Family Medicine
DX: S52.502A Unspecified fracture of the lower end of left radius, initial encounter for closed fracture (principal); M25.532 Pain in left wrist; I48.91 Unspecified atrial fibrillation; W01.0XXA Fall on same level from slipping, tripping and stumbling without subsequent striking against object, initial encounter; Y93.89 Activity, other specified; Y92.89 Other specified places as the place of occurrence of the external cause; Y99.8 Other external cause status; Z79.01 Long term (current) use of anticoagulants; Z79.899 Other long term (current) drug therapy
CPT/HCPCS: 29125; 73110; 73130; 99284

== ENCOUNTER 2024-05-06 08:33 | Outpatient (AMB) | payer MEDICARE, SELFPAY ==
--- NOTE | 2024-05-06 08:52 | A.OFFVIS_ITS ---
Vital Signs 05/06/24 09:08 Height 5 ft 8 in Weight 171 lb BMI 26.0 Intake Visit Reasons: FC-Closed left radial fracture, DOI 05/03/24 Intake Note: Kerri is a 73 yo left hand dominant female who was referred by ED for evaluation of a closed left radial fracture, DOI 05/03/24 s/p fall during vertigo episode. Patient denies numbness but reports tingling on the left pinky finger that radiates to the left elbow. She is currently taking Percocet for pain with minimal relief. Patient presented today with a sploint done at [facility]. Allergies Antibiotic Allergy (Unknown, Verified 05/06/24 09:08) Anaphylaxis ciprofloxacin [From Cipro] Allergy (Unknown, Verified 05/06/24 09:08) UNKNOWN codeine [Codeine] Allergy (Unknown, Verified 05/06/24 09:08) UNKNOWN cortisone [Cortisone] Allergy (Unknown, Verified 05/06/24 09:08) UNKNOWN fexofenadine [Abimbola] Allergy (Unknown, Verified 05/06/24 09:08) Unknown Iodine and Iodide Containing Produc [IODINE AND IODIDE CONTAINING PRODUC] Allergy (Unknown, Verified 05/06/24 09:08) Anaphylaxis loratadine [Claritin] Allergy (Unknown, Verified 05/06/24 09:08) Unknown morphine Allergy (Unknown, Verified 05/06/24 09:08) Anaphylaxis prednisone Allergy (Unknown, Verified 05/06/24 09:08) confusion shellfish derived [SHELLFISH DERIVED] Allergy (Unknown, Verified 05/06/24 09:08) UNKNOWN Sulfa (Sulfonamide Antibiotics) Allergy (Unknown, Verified 05/06/24 09:08) UNKNOWN Tetracyclines Allergy (Verified 05/06/24 09:08) Unknown Codeine Sulfate Allergy (Unknown, Uncoded 05/06/24 09:08) Anaphylaxis DIURETICS Allergy (Unknown, Uncoded 05/06/24 09:08) UNKNOWN From Cipro Allergy (Unknown, Uncoded 05/06/24 09:08) UNKNOWN From Keflex Allergy (Unknown, Uncoded 05/06/24 09:08) UNKNOWN HPI HPI FC-Closed left radial fracture, DOI 05/03/24: Details: Kerri is a 73 year old left hand dominant woman who presents for a left distal radius fracture, S/P fall, DOI: 05/03/24. She was seen in the ED and placed in a Sugar-tong splint. She has a Hx of chronic vertigo, and this causes her to fall somewhat frequently. She complains of pain in her wrist & forearm, and finds minimal relief from taking Percocets. She complains of intermittent numbness & tingling in her thumb, index, and middle fingers, and dense numbness in her small finger This was not present prior to her injury. She denies any locking or catching. She says she writes & draws at home. She currently lives with her best friend while she is in the process of a divorce, which she finds very stressful. She has a hx of Afib & Bipolar, she is on Eliquis. She follows with with a Economic Specialist in [place]. She reports having several allergies to medications, including penicillins, Keflex, & ciprofloxacin, as well as morphine and Prednisone. She says she is able to take Bactrim & Doxycycline. She is unsure of a reaction to Clindamycin. 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 Review of Systems Const All systems reviewed & are unremarkable except as noted in HPI and below Physical Exam Vital Signs: BMI result Body Mass Index 26.0 Const General: cooperative, healthy appearing and no acute distress Orientation/consciousness: patient oriented x3 HEENT Head: Yes normocephalic and Yes atraumatic Eyes EOM: EOMs intact bilaterally Resp Effort & Inspection: normal respiratory effort and able to speak in complete sentences Cardio Jugular venous distension: no JVD Skin General skin exam: turgor normal Rashes: no rashes Neuro General: patient oriented x3 Extrem Other: Evaluation of Left Upper Extremity: The patient is alert, oriented, and in no acute distress Neuro: Decreased sensation in the median nerve distribution. Dense numbness in the ulnar nerve distribution Vascular: Cap refill brisk ROM: She can make a fist and extend all her digits No locking or catching No tenderness about the elbow Good elbow ROM Skin: No lacerations or abrasions. General: Visible apex volar deformity Radiographs: 3 views of the left wrist, plus a scaphoid view, were taken and viewed by me today in clinic. They show a comminuted distal radius fracture, minimally displaced, with some loss of radial inclination and ~20 degrees of apex volar angulation. Psych Appearance: grossly normal Affect: normal affect Attitude: cooperative Assessment & Plan Assessment & Plan (1) Closed fracture of left distal radius: Code(s): S52.502A - Unspecified fracture of the lower end of left radius, initial encounter for closed fracture Category: Medical (2) Atrial fibrillation: Code(s): I48.91 - Unspecified atrial fibrillation Category: Medical Qualifiers: Atrial fibrillation type: unspecified Qualified Code(s): I48.91 - Unspecified atrial fibrillation (3) Bipolar disorder: Code(s): F31.9 - Bipolar disorder, unspecified Category: Medical (4) Numbness of left hand: Code(s): R20.0 - Anesthesia of skin Category: Medical Plan Assessment & Plan: 1. Left comminuted distal radius fracture, extra-articular With ~20 degrees of apex volar angulation. From a fall, DOI: 05/03/24 2. Left hand numbness, S/P fall DOI: 05/03/24 Decreased sensation in the median nerve distribution, not present prior to her injury Dense numbness in the ulnar nerve distribution, not present prior to her injury I educated her about this condition I discussed operative and non-operative treatment options The patient would like to proceed with surgery She was fitted for a velcro wrist splint, to be worn until her DOS I discussed activity modifications, she is to lift nothing heavier than a cellphone for the next 6 weeks The risks and benefits of operative treatment were discussed with the patient and the patient wishes to proceed with surgery. These risks include, but are not limited to risk of damage to blood vessels, nerves, tendons, infection, recurrence, incomplete relief of preoperative symptoms, persistent pain, possible need for further surgery and the risks associated with regional blocks and anesthesia. The plan is to take the patient to the operating room sometime on 05/11/24 for the following procedures: 1. Left distal radius ORIF, under general 2. Left carpal tunnel release, under general All of the preoperative paperwork including the consent was reviewed today. All the patient's questions were answered. The patient understands that they will be contacted by our supervisor tree trimming soon to schedule this procedure She denies Diabetes, asthma, lung, kidney issues She has Afib & is on Eliquis. She will require cardiac clearance prior to surgery and will need to speak with her Economic Specialist & PCP concerning stopping or changing her Eliquis. Her Economic Specialist is in [place], but her PCP is here in [place]. She has Bipolar disorder She reports having several allergies to medications, including penicillins, Keflex, ciprofloxacin, tetracyclines, and other sulfa Abx. She is also allergic to morphine, Codeine, and Prednisone. She says she is able to take Bactrim & Doxycycline. She is unsure of a reaction to Clindamycin and will work on getting her allergen report from her specialist is [place]. Scribed for Afshan Miles MD by Dylon Gerard, medical oncology physician, on 05/06/24 at 9:40 AM, EST. Orders: Orders XR wrist LT w scaphoid Today M25.532 - Pain in left wrist Coding Level of Care Code New Pt Level 4 (74741) Diagnoses Closed fracture of left distal radius S52.502A Atrial fibrillation I48.91 Atrial fibrillation type: unspecified Bipolar disorder F31.9 Numbness of left hand R20.0
[2024-05-06 09:08] VITALS: BMI 26.0
== END 2024-05-06 10:17 | disposition home or self-care (01) ==
PROVIDERS: PCP Family Medicine; Visit Provider Orthopaedic Surgery
DX: S52.502A Unspecified fracture of the lower end of left radius, initial encounter for closed fracture (principal); I48.91 Unspecified atrial fibrillation; F31.9 Bipolar disorder, unspecified; R20.0 Anesthesia of skin
CPT/HCPCS: 99214

== ENCOUNTER 2024-05-06 08:33 | Outpatient (REF) | payer MEDICARE, SELFPAY | END 2024-05-06 08:34 | disposition home or self-care (01) | LOC: HO.HOSX 08:33 | PROVIDERS: PCP Family Medicine; Visit Provider Orthopaedic Surgery | DX: R20.0 Anesthesia of skin (principal) | CPT/HCPCS: 99212 ==

== ENCOUNTER 2024-05-11 08:15 | Day surgery (SDC) | payer MEDICARE, SELFPAY ==
[2024-05-11] VITALS (8 sets, daily range): BP systolic 128–154; BP diastolic 48–71; PULSE 51–69; RESP 15–20; TEMP 36.1–36.6; O2SAT 95–98; BMI 26.0; BMI 26.3
--- NOTE | 2024-05-11 07:45 | MHC.SHP ---
Pre-Procedural Eval Section A - 24 Hr Update-Section A only Date of Service: 05/11/24 The patient is an INPATIENT: No Changes since office visit: No Cold of Flu in the past 2 weeks, No New Medical Problems, No Changes in Medication and No Patient answered all questions The patient has been examined within 24 hours of the surgical procedure. The History & Physical has been completed within 30 days and I have reviewed it.: Yes Section B - Complete if H&P > 30 days Chief Complaint: Unspecified fracture of the lower end of left radi Allergies: Allergies Allergy/AdvReac Type Severity Reaction Status Date / Time Antibiotic Allergy Unknown Anaphylaxis Verified 05/06/24 09:08 ciprofloxacin [From Cipro] Allergy Unknown UNKNOWN Verified 05/06/24 09:08 codeine [Codeine] Allergy Unknown UNKNOWN Verified 05/06/24 09:08 cortisone [Cortisone] Allergy Unknown UNKNOWN Verified 05/06/24 09:08 fexofenadine [Abimbola] Allergy Unknown Unknown Verified 05/06/24 09:08 Iodine and Iodide Containing Allergy Unknown Anaphylaxis Verified 05/06/24 09:08 Produc [IODINE AND IODIDE CONTAINING PRODUC] loratadine [Claritin] Allergy Unknown Unknown Verified 05/06/24 09:08 morphine Allergy Unknown Anaphylaxis Verified 05/06/24 09:08 prednisone Allergy Unknown confusion Verified 05/06/24 09:08 shellfish derived Allergy Unknown UNKNOWN Verified 05/06/24 09:08 [SHELLFISH DERIVED] Sulfa (Sulfonamide Allergy Unknown UNKNOWN Verified 05/06/24 09:08 Antibiotics) Tetracyclines Allergy Unknown Verified 05/06/24 09:08 Codeine Sulfate Allergy Unknown Anaphylaxis Uncoded 05/06/24 09:08 DIURETICS Allergy Unknown UNKNOWN Uncoded 05/06/24 09:08 From Cipro Allergy Unknown UNKNOWN Uncoded 05/06/24 09:08 From Keflex Allergy Unknown UNKNOWN Uncoded 05/06/24 09:08 Plan I have reviewed the history and physical and performed a pertinent physical examination on my patient. No changes have occurred unless specified. Time Spent With Patient Time: Total time managing care of this patient today ____ minutes.
--- NOTE | 2024-05-11 07:45 | W.PM.OPN ---
Operative Note Operative Note Date of Service: 05/11/24 Narrative: Operative Note Narrative: Preop diagnosis: 1. Left Distal radius fracture 2. Left carpal tunnel syndrome Postop diagnosis: Same Procedure: 1. Left Distal radius fracture open reduction internal fixation, extra-articular 2. Left carpal tunnel release Surgeon: Afshan Miles MD Protective Signal Operations Supervisor: None Anesthesia: General anesthesia plus regional block Findings: Distal radius fracture Implants: A 3 hole narrow Accu Med volar locking plate, with 5 X 2.3 mm locking pegs/screws, and 3 3.5 mm cortical screws Tourniquet time: 67 minutes EBL: 5.0 ml Specimen: None Drains: None Complications: None Disposition: Brought to the recovery room in stable condition Plan: Follow-up in 10-14 days for wound check, suture removal and postop radiographs The patient will be placed in either a short-arm cast or a volar wrist splint. Encouraged no lifting of anything heavier than a cell phone. Please encourage active and passive range of motion of the digits. Follow-up at 4-5 weeks postop for repeat radiographs. Indications: The patient is a 73 year old woman with a left distal radius fracture . The risks and benefits of operative treatment, including but not limited to risk of damage to blood vessels, nerves, tendons, infection, recurrence, persistent pain or numbness, incomplete resolution of preoperative symptoms, or need for further surgery were discussed with the patient and they wished to proceed with surgery. Procedure: Once consent was obtained patient was brought back to the operating suite and placed in the operating table in a supine position. A regional block was performed by the anesthesia team. Perioperative antibiotics and anesthesia was administered by the anesthesia team. A tourniquet was applied to the proximal aspect of the left upper extremity and the limb was prepped and draped in a standard surgical fashion. The limb was elevated exsanguinated with Esmarch bandage and the tourniquet inflated to 250 mm of mercury for a total tourniquet time of 67 minutes. Once assured that we had a good block, a 2.0 cm longitudinal incision was made centered over the left carpal tunnel. The incision was made through the skin to the subcutaneous tissues using a #15 blade. Dissection was made down to the level of the transverse carpal ligament with care being taken to protect the palmar cutaneous nerve. Once the transverse carpal ligament was clearly visualized, a longitudinal incision was made in the transverse carpal ligament 1st using a #15 blade, then using tenotomy scissors under direct visualization. Care was taken to look for and protect the motor branch of the median nerve when seen in this area. Once satisfied with our carpal tunnel release the wound was irrigated with normal saline. The FluoroScan was used throughout the case to assess our reduction, and facilitate implant placement. A gentle closed reduction was 1st performed on the patient's left distal radius fracture. Was assessed radiographically before proceeding with the reduction internal fixation. I then made an 8 cm longitudinal incision over the distal aspect of the flexor carpi radialis tendon. The incision was made through the skin to the subcutaneous tissue using a 15. Blade. Then carefully dissected down to flexor carpi radialis tendon she tenotomy scissors. The FCR tendon sheath was then incised longitudinally using tenotomy scissors under direct visualization. The FCR tendon was then retracted ulnarly. I then made a longitudinal incision in the volar forearm fascia through the floor of FCR tendon sheath using tenotomy scissors under direct visualization. I identified the interval between the radial artery and the flexor tendons. This interval was developed further with my index finger, releasing some of the muscular fibers of the flexor pollicis longus. A dull weatlander retractor was then placed. I then created an ulnarly based flap of the pronator quadratus by releasing the radial and distal edges using a 15. Blade. A Baltazar elevator was used to elevate the pronator quadratus from the volar surface of the distal radius. This then revealed to us our distal radius fracture. An open reduction was then performed on our distal radius fracture. I then placed a short narrow 3 hole Accu Med volar locking plate on the volar surface of the distal radius. I placed a single K-wire through the distal aspect of the plate and into the distal radius. This was assessed using fluoroscopic images. I was satisfied with the placement of our plate. I then placed 5 fax 2.3 mm locking screws/pegs in the distal aspect of the plate and distal radius by 1st drilling bicortically with a 1.8 mm drill bit, measuring with a depth gauge, and placing the appropriate length locking screws/pegs. The placement of our plate and screws was then assessed again using fluoroscopic images. The once satisfied with the placement of the volar locking plate and screws on the distal aspect of the distal radius, the plate was then reduced to the shaft of the radius. I then placed 3 3.5 mm cortical screws to the proximal aspect of the plate and into the shaft of the radius. This was done by 1st drilling bicortically with a 2.8 mm drill bit, measuring with a depth gauge, and placing the appropriate length screw. Final radiographs were then obtained. The DRUJ was assessed and found to be stable on exam. I was satisfied with our reduction and placement of all implants. At this point the wound was irrigated with normal saline. The pronator quadratus was reduced back over the volar locking plate using some 3-0 Vicryl suture material. The tourniquet was then deflated and hemostasis was obtained with a brief period of local pressure and bipolar monopolar electrocautery. The subcutaneous layer was then reapproximated using some 4-0 Vicryl suture, and the skin edges were reapproximated using some 5 0 Prolene suture. The wound was then infiltrated with some 1% lidocaine with epinephrine postop pain control. A sterile dressing and a short dorsal splint allowing for active flexion and extension of the digits was applied. The patient appears to have tolerated the procedure well and with no complications. All digits were well vascularized conclusion of the case.
[2024-05-11] MEDS: Lactated Ringers 1,000 ML 50 ML IVCONT (08:52)
--- NOTE | 2024-05-11 08:59 | MHC.SHP ---
Pre-Procedural Eval Section A - 24 Hr Update-Section A only Date of Service: 05/11/24 The patient is an INPATIENT: No Changes since office visit: No Cold of Flu in the past 2 weeks, No New Medical Problems, No Changes in Medication and No Patient answered all questions The patient has been examined within 24 hours of the surgical procedure. The History & Physical has been completed within 30 days and I have reviewed it.: Yes Section B - Complete if H&P > 30 days Chief Complaint: Unspecified fracture of the lower end of left radi Allergies: Allergies Allergy/AdvReac Type Severity Reaction Status Date / Time ciprofloxacin [From Cipro] Allergy Severe Anaphylaxis Verified 05/11/24 08:33 Iodine and Iodide Containing Allergy Severe Anaphylaxis Verified 05/11/24 08:33 Produc [IODINE AND IODIDE CONTAINING PRODUC] morphine Allergy Severe Anaphylaxis Verified 05/11/24 08:33 prednisone Allergy Severe confusion Verified 05/11/24 08:33 shellfish derived Allergy Severe Anaphylaxis Verified 05/11/24 08:33 [SHELLFISH DERIVED] Sulfa (Sulfonamide Allergy Severe UNKNOWN Verified 05/11/24 08:33 Antibiotics) Tetracyclines Allergy Severe Anaphylaxis Verified 05/11/24 08:33 vancomycin Allergy Severe Anaphylaxis Verified 05/11/24 08:33 Antibiotic Allergy Unknown Anaphylaxis Verified 05/06/24 09:08 codeine [Codeine] Allergy Unknown UNKNOWN Verified 05/06/24 09:08 cortisone [Cortisone] Allergy Unknown UNKNOWN Verified 05/06/24 09:08 fexofenadine [Abimbola] Allergy Unknown Unknown Verified 05/06/24 09:08 loratadine [Claritin] Allergy Unknown Unknown Verified 05/06/24 09:08 latex Allergy Rash Verified 05/11/24 08:40 From Cipro Allergy Severe Anaphylaxis Uncoded 05/11/24 08:32 From Keflex Allergy Severe Anaphylaxis Uncoded 05/11/24 08:32 Codeine Sulfate Allergy Unknown Anaphylaxis Uncoded 05/06/24 09:08 DIURETICS Allergy Unknown UNKNOWN Uncoded 05/06/24 09:08 Plan I have reviewed the history and physical and performed a pertinent physical examination on my patient. No changes have occurred unless specified. Time Spent With Patient Time: Total time managing care of this patient today ____ minutes.
== END 2024-05-11 13:47 | disposition home or self-care (01) ==
PROVIDERS: PCP Family Medicine; Visit Provider Orthopaedic Surgery
PROC: (CPT 25607; principal; 2024-05-11 10:00)
PROC: (CPT 64721; 2024-05-11 10:00)
DX: S52.502A Unspecified fracture of the lower end of left radius, initial encounter for closed fracture (principal); G56.02 Carpal tunnel syndrome, left upper limb; R20.0 Anesthesia of skin; W18.39XA Other fall on same level, initial encounter; Y93.9 Activity, unspecified; Y92.9 Unspecified place or not applicable; Y99.9 Unspecified external cause status; H81.4 Vertigo of central origin; Z91.81 History of falling; I10 Essential (primary) hypertension; I45.10 Unspecified right bundle-branch block; I47.20 Ventricular tachycardia, unspecified; I48.91 Unspecified atrial fibrillation; F31.9 Bipolar disorder, unspecified; Z79.01 Long term (current) use of anticoagulants; Z88.0 Allergy status to penicillin; Z88.1 Allergy status to other antibiotic agents; Z88.2 Allergy status to sulfonamides; Z88.5 Allergy status to narcotic agent
CPT/HCPCS: 25607; 64721; A4649; C1713; J0131; J0665; J0736; J1100; J2250; J2405; J2704

== ENCOUNTER → 2024-05-11 08:15 | Outpatient (BNV) | payer MEDICARE, SELFPAY | PROVIDERS: PCP Family Medicine; Visit Provider Orthopaedic Surgery | DX: S52.552A Other extraarticular fracture of lower end of left radius, initial encounter for closed fracture (principal); G56.02 Carpal tunnel syndrome, left upper limb | CPT/HCPCS: 25607 ==

== ENCOUNTER 2024-05-19 08:51 | Outpatient (REF) | payer MEDICARE, SELFPAY | END 2024-05-19 08:52 | disposition home or self-care (01) | LOC: HO.HOSX 08:51 | PROVIDERS: Visit Provider Orthopaedic Surgery | DX: Z13.89 Encounter for screening for other disorder (principal) ==

== ENCOUNTER 2024-05-20 12:22 | Outpatient (AMB) | payer MEDICARE, SELFPAY ==
--- NOTE | 2024-05-20 12:40 | MHC.OFFVIS ---
Vital Signs 05/20/24 13:15 Height 5 ft 8 in Weight 173 lb BMI 26.3 Intake Visit Reasons: PO LT distal radius ORIF/CTR 05/11/24 AR Intake Note: Kerri is a 73 yo left hand dominant female who presents today post operatively s/p left distal radius ORIF and CTR done 05/11/[address] Miles. Patient reports soreness around the stitches. Denies new numbness or tingling. Bandage was wet during intake, however, patient reports she has kept her bandage dried. Allergies ciprofloxacin [From Cipro] Allergy (Severe, Verified 05/20/24 13:23) Anaphylaxis Iodine and Iodide Containing Produc [IODINE AND IODIDE CONTAINING PRODUC] Allergy (Severe, Verified 05/20/24 13:23) Anaphylaxis morphine Allergy (Severe, Verified 05/20/24 13:23) Anaphylaxis prednisone Allergy (Severe, Verified 05/20/24 13:23) confusion shellfish derived [SHELLFISH DERIVED] Allergy (Severe, Verified 05/20/24 13:23) Anaphylaxis Sulfa (Sulfonamide Antibiotics) Allergy (Severe, Verified 05/20/24 13:23) UNKNOWN Tetracyclines Allergy (Severe, Verified 05/20/24 13:23) Anaphylaxis vancomycin Allergy (Severe, Verified 05/20/24 13:23) Anaphylaxis Antibiotic Allergy (Unknown, Verified 05/20/24 13:23) Anaphylaxis codeine [Codeine] Allergy (Unknown, Verified 05/20/24 13:23) UNKNOWN cortisone [Cortisone] Allergy (Unknown, Verified 05/20/24 13:23) UNKNOWN fexofenadine [Abimbola] Allergy (Unknown, Verified 05/20/24 13:23) Unknown loratadine [Claritin] Allergy (Unknown, Verified 05/20/24 13:23) Unknown latex Allergy (Verified 05/20/24 13:23) Rash From Cipro Allergy (Severe, Uncoded 05/20/24 13:23) Anaphylaxis From Keflex Allergy (Severe, Uncoded 05/20/24 13:23) Anaphylaxis Codeine Sulfate Allergy (Unknown, Uncoded 05/20/24 13:23) Anaphylaxis DIURETICS Allergy (Unknown, Uncoded 05/20/24 13:23) UNKNOWN HPI HPI PO LT distal radius ORIF/CTR 05/11/24 AR: Details: Kerri is a 73 year old left hand dominant woman who returns S/P left distal radius ORIF & carpal tunnel release, DOS: 05/11/24. S/P fall, DOI: 05/03/24. She has a Hx of chronic vertigo, and this causes her to fall somewhat frequently. She reports keeping her dressing clean & dry, but her bandage was somewhat wet when removed today in clinic. She says she is doing well overall, with some mild soreness about her incisions. She says her sensation is improved and now normal in the median nerve distribution. She continues to have dense numbness in her small finger. She says she writes & draws at home. She currently lives with her best friend while she is in the process of a divorce, which she finds very stressful. She has a hx of Afib & Bipolar, she is on Eliquis. She follows with with a Operations Support Analyst in [place]. She reports having several allergies to medications, including penicillins, Keflex, & ciprofloxacin, as well as morphine and Prednisone. She says she is able to take Bactrim & Doxycycline. She is unsure of a reaction to Clindamycin. 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 Sutures removed and Steri-Strips applied She can bring her fingers closed to a fist and back into extension Wrist ROM: Pronation: ~60 degrees Supination: ~60 degrees Some resolving swelling & ecchymosis Good elbow ROM Sensation is normal in the median nerve distribution. Dense numbness in the small finger Cap refill is brisk Radiographs: 3 views of the left wrist, plus a scaphoid view, were taken and viewed by me today in clinic. They show a distal radius fracture, with satisfactory fracture alignment and position of all implants. Psych Appearance: grossly normal Affect: normal affect Attitude: cooperative Assessment & Plan Assessment & Plan (1) Closed fracture of left distal radius: Code(s): S52.502A - Unspecified fracture of the lower end of left radius, initial encounter for closed fracture Category: Medical (2) Numbness of left hand: Code(s): R20.0 - Anesthesia of skin Category: Medical (3) Atrial fibrillation: Code(s): I48.91 - Unspecified atrial fibrillation Category: Medical Qualifiers: Atrial fibrillation type: unspecified Qualified Code(s): I48.91 - Unspecified atrial fibrillation (4) Bipolar disorder: Code(s): F31.9 - Bipolar disorder, unspecified Category: Medical Plan Assessment & Plan: 1. Left comminuted distal radius fracture, S/P ORIF DOS: 05/11/24 From a fall, DOI: 05/03/24 2. Left hand numbness, S/P carpal tunnel release DOS: 05/11/24 DOI: 05/03/24 Now with normal sensation in the median nerve distribution 3. Persistent numbness in the left small finger Still with dense numbness in the ulnar nerve distribution, not present prior to her injury We will follow to see if there is improvement. If not, I may order a nerve conduction study. The patient appears to be doing well post-operatively I educated her about the post-operative course I explained the signs and symptoms of infection, if the patient develops any new or worsening erythema, drainage, pain, or warmth they should contact the clinic or attend the ED. She was placed in a short arm cast to be worn for the next 2 weeks I discussed activity modifications, she is to lift nothing heavier than a cellphone for the next 4 weeks She will perform gentle ROM exercises at home, including pronosupination She should avoid any underwater activities at this time She will follow up in 2 weeks, with X-rays, 3V L wrist OOP Scribed for Afshan Miles MD by Dylon Gerard, medical assistant cardiology, on 05/20/24 at 1:35 PM, EST. Orders: Orders XR wrist LT min 3V 05/19/24 M25.532 - Pain in left wrist XR wrist LT min 3V Today M25.532 - Pain in left wrist Scribe Plan - Not visible on output: Scribed for Afshan Miles MD by Dylon Gerard medical assistant cardiology, on [ ] at [ ], EST. Coding Level of Care Code Global (42393) Diagnoses Closed fracture of left distal radius S52.502A Numbness of left hand R20.0 Atrial fibrillation I48.91 Atrial fibrillation type: unspecified Bipolar disorder F31.9
[2024-05-20 13:15] VITALS: BMI 26.3
== END 2024-05-20 14:25 | disposition home or self-care (01) ==
LOC: HO.HOS 12:22
PROVIDERS: PCP Family Medicine; Visit Provider Orthopaedic Surgery
DX: S52.502A Unspecified fracture of the lower end of left radius, initial encounter for closed fracture (principal); R20.0 Anesthesia of skin; I48.91 Unspecified atrial fibrillation; F31.9 Bipolar disorder, unspecified
CPT/HCPCS: 99024

== ENCOUNTER 2024-05-20 12:36 | Outpatient (REF) | payer MEDICARE, SELFPAY ==
--- NOTE | ~2024-05-20 | XR_ITS ---
EXAMINATION: XR WRIST, LEFT CLINICAL INFORMATION: Left wrist pain. Fracture. COMPARISON: Left wrist radiographs dated 05/03/2024. TECHNIQUE: PA, lateral, and oblique views of the left wrist. FINDINGS: Volar stabilization plate and fixation screws at the distal radius with interval improvement in anatomic alignment of the previously seen distal radial fracture. Mild new bone/callus formation. Corticated ossification adjacent to the ulnar styloid, unchanged and likely representing an accessory ossicle. No new fracture or dislocation. Osteoarthritis redemonstrated at the triscaphe and 1st carpometacarpal joints. Mild circumferential soft tissue swelling. XR/XR wrist LT min 3V IMPRESSION: 1. Distal radial ORIF with improvement in anatomic alignment and mild new bone/callus formation. 2. Unchanged osteoarthritis at the triscaphe and 1st carpometacarpal joints. Electronically signed by: Sha Burden MD 06/04/2024 08:57 PM EDT
== END 2024-05-20 12:37 | disposition home or self-care (01) ==
LOC: HO.HOSX 12:36
PROVIDERS: Visit Provider Orthopaedic Surgery
DX: M25.532 Pain in left wrist (principal); S52.502D Unspecified fracture of the lower end of left radius, subsequent encounter for closed fracture with routine healing; R20.0 Anesthesia of skin; X58.XXXD Exposure to other specified factors, subsequent encounter; Z98.890 Other specified postprocedural states
CPT/HCPCS: 73110; 99212

== ENCOUNTER 2024-06-05 | Outpatient (REF) | payer MEDICARE, SELFPAY | END 2024-06-05 00:01 | disposition home or self-care (01) | LOC: CF | DX: S52.502D Unspecified fracture of the lower end of left radius, subsequent encounter for closed fracture with routine healing (principal); R20.0 Anesthesia of skin | CPT/HCPCS: 29125; 99212 ==

== ENCOUNTER 2024-06-05 11:54 | Outpatient (REF) | payer MEDICARE, SELFPAY ==
--- NOTE | ~2024-06-05 | XR_ITS ---
EXAMINATION: XR WRIST, LEFT CLINICAL INFORMATION: M25.532 - Pain in left wrist COMPARISON: 05/20/2024. TECHNIQUE: PA, lateral, and oblique views of the left wrist. FINDINGS: Volar stabilization plate and fixation screws at the distal radius with stable anatomic alignment of the previously seen distal radial fracture. Similar degree of new bone/callus formation. Corticated ossification adjacent to the ulnar styloid, unchanged and likely representing an accessory ossicle. No new fracture or dislocation. Mild osteoarthritis redemonstrated first CMC and STT joints. Mild circumferential soft tissue swelling. XR/XR wrist LT w scaphoid IMPRESSION: 1. Distal radial ORIF with stable anatomic alignment , and stable appearance of the fracture margins. 2. 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 Electronically signed by: Roman Estrada MD 08/16/2024 10:13 PM [facility]
== END 2024-06-05 11:55 | disposition home or self-care (01) ==
LOC: HO.XRAY 11:54
PROVIDERS: Visit Provider Orthopaedic Surgery
DX: M25.532 Pain in left wrist (principal)
CPT/HCPCS: 73110

== ENCOUNTER → 2024-06-05 12:03 | Outpatient (BNV) | payer MEDICARE, SELFPAY | PROVIDERS: Visit Provider Radiology Diagnostic Radiology | DX: M25.532 Pain in left wrist (principal) | CPT/HCPCS: 73110 ==

== ENCOUNTER 2024-06-05 12:33 | Outpatient (AMB) | payer MEDICARE, SELFPAY ==
--- NOTE | 2024-06-05 12:59 | A.OFFVIS_ITS ---
Vital Signs 06/05/24 13:02 Height 5 ft 8 in Weight 173 lb BMI 26.3 Handedness Left Intake Visit Reasons: PO-LT distal radius ORIF/CTR 05/11/24 AR Intake Note: Kerri is a 73 year old left hand dominant female who presents today post operatively s/p left distal radius ORIF and CTR DOS: 05/11/[address] Miles. Patient reports she is having continued pain and swelling in the left wrist on the dorsal aspect. When she attempts to bring her fingers down to make a fist it sends pain down her left wrist. She is taking extra strength Tylenol but this is offering no relief. Reports tingling in her left 5th digit. Allergies ciprofloxacin [From Cipro] Allergy (Severe, Verified 06/05/24 13:03) Anaphylaxis Iodine and Iodide Containing Produc [IODINE AND IODIDE CONTAINING PRODUC] Allergy (Severe, Verified 06/05/24 13:03) Anaphylaxis morphine Allergy (Severe, Verified 06/05/24 13:03) Anaphylaxis prednisone Allergy (Severe, Verified 06/05/24 13:03) confusion shellfish derived [SHELLFISH DERIVED] Allergy (Severe, Verified 06/05/24 13:03) Anaphylaxis Sulfa (Sulfonamide Antibiotics) Allergy (Severe, Verified 06/05/24 13:03) UNKNOWN Tetracyclines Allergy (Severe, Verified 06/05/24 13:03) Anaphylaxis vancomycin Allergy (Severe, Verified 06/05/24 13:03) Anaphylaxis Antibiotic Allergy (Unknown, Verified 06/05/24 13:03) Anaphylaxis codeine [Codeine] Allergy (Unknown, Verified 06/05/24 13:03) UNKNOWN cortisone [Cortisone] Allergy (Unknown, Verified 06/05/24 13:03) UNKNOWN fexofenadine [Abimbola] Allergy (Unknown, Verified 06/05/24 13:03) Unknown loratadine [Claritin] Allergy (Unknown, Verified 06/05/24 13:03) Unknown latex Allergy (Verified 06/05/24 13:03) Rash From Cipro Allergy (Severe, Uncoded 06/05/24 13:03) Anaphylaxis From Keflex Allergy (Severe, Uncoded 06/05/24 13:03) Anaphylaxis Codeine Sulfate Allergy (Unknown, Uncoded 06/05/24 13:03) Anaphylaxis DIURETICS Allergy (Unknown, Uncoded 06/05/24 13:03) UNKNOWN HPI HPI PO-LT distal radius ORIF/CTR 05/11/24 AR: Details: Patient is a 73-year-old female who presents for postoperative evaluation of left distal radius ORIF and left carpal tunnel release, DOS 05/11/2024. Today, the patient reports that she is feeling all right, but states she is still experiencing significant discomfort in her left wrist, particularly on the dorsal aspect. Patient also reports that she is still experiencing swelling in her left wrist as well. The patient denies any numbness or tingling remaining in the left wrist. No other acute complaints or concerns at this time. 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 Neuro: Normal sensation of the tips of all digits of the L hand at this time Vascular: Cap refill brisk Pain: Diffuse Tenderness to palpation of the L wrist ROM: Patient is able to get close to making a closed fist at this time Skin: Well-healing incision sites noted on both the dorsal and volar aspects of the left wrist General: Significant edema and old ecchymosis noted circumferentially about the left wrist No erythema or evidence of infection Psych: Appears grossly normal Affect normal Attitude cooperative Office Procedures Casting/Splints [id number] Splint Application Procedure code (CPT) selection complete Results Reviewed Results Reviewed: X-rays obtained in the office today and independently reviewed by , Ed Rothman PA-C, demonstrate fracture of the left distal radius with orthopedic hardware in place in satisfactory clinical alignment. Assessment & Plan Assessment & Plan (1) Closed fracture of left distal radius: Code(s): S52.502A - Unspecified fracture of the lower end of left radius, initial encounter for closed fracture Category: Medical (2) Numbness of left hand: Code(s): R20.0 - Anesthesia of skin Category: Medical (3) Atrial fibrillation: Code(s): I48.91 - Unspecified atrial fibrillation Category: Medical Qualifiers: Atrial fibrillation type: unspecified Qualified Code(s): I48.91 - Unspecified atrial fibrillation (4) Bipolar disorder: Code(s): F31.9 - Bipolar disorder, unspecified Category: Medical Plan Assessment & Plan: 1. Left comminuted distal radius fracture, S/P ORIF DOS: 05/11/24 From a fall, DOI: 05/03/24 2. Left hand numbness, S/P carpal tunnel release DOS: 05/11/24 DOI: 05/03/24 Now with normal sensation in the median nerve distribution The patient appears to be doing well post-operatively I educated her about the post-operative course I explained the signs and symptoms of infection, if the patient develops any new or worsening erythema, drainage, pain, or warmth they should contact the clinic or attend the ED. Due to the patient's swelling in the office today, I placed the patient in a short-arm splint to allow for increases and reductions and swelling without the risks of being in the cast. I discussed activity modifications, she is to lift nothing heavier than a cellphone for the next 4 weeks Patient will follow-up in 1 week with repeat x-rays with Dr. Miles, sooner if any acute concerns Scribed for Afshan Miles MD by Dylon Gerard, certified court/medical interpreter, on 05/20/24 at 1:35 PM, EST. Orders: Orders XR wrist LT w scaphoid 06/05/24 M25.532 - Pain in left wrist Coding Level of Care Code Global (56512) Diagnoses Closed fracture of left distal radius S52.502A Numbness of left hand R20.0 Atrial fibrillation I48.91 Atrial fibrillation type: unspecified Bipolar disorder F31.9 CPT Codes Splint - CPT: 81311-[id number] Splint Application ([id number])
[2024-06-05 13:02] VITALS: BMI 26.3
== END 2024-06-05 13:57 | disposition home or self-care (01) ==
PROVIDERS: PCP Family Medicine
DX: S52.502A Unspecified fracture of the lower end of left radius, initial encounter for closed fracture (principal); R20.0 Anesthesia of skin; I48.91 Unspecified atrial fibrillation; F31.9 Bipolar disorder, unspecified
CPT/HCPCS: 29125; 99024

== ENCOUNTER 2024-06-10 08:30 | Outpatient (REF) | payer MEDICARE, SELFPAY ==
--- NOTE | ~2024-06-10 | XR_ITS ---
EXAMINATION: XR WRIST, LEFT CLINICAL INFORMATION: M25.532 - Pain in left wrist COMPARISON: None available. TECHNIQUE: PA, lateral, and oblique views of the left wrist. FINDINGS: Volar stabilization plate and fixation screws at the distal radius with stable anatomic alignment of the previously seen distal radial fracture. Similar degree of new bone/callus formation. More complete healing of the fracture lines. Corticated ossification adjacent to the ulnar styloid, unchanged and likely representing an accessory ossicle. No new fracture or dislocation. Mild osteoarthritis redemonstrated first CMC and STT joints. Mild circumferential soft tissue swelling. XR/XR wrist LT min 3V IMPRESSION: 1. Distal radial ORIF with stable anatomic alignment , and further interval healing of the fracture margins. No complications. 2. 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 Electronically signed by: Roman Estrada MD 08/16/2024 10:15 PM [facility]
== END 2024-06-10 08:31 | disposition home or self-care (01) ==
LOC: HO.HOSX 08:30
PROVIDERS: Visit Provider Orthopaedic Surgery
DX: M25.532 Pain in left wrist (principal); S52.502A Unspecified fracture of the lower end of left radius, initial encounter for closed fracture; R20.0 Anesthesia of skin; I48.91 Unspecified atrial fibrillation; F31.9 Bipolar disorder, unspecified
CPT/HCPCS: 73110; 99212

== ENCOUNTER 2024-06-10 12:15 | Outpatient (AMB) | payer MEDICARE, SELFPAY ==
--- NOTE | 2024-06-10 12:41 | MHC.OFFVIS ---
Vital Signs 06/10/24 13:06 Height 5 ft 8 in Weight 173 lb BMI 26.3 Intake Visit Reasons: PO-LT distal radius ORIF/CTR 05/11/24 AR Intake Note: Kerri is a 73 year old left hand dominant female who presents today post operatively s/p left distal radius ORIF and CTR DOS: 05/11/[address] Miles. Patient reports on going left small finger numbness as well as generalized pain on the volar aspect of the left wrist. She is taking Tylenol PRN with some relief. Allergies ciprofloxacin [From Cipro] Allergy (Severe, Verified 06/10/24 13:05) Anaphylaxis Iodine and Iodide Containing Produc [IODINE AND IODIDE CONTAINING PRODUC] Allergy (Severe, Verified 06/10/24 13:05) Anaphylaxis morphine Allergy (Severe, Verified 06/10/24 13:05) Anaphylaxis prednisone Allergy (Severe, Verified 06/10/24 13:05) confusion shellfish derived [SHELLFISH DERIVED] Allergy (Severe, Verified 06/10/24 13:05) Anaphylaxis Sulfa (Sulfonamide Antibiotics) Allergy (Severe, Verified 06/10/24 13:05) UNKNOWN Tetracyclines Allergy (Severe, Verified 06/10/24 13:05) Anaphylaxis vancomycin Allergy (Severe, Verified 06/10/24 13:05) Anaphylaxis Antibiotic Allergy (Unknown, Verified 06/10/24 13:05) Anaphylaxis codeine [Codeine] Allergy (Unknown, Verified 06/10/24 13:05) UNKNOWN cortisone [Cortisone] Allergy (Unknown, Verified 06/10/24 13:05) UNKNOWN fexofenadine [Abimbola] Allergy (Unknown, Verified 06/10/24 13:05) Unknown loratadine [Claritin] Allergy (Unknown, Verified 06/10/24 13:05) Unknown latex Allergy (Verified 06/10/24 13:05) Rash From Cipro Allergy (Severe, Uncoded 06/10/24 13:05) Anaphylaxis From Keflex Allergy (Severe, Uncoded 06/10/24 13:05) Anaphylaxis Codeine Sulfate Allergy (Unknown, Uncoded 06/10/24 13:05) Anaphylaxis DIURETICS Allergy (Unknown, Uncoded 06/10/24 13:05) UNKNOWN HPI HPI PO-LT distal radius ORIF/CTR 05/11/24 AR: Details: Kerri is a 73 year old left hand dominant woman who returns S/P left distal radius ORIF & carpal tunnel release, DOS: 05/11/24. S/P fall, DOI: 05/03/24. She has a Hx of chronic vertigo, and this causes her to fall somewhat frequently. Her cast was removed today for radiographs. She says she is doing well overall, with some mild soreness and pain in her wrist. She has been working on ROM exercises at home, which she has found helpful. She says her sensation is normal in the median nerve distribution. She continues to have dense numbness in her small finger. She says she writes & draws at home. She currently lives with her best friend while she is in the process of a divorce, which she finds very stressful. She says she relies on her friend for rides to her appointments, and her friend is going on vacation for 2 weeks soon. She has a hx of Afib & Bipolar, she is on Eliquis. She follows with with a Nuclear Equipment Test Engineer in [place]. She reports having several allergies to medications, including penicillins, Keflex, & ciprofloxacin, as well as morphine and Prednisone. She says she is able to take Bactrim & Doxycycline. She is unsure of a reaction to Clindamycin. 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 Dense numbness in the small finger, particularly the tip & pad of the finger. Normal sensation to the ulnar half of the ring finger. She says his sensation is better on the radial half of the small finger than the central pad and ulnar half of the small finger. Vascular: Cap refill brisk ROM: She can bring her fingers closed to a fist and back into extension She has some tight finger extensors Wrist ROM: Pronation: ~65 degrees Supination: ~65-70 degrees Flexion: ~20 degrees Extension: ~20 degrees We worked on some exercises today in clinic for her to perform at home to help improve wrist flexion and extension Resolved swelling & ecchymosis Good elbow ROM Radiographs: 3 views of the left wrist, plus a scaphoid view, were taken and viewed by me today in clinic. They show a distal radius fracture, with satisfactory fracture alignment and position of all implants. Psych Appearance: grossly normal Affect: normal affect Attitude: cooperative Assessment & Plan Assessment & Plan (1) Closed fracture of left distal radius: Code(s): S52.502A - Unspecified fracture of the lower end of left radius, initial encounter for closed fracture Category: Medical (2) Numbness of left hand: Code(s): R20.0 - Anesthesia of skin Category: Medical (3) Atrial fibrillation: Code(s): I48.91 - Unspecified atrial fibrillation Category: Medical Qualifiers: Atrial fibrillation type: unspecified Qualified Code(s): I48.91 - Unspecified atrial fibrillation (4) Bipolar disorder: Code(s): F31.9 - Bipolar disorder, unspecified Category: Medical Plan Assessment & Plan: 1. Left comminuted distal radius fracture, S/P ORIF DOS: 05/11/24 From a fall, DOI: 05/03/24 2. Left hand numbness, S/P carpal tunnel release DOS: 05/11/24 DOI: 05/03/24 Now with normal sensation in the median nerve distribution 3. Persistent numbness in the left small finger Still with dense numbness in the ulnar nerve distribution, not present prior to her injury We will follow to see if there is improvement. If not, I may order a nerve conduction study. The patient appears to be doing well post-operatively I educated her about the post-operative course She was fitted for a velcro wrist splint, to be worn when out of the house or with daily activities. She will remove this when at home at rest, or to work on ROM. Of note, she has Vertigo and is prone to falls, she should have her splint on when standing from a seated position, in case of falls. I discussed activity modifications, she is to begin using her hand for lightweight activities. She should avoid any impact activities or falls at this time. She can begin to slowly work up her weight limit as tolerated over the next 4 weeks. She will perform gentle ROM exercises at home, including pronosupination I ordered OT hand therapy to work on ROM exercises. She says she is reliant on her friend giving her rides to her appointments, and she is going on vacation for two weeks. I explained she should be seen by OT soon and given exercises she can perform at home until she is able to attend appointments. She will follow up in 4-5 weeks for a ROM check. No X-rays unless she has a new injury. Scribed for Afshan Miles MD by Dylon Gerard ophthalmic medical technician, on 06/10/24 at 1:15 PM, EST. Orders: Orders OT Evaluation and Treatment Today F31.9 - Bipolar disorder, unspecified, S52.502A - Unspecified fracture of the lower end of left radius, initial encounter for closed fracture XR wrist LT min 3V Today M25.532 - Pain in left wrist Scribe Plan - Not visible on output: Scribed for Afshan Miles MD by Dylon Gerard ophthalmic medical technician, on [ ] at [ ], EST. Coding Level of Care Code Global (70436) Diagnoses Closed fracture of left distal radius S52.502A Numbness of left hand R20.0 Atrial fibrillation I48.91 Atrial fibrillation type: unspecified Bipolar disorder F31.9
[2024-06-10 13:06] VITALS: BMI 26.3
== END 2024-06-10 13:28 | disposition home or self-care (01) ==
PROVIDERS: PCP Family Medicine; Visit Provider Orthopaedic Surgery
DX: S52.502A Unspecified fracture of the lower end of left radius, initial encounter for closed fracture (principal); R20.0 Anesthesia of skin; I48.91 Unspecified atrial fibrillation; F31.9 Bipolar disorder, unspecified
CPT/HCPCS: 99024

== ENCOUNTER → 2024-06-10 12:34 | Outpatient (BNV) | payer MEDICARE, SELFPAY | PROVIDERS: Visit Provider Radiology Diagnostic Radiology | DX: M25.532 Pain in left wrist (principal); M18.12 Unilateral primary osteoarthritis of first carpometacarpal joint, left hand; S52.502D Unspecified fracture of the lower end of left radius, subsequent encounter for closed fracture with routine healing | CPT/HCPCS: 73110 ==

== ENCOUNTER 2024-09-30 14:47 | Emergency (ER) | payer MEDICARE, SELFPAY ==
[2024-09-30 15:31] VITALS: BP 210/79; PULSE 62; RESP 20; TEMP 37.7; O2SAT 98; BMI 25.1
--- NOTE | 2024-09-30 15:35 | ED_ITS ---
HPI - General Adult General Chief complaint: General Medical Stated complaint: Sinus Infection High Blood Pressure Related Data Home Medications ?Medication ?Instructions ?Recorded ?Confirmed Trileptal 150 mg PO BID@1999,0000 10/07/22 05/23/23 diazepam 10 mg tablet 30 - 50 mg PO DAILY@0000 PRN 10/07/22 05/23/23 Anxiety divalproex 125 mg tablet,delayed 2 tab PO DAILY 10/07/22 05/23/23 release topiramate 100 mg tablet 2 tab PO BID@1999,0000 10/07/22 05/23/23 aspirin 81 mg tablet,delayed 81 mg PO DAILY 01/28/23 05/23/23 release (Adult Aspirin Regimen) amlodipine 5 mg tablet 5 mg PO DAILY 05/23/23 05/23/23 ascorbic acid (vitamin C) 500 mg 500 mg PO DAILY 05/23/23 05/23/23 tablet atenolol 50 mg tablet 50 mg PO BID 05/23/23 05/23/23 multivitamin 1 tab PO DAILY 05/23/23 05/23/23 zolpidem 10 mg tablet 20 mg PO DAILY@0000 PRN Insomnia 05/23/23 05/23/23 losartan 50 mg tablet 50 mg PO BID 08/16/23 flecainide 50 mg tablet 50 mg PO BID 05/11/24 05/11/24 Previous Rx's ?Medication ?Instructions ?Recorded apixaban 5 mg (74 tabs) tablets in 5 mg PO Q12H #74 ea 11/14/23 a dose pack (Rentables DVT-PE Treat 30D Start) Allergies Allergy/AdvReac Type Severity Reaction Status Date / Time ciprofloxacin [From Cipro] Allergy Severe Anaphylaxis Verified 09/30/24 15:38 Iodine and Iodide Containing Allergy Severe Anaphylaxis Verified 09/30/24 15:38 Produc [IODINE AND IODIDE CONTAINING PRODUC] morphine Allergy Severe Anaphylaxis Verified 09/30/24 15:38 prednisone Allergy Severe confusion Verified 09/30/24 15:38 shellfish derived Allergy Severe Anaphylaxis Verified 09/30/24 15:38 [SHELLFISH DERIVED] Sulfa (Sulfonamide Allergy Severe UNKNOWN Verified 09/30/24 15:38 Antibiotics) Tetracyclines Allergy Severe Anaphylaxis Verified 09/30/24 15:38 vancomycin Allergy Severe Anaphylaxis Verified 09/30/24 15:38 Antibiotic Allergy Unknown Anaphylaxis Verified 09/30/24 15:38 codeine [Codeine] Allergy Unknown UNKNOWN Verified 09/30/24 15:38 cortisone [Cortisone] Allergy Unknown UNKNOWN Verified 09/30/24 15:38 fexofenadine [Abimbola] Allergy Unknown Unknown Verified 09/30/24 15:38 loratadine [Claritin] Allergy Unknown Unknown Verified 09/30/24 15:38 latex Allergy Rash Verified 09/30/24 15:38 From Cipro Allergy Severe Anaphylaxis Uncoded 06/10/24 13:05 From Keflex Allergy Severe Anaphylaxis Uncoded 06/10/24 13:05 Codeine Sulfate Allergy Unknown Anaphylaxis Uncoded 06/10/24 13:05 DIURETICS Allergy Unknown UNKNOWN Uncoded 06/10/24 13:05 PMF Past Medical History Medical History Right bundle branch block Radiculopathy of leg Bipolar disorder Ventricular tachyarrhythmia HTN (hypertension), benign Surgical History History of cardiac radiofrequency ablation Social History Social History Alcohol intake: current Alcohol intake frequency: does not drink Alcohol type: other Patient Tobacco Use Status: Former Tobacco user Substance Use Type: Marijuana Advance Directives: Yes Advance Directives on File: Yes Advance Directives Date on File: 09/05/22 Do you have a plan to hurt others: No Plan 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 She reports that she was recently diagnosed with the flu. She spoke to her right of way clearer and her PCP. Her PCP wants her on bactrim regular strength BID x 15 days and a STAT ekg faxed to his office. In triage, her BP is 210/79. The patient states tjat she does not want that addressed today and will see her PCP and right of way clearer ofr it. Plan for labs and EKG Medical Decision Making Lab Data 09/30/24 17:04 09/30/24 17:04 Labs: Lab Results 01/15/25 Range/Units 17:04 WBC 7.7 (4.8-10.8) X10*3/uL RBC 4.35 (4.20-5.50) X10*6/uL Hgb 13.4 (12.0-16.0) g/dl Hct 40.3 (37.0-47.0) % MCV 92.6 (80.0-98.0) fL MCH 30.8 (27.0-33.0) pg MCHC 33.3 (31.0-35.0) g/dl RDW 13.4 (11.0-16.0) % Plt Count 186 D (160-400) X10*3/uL MPV 9.2 L (9.4-12.3) fL Immature Gran % (Auto) 0.9 H (0.0-0.4) % Neut % (Auto) 61.0 (45-73) % Lymph % (Auto) 23.7 (20-40) % [place] % (Auto) 7.8 (2-11) % Eos % (Auto) 5.9 H (0-4) % Baso % (Auto) 0.7 (0-2) % Lymph # (Auto) 1.8 (1.2-4.9) X10*3/uL [place] # (Auto) 0.6 (0.1-1.2) X10*3/uL Eos # (Auto) 0.5 H (0.0-0.4) X10*3/uL Baso # (Auto) 0.1 (0.0-0.2) X10*3/uL Abs Immat Gran (auto) 0.07 H (0.00-0.03) X10*3/uL Absolute Neuts (auto) 4.7 (2.0-8.3) x10*3/uL Absolute Nucleated RBC 0.000 (0.0-0.012) X10*3/uL Nucleated RBC % (auto) 0.0 (0.0-0.2) /100WBC PT 11.8 (10.9-12.4) SEC INR 1.0 (0.9-1.1) Sodium 136 (135-145) mmol/L Potassium 4.1 (3.3-5.1) mmol/L Chloride 108 (96-108) mmol/L Carbon Dioxide 24 (22-29) mmol/L Anion Gap 8 L (12-20) BUN 16 (9-16) mg/dL Creatinine 0.75 (0.5-1.4) mg/dL Estim Creat Clear Calc 68.3 Estimated GFR > 60 Random Glucose 103 (60-115) mg/dL Calcium 8.6 (8.4-10.2) mg/dL Total Bilirubin 0.6 (0.0-1.0) mg/dL AST 24 (5-31) U/L ALT 15 (0-31) U/L Alkaline Phosphatase 109 (39-117) U/L Troponin I High Sens 3.3 (<3.5-17.0) ng/L Total Protein 6.8 (6.5-8.0) g/dL Albumin 4.2 (3.5-5.0) g/dL Lipase 44 (8-78) U/L Influenza Type A (PCR) NEGATIVE (Negative) Influenza Type B (PCR) NEGATIVE (Negative) RSV RNA Qual (PCR) NEGATIVE (Negative) SARS-CoV-2 RNA (RT-PCR) NEGATIVE (Negative) Discharge Plan Discharge Clinical Impression: Headache Patient Disposition: Left W/O Completing Treatment Prescriptions: No Action Trileptal 150 mg 150 mg PO BID@1999, Rx Instructions: brand name topiramate 100 mg tablet 2 tab PO BID@1999, divalproex 125 mg tablet,delayed release (DR/EC) 2 tab PO DAILY diazepam 10 mg tablet 30 - 50 mg PO DAILY@0000 PRN (Reason: Anxiety) Brooke DVT-PE Treat 30D Start 5 mg (74 tabs) tablets,dose pack 5 mg PO Q12H Qty: 74 0RF amlodipine 5 mg tablet 5 mg PO DAILY zolpidem 10 mg tablet 20 mg PO DAILY@0000 PRN (Reason: Insomnia) atenolol 50 mg tablet 50 mg PO BID multivitamin Tablet 1 tab PO DAILY ascorbic acid (vitamin C) 500 mg Tablet 500 mg PO DAILY flecainide 50 mg tablet 50 mg PO BID aspirin [Adult Aspirin Regimen] 81 mg tablet,delayed release (DR/EC) 81 mg PO DAILY losartan 50 mg tablet 50 mg PO BID Discharge Date/Time: 09/30/24 17:31
--- NOTE | 2024-09-30 15:36 | ECG_ITS ---
Test Reason : HTN Blood Pressure : */* mmHG Vent. Rate : 59 BPM Atrial Rate : 59 BPM P-R Int : 172 ms QRS Dur : 174 ms QT Int : 466 ms P-R-T Axes : 64 8 53 degrees QTcB Int : 461 ms Sinus bradycardia Right bundle branch block Abnormal ECG When compared with ECG of 27-Jan-2024 04:38, QRS duration has increased Referred By: Destin Jorge Electronically Signed By: Kaiden Valderrama
[2024-09-30 17:08] LABS: Basophils Absolute Auto 0.1 X10*3/uL (0.0-0.2); Basophils Percent Auto 0.7 % (0-2); Eosinophils Absolute Auto 0.5 X10*3/uL (0.0-0.4); Eosinophils Percent Auto 5.9 % (0-4); Hematocrit 40.3 % (37.0-47.0); Hemoglobin 13.4 g/dl (12.0-16.0); Imm Gran Abs Auto 0.07 X10*3/uL (0.00-0.03); Imm Gran Pct Auto 0.9 % (0.0-0.4); Lymphocytes Absolute Auto 1.8 X10*3/uL (1.2-4.9); Lymphocytes Percent Auto 23.7 % (20-40); MANUAL DIFF FLAG NO; Mean Corpuscular HGB Conc 33.3 g/dl (31.0-35.0); Mean Corpuscular Hemoglobin 30.8 pg (27.0-33.0); Mean Corpuscular Volume 92.6 fL (80.0-98.0); Mean Platelet Volume 9.2 fL (9.4-12.3); Monocytes Absolute Auto 0.6 X10*3/uL (0.1-1.2); Monocytes Percent Auto 7.8 % (2-11); Neutrophils Absolute Auto 4.7 x10*3/uL (2.0-8.3); Platelet Count 186 X10*3/uL (160-400); Red Blood Count 4.35 X10*6/uL (4.20-5.50); Red Cell Distribution Width 13.4 % (11.0-16.0); White Blood Count 7.7 X10*3/uL (4.8-10.8)
[2024-09-30 17:16] LABS: Prothrombin Time 11.8 SEC (10.9-12.4)
[2024-09-30 17:22] LABS: Alanine Aminotransferase 15 U/L (0-31); Albumin Level 4.2 g/dL (3.5-5.0); Alkaline Phosphatase 109 U/L (39-117); Anion Gap 8 (12-20); Aspartate Amino Transferase 24 U/L (5-31); Bilirubin Total 0.6 mg/dL (0.0-1.0); Blood Urea Nitrogen 16 mg/dL (9-16); Calcium 8.6 mg/dL (8.4-10.2); Carbon Dioxide 24 mmol/L (22-29); Chloride 108 mmol/L (96-108); Creatinine Clr Calc Pharmacy 68.3; Estimated Glomerular Filt Rate > 60; Glucose Random 103 mg/dL (60-115); Lipase 44 U/L (8-78); Potassium 4.1 mmol/L (3.3-5.1); Sodium 136 mmol/L (135-145); Total Protein 6.8 g/dL (6.5-8.0)
[2024-09-30 17:29] LABS: Troponin-I High Sensitivity 3.3 ng/L (<3.5-17.0)
[2024-09-30 17:49] LABS: Influenza A PCR NEGATIVE (Negative); Influenza B PCR NEGATIVE (Negative); Resp Syncy Virus RNA Qual PCR NEGATIVE (Negative); SARS COV2 PCR INHOUSE NEGATIVE (Negative)
== END 2024-09-30 17:31 | disposition left against medical advice (07) ==
PROVIDERS: Physician Assistant; Emergency Provider Emergency Medicine; PCP Family Medicine
DX: R51.9 Headache, unspecified (principal); I10 Essential (primary) hypertension; F12.90 Cannabis use, unspecified, uncomplicated; Z03.818 Encounter for observation for suspected exposure to other biological agents ruled out
CPT/HCPCS: 0241U; 36415; 80053; 83690; 84484; 85025; 85610; 93005; 99283

== ENCOUNTER → 2024-09-30 15:36 | Outpatient (BNV) | payer MEDICARE, SELFPAY | PROVIDERS: Emergency Provider Emergency Medicine; PCP Family Medicine; Visit Provider Internal Medicine Cardiovascular Disease | DX: R00.1 Bradycardia, unspecified (principal); R94.31 Abnormal electrocardiogram [ECG] [EKG]; I10 Essential (primary) hypertension | CPT/HCPCS: 93010 ==

== ENCOUNTER 2025-05-13 22:15 | Emergency (ER) | payer MEDICARE, SELFPAY ==
--- OUTSIDE RECORDS SUMMARY | 2022-12-31 16:03 | XMS_ITS | Encounter Summary ---
Author Organization [facility] Address [address] [place] [address] [place] [address] Phone Care Team Providers Care Sql Ssis Developer Name Role Phone Sangeeta Jarrett MD Unavailable [phone] Arnaldo Epps MD Unavailable Thais Mcdaniel MD, MPH Primary Care Provid er Thais Hylton MD Unavailable [phone] Roni Puente MD Unavailable [phone] Encounter Details Date Type Department Care Team (Late st Contact Info) Description 12/31/2022 4:03 PM EDT Hospital Encounter [facility] [address] [place] [address] Keke Mcmillan CNP [address] [place], [place] [id number] [email or web address] Social History Tobacco Use Types [...] Description 10/21/2025 2:00 PM EST Office Visit [facility] [address] [facility] [address] [place], [place] [id number] Binta Rodriguez MD 15 [facility] Jeff. [address] [place] [address] [email or web address] documented as of this encounter [...] report originally createdby Brunilda Strickland. Keke Mcmillan CONTINUOUS WASHER OPERATOR IMG XR LOWER EXTREMITY Adriana l Result documented in this encounter Visit Diagnoses Not on filedocumented in this encounter Additional Health Concerns Assessment Noted Time PHQ-2 Depression Total Score: 0 09/27/19 21 4:31 PM EST documented as of this encounter Care Teams Sql Ssis Developer Relationship Specialty Start Date End Date Thais Mcdaniel MD, MPH 15 [facility] 201 [place] [address] [email or web address] PCP - General Family Medicine 02/15/21 Sangeeta Jarrett MD [address] [place] [address] Gastroenterology 06/22/19 Arnaldo Epps MD [address] [place] [address] [email or web address] Psychiatry 02/15/21 Thais Hylton MD [address] [address] Dermatology 02/15/21 Roni Puente MD [address] [place] [address] [email or web address] Cardiology 07/24/21 documented as of this encounter Additional Source Comments The information contained in this document represents components of the legal health record. It is not the complete legal health record.[facility]
--- OUTSIDE RECORDS SUMMARY | 2023-07-31 01:00 | XMS_ITS | Encounter Summary ---
Author Organization [facility] Address [address] [facility] [address] [place] [phone] Phone Care Team Providers Care Marine Equipment Engineer Name Role Phone Sangeeta Jarrett MD Unavailable [phone] Arnaldo Epps MD Unavailable [phone] Thais Mcdaniel MD, MPH Primary Care Provid er Thais Hylton MD Unavailable Roni Puente MD Unavailable [phone] Encounter Details Date Type Department Care Team (Late st Contact Info) Description 07/31/2023 Hospital Encounter [facility] [address] [place] [address] Kenneth Donohue MD [address] [place] [address]-[place] [address] [email or web address] Social History Tobacco Use Types Packs/Day Years [...] Description 10/21/2025 2:00 PM EST Office Visit [facility] [place] [facility] [address] [facility] [address] [place] [address] Binta Rodriguez MD 15 [facility]. 201 [place] [address] [email or web address] documented as of this encounter Procedures Procedure Name Priority Date/Time Associated Diagnosis Comments CT FACE OUTSIDE (NO INTERPRETATION) Routine 07/31/2023 12:00 AM EST documented in this encounter Results * CT Face Outside (No Interpretation) (07/31/2023 12:00 AM EST) Narrative [facility] INTERFAC[facility] - 08/23/2023 2:11 PM EST This study is for PACS storage only and not for interpretation. us Kenneth Donohue MD IMG OUTSIDE IMAGING W /OUT INTERPRETATION Final Result [facility] documented in this encounter Visit Diagnoses Not on filedocumented in this encounter Additional Health Concerns Assessment Noted Time PHQ-2 Depression Total Score: 0 09/27/19 21 4:31 PM EST documented as of this encounter Care Teams Marine Equipment Engineer Relationship Specialty Start Date End Date Thais Mcdaniel MD, MPH [address] [facility]. [address] [place] [address] [email or web address] PCP - General Family Medicine 02/15/21 Sangeeta Jarrett MD [address] [place] [address] Gastroenterology 06/22/19 Arnaldo Epps MD [address] [place] [address] [email or web address] Psychiatry 02/15/21 Thais Hylton MD [address] [address] Dermatology 02/15/21 Roni Puente MD [address], [place] [address] [email or web address] Cardiology 07/24/21 documented as of this encounter Additional Source Comments The information contained in this document represents components of the legal health record. It is not the complete legal health record.[facility]
[2025-05-13 22:24] VITALS: BP 159/63; PULSE 51; RESP 16; TEMP 36.7; O2SAT 97
[2025-05-13 22:25] VITALS: BP 161/63; PULSE 50; O2SAT 97; BMI 22.1
--- OUTSIDE RECORDS SUMMARY | 2025-05-13 22:48 | XMS_ITS | Encounter Summary ---
Author Organization [facility] Address [address] [place] [address] Phone Care Team Providers Care Training Development Manager Name Role Phone Sangeeta Jarrett MD Unavailable [phone] Arnaldo Epps MD Unavailable Thais Mcdaniel MD, MPH Primary Care Provid er Thais Hylton MD Unavailable [phone] Roni Puente MD Unavailable Thais Mcdaniel MD, MPH Unavailable [phone]- [phone] Reason for Visit * Reason Onset Date Comments RED CALL high BP 09/30/2024 Encounter Details Date Type Department Care Team (Late st Contact Info) Description 09/30/2024 Nurse Triage [facility] Primary Care [address] [place] [address] Thais Mcdaniel MD, MPH [address] [place] [address] [email or web address] RED CALL high BP Social History Tobacco Use Types Packs/Day Years [...] PM EDT documented as of this encounter Progress Notes * Tanya Conley LPN - 09/30/2024 1:19 PM EST S/W Kerri. She has had flu, cough, congestion over the last few weeks. She feels she may now have a sinus infection. Her BP today is 190's/90's. She has extensive cardiac history and always is dizzy or weak with vertigo symptoms. She has no acute chest pain or SOB. She reports that she talked to hercardiologist in [place] and they told her to come to her PCP's office for an EKG. Advised Kerri that we have no appointments available today or tomorrow in office at all. Advised that given cardiac history and BP would be best for her to present to ED. Kerri adamantly refuses to go to the ED. Advised that she needs to be assessed by a provider, can attempt urgent care for BP checkand treatment for sinus symptoms but they may defer to ED. Also advised could call back to sandwich and drink cart operator and explain that PCP's office is unable to see her today to see what they recommend. Again reiterated to Kerri that for her safety she should present for urgent evaluation and she verbalizes understanding. Total time of call: 11 minutes Nurse Triage Encounter Note Reason for Triage Kerri Winters contacted office for Other Call Disposition Go To Urgent Care Disposition Comments: Patient/caregiver understands and will follow disposition: Yes Initial Symptom Screening and Assessment IA Symptom Onset Less than 24 hours Breathing or Chest Symptoms (Resp/Cardiac) Respiratory symptoms Dry cough Cardiac symptoms Fatigue HEENT Symptoms (Ear, Eye Nose and Throat/teeth) HEENT symptoms Nasal congestion Care Advice Patient/Caregiver understands and will follow care advice?: Yes, plans to follow advice Blood Pressure - [id number] Tanya Conley LPN Wed Sep 30, 2024 01:33 PM Disposition and First Aid SEE IN OFFICE TODAY: * You need to be examined today. Let me give you an appointment. * IF NO AVAILABLE APPOINTMENTS: You need to be seen in the Urgent Care Center. Go to the one at [facility]. Go there today. A nearby Urgent Care Center is often a good source of care. Another choice is to go to the Emergency Department. Patient will call back with additional questions or if symptoms change or worsen Tanya Conley LPN Reason for Disposition and Assessment Reason for Disposition Systolic BP >= 180 OR Diastolic >= 110 Protocols used: Blood Pressure - Lexm-HBEUI-RS * Sita Juarez - 09/30/2024 12:58 PM EST PT lvm on the triage line. Reports her BP today is 195/94. Please advise. Central Support Protection Engineer (Please do not reply to this user; this inbox is not monitored.) Thank you. documented in this encounter Plan of Treatment Upcoming Encounters Date Type Department Care Team (Late st Contact Info) Description 10/21/2025 2:00 PM EST Office Visit [facility] Primary [facility] [address] [place] [address] [address] [place] [address] Binta Rodriguez MD [address] [place] [address] [email or web address] documented as of this encounter Visit Diagnoses Not on filedocumented in this encounter Additional Health Concerns Assessment Noted Time PHQ-2 Depression Total Score: 2 12/16/19 24 9:45 AM EDT documented as of this encounter Care Teams Training Development Manager Relationship Specialty Start Date End Date Thais Mcdaniel MD, MPH [address] [place] [phone] [email or web address] PCP - General Family Medicine 02/15/21 Sangeeta Jarrett MD [address] [place] [phone] Gastroenterology 06/22/19 Arnaldo Epps MD [address] [place] [phone] [email or web address] Psychiatry 02/15/21 Thais Hylton MD [address], [place] [address] Dermatology 02/15/21 Roni Puente MD [address], [place] [address] [email or web address] Cardiology 07/24/21 Thais Mcdaniel MD, MPH [address] [place] [phone] [email or web address] Insurance Assigned Provider 12/21/23 documented as of this encounter Additional Source Comments The information contained in this document represents components of the legal health record. It is not the complete legal health record.[facility]
--- OUTSIDE RECORDS SUMMARY | 2025-05-13 22:48 | XMS_ITS | Clinical Summary ---
Author Organization [facility] [address] [facility] Address [address] [place] [address] Phone Care Team Providers Care Acid Pumper Name Role Phone Thais Mcdaniel MD Primary Care Provider Social History Tobacco Use Types Packs/Day Years Used Date Smoking Tobacco: Never Assessed Comments Unknown Sex and Gender Information Value Date Recorded Sex Assigned at Not on file Legal Sex Female 4:29 PM EST Gender Identity Not on file Sexual Orientation Not on file Plan of Treatment Health Maintenance Due Date Last Done Comments Breast Cancer Screening 1950 RSV Immunization Adult Patients (1 - Risk 60-74 years 1-dose series) 2011 COVID-19 Vaccine (2 - Torres risk series) 01/18/2021 12/21/2020 Zoster Vaccines (2 of 2) 12/13/2021 10/18/2021, 07/17 Cholesterol Screening (Lipid Panel) 07/10/2024 Falls Risk Assessment 07/10/2024 Hepatitis C Screening 07/10/2024 Medicare Annual Wellness Visit 07/10/2024 Osteoporosis Screening (Bone Density Screening) 07/10/2024 Social Influencers of Health Screening 07/10/2024 Depression Screening 09/16/2024 Hypertension/CHF/CAD Annual BMP Blood Test 11/05/2024 06/16/2021 Influenza Vaccine (#1) 2025 , 08/17/2020, 07/03/2019, Additional history exists Colorectal Cancer Screening: Colonoscopy 08/14/2028 08/14/2018 DTaP,Tdap,and Td Vaccines (2 - Td or Tdap) 01/08/2029 01/08/2019 Pneumococcal Vaccine: 50+ Years Completed 07/21/2019, 07/23/2017, 04/25/2017 HIB Vaccines Aged Out No longer eligi ble based on patient's age to complete this topic HPV Vaccines Aged Out No longer eligi ble based on patient's age to complete this topic Hepatitis A Vaccines Aged Out No long er eligible based on patient's age to complete this topic Hepatitis B Vaccines Aged Out No long er eligible based on patient's age to complete this topic IPV Vaccines Aged Out No longer eligi ble based on patient's age to complete this topic MMR Vaccines Aged Out No longer eligi ble based on patient's age to complete this topic Meningococcal ACWY Vaccine Aged Out N o longer eligible based on patient's age to complete this topic Meningococcal B Vaccine Aged Out No l onger eligible based on patient's age to complete this topic RSV Immunization Patients Under 20 months Aged Out No longer eligible based on patient's age to complete this topic Varicella Vaccines Aged Out No longer eligible based on patient's age to complete this topic Procedures Procedure Name Priority Date/Time Associated Diagnosis Comments EXTERNAL COLONOSCOPY REPORT Routine 08/14/2018 1:05 PM EST from Last 3 Months or Most Recently Relevant to Health Maintenance Results * External Colonoscopy Report (08/14/2018 1:05 PM EST) Anatomical Region Laterality Modality Endoscopy us Historical Provider GI~PROCEDURE ORDERABLES F inal Result from Last 3 Months or Most Recently Relevant to Health Maintenance Insurance MEDICARE [facility] Care Teams Acid Pumper Relationship Specialty Start Date End Date Thais Mcdaniel MD [address] [place] [address] [place] [id number] PCP - General Family Medicine 08/28/24
--- OUTSIDE RECORDS SUMMARY | 2025-05-13 22:48 | XMS_ITS | Encounter Summary ---
Author Organization [facility] Address [address] [place] [address] [place] [address] Phone Care Team Providers Care Supplier Quality Specialist Name Role Phone Janee Abdi MD Primary Care Provider [phone] Sangeeta Jarrett MD Unavailable [phone] Marian Claire DO Primary Care Provider [phone] Ed Trevino MD Primary Care Provider [phone] Arnaldo Epps MD Unavailable Thais Mcdaniel MD, MPH Primary Care Provid er Thais Hylton MD Unavailable Roni Puente MD Unavailable [phone] Thais Mcdaniel MD, MPH Unavailable Deena Fontenot [facility] Unavailable Afshan Rico Unavailable ghazala Afshan Rico Unavailable ghazala Encounter Details Date Type Department Care Team (Late st Contact Info) Description 10/01/2019 Procedure Pass [facility] DEA 4 ENDO DEPT [address] [facility], 4th [place] [address] Social History Tobacco Use Types Packs/Day Years Used Date Smoking Tobacco: Former Cigarettes Q uit: 01/20/1992 Smokeless Tobacco: Never Alcohol Use Standard Drinks/Week Comments Yes 2 (1 standard drink = 0.6 oz pur e alcohol) Comments Unknown Sex and Gender Information Value [...] Description 10/21/2025 2:00 PM EST Office Visit [facility] [address] [facility] [address] [place] [address] Binta Rodrigeuz MD [address] [place] [address] [email or web address] documented as of this encounter Visit Diagnoses Not on filedocumented in this encounter Additional Health Concerns Infection Onset Date Last Indicated Resolved Time CoV-Risk 08/31/2020 08/31/2020 09/14/2020 1:25 AM EST CoV-Risk 12/02/2020 12/02/2020 12/12/2020 1:23 AM EDT CoV-Risk 06/16/2021 06/16/2021 06/26/2021 1:25 AM EDT documented as of this encounter Care Teams Supplier Quality Specialist Relationship Specialty Start Date End Date Jin, Janee Sanderson MD [address] [place] [id number] PCP - General Internal Medicine 04/02/19 10/21/19 Marian Claire DO [address] [place] [address] [email or web address] PCP - General Family Medicine 10/22/19 01/19/21 Ed Trevino MD [address] [place] [address] PCP - General Internal Medicine 01/20/21 02/14/21 Thais Mcdaniel MD, MPH [address] [place] [address] PCP - General Family Medicine 02/15/21 Sangeeta Jarrett MD [address] [place] [address] Gastroenterology 06/22/19 Arnaldo Epps MD [address] [place] [address] Psychiatry 02/15/21 Thais Hylton MD [address] [place] [address] Dermatology 02/15/21 Roni Puente MD [address] [place] [address] [email or web address] Cardiology 07/24/21 Thais Mcdaniel MD, MPH [address] [place] [address] Insurance Assigned Provider 12/21/23 Deena Fontenot LICSW [address] [place] [address] [employer] Social Work 12/11/23 04/01/24 Afshan Rico [address] [place] [address] [email or web address] Community Shear Operator Helper 12/13/23 12/13/23 Afshan Rico [address] [place] [address] [email or web address] [facility] Community Shear Operator Helper 12/16/23 12/16/23 documented as of this encounter Additional Source Comments The information contained in this document represents components of the legal health record. It is not the complete legal health record.[facility]
--- OUTSIDE RECORDS SUMMARY | 2025-05-13 22:48 | XMS_ITS | Patient Health Record ---
Author Organization [facility] Address [address] [place] [phone] Care Team Providers Care Side Boss Name Role Phone Bev Nas Unavailable [phone] Reason For Referral No Information Plan Of Treatment No Information
--- OUTSIDE RECORDS SUMMARY | 2025-05-13 22:49 | XMS_ITS | Encounter Summary ---
Author Organization [facility] Address [address] [place] [address] Phone Care Team Providers Care Manager Assembly Name Role Phone Sangeeta Jarrett MD Unavailable [phone] Arnaldo Epps MD Unavailable Thais Mcdaniel MD, MPH Primary Care Provid er Thais Hylton MD Unavailable [phone] Roni Puente MD Unavailable Thais Mcdaniel MD, MPH Unavailable [phone] Reason for Visit * Reason Onset Date Comments Yellow Call Nausea 05/04/2025 Encounter Details Date Type Department Care Team (Late st Contact Info) Description 05/04/2025 Telephone [facility] Primary Care [address] [facility] [address] [place], [place] [id number] Thais Mcdaniel MD, MPH [address] [place] [address] [email or web address] Yellow Call Nausea Social History Tobacco Use Types Packs/Day Years [...] as of this encounter Progress Notes * Sita Juarez - 05/06/2025 11:06 AM EDT PT lvm on the triage line reports she is still experiencing nausea and states that she is taking heart medication and being seen in [place] for a special program, and believes that the bactrim and heart meds may be making her nauseas. Requesting advice. Central Support Heddle Machine Operator (Please do not reply to this user; this inbox is not monitored.) Thank you. * Sita Juarez - 05/04/2025 9:35 AM EDT PT lvm on the triage line reporting that she is experiencing nausea, as well as a cough. Requesting advice. Central Support Heddle Machine Operator (Please do not reply to this user; this inbox is not monitored.) Thank you. documented in this encounter Plan of Treatment Upcoming Encounters Date Type Department Care Team (Late st Contact Info) Description 10/21/2025 2:00 PM EST Office Visit [facility] [address] [place] [address] [address] [place] [address] Binta Rodriguez MD [address] [place] [address] documented as of this encounter Visit Diagnoses Not on filedocumented in this encounter Additional Health Concerns Assessment Noted Time PHQ-2 Depression Total Score: 2 12/16/19 24 9:45 AM EDT documented as of this encounter Care Teams Manager Assembly Relationship Specialty Start Date End Date Thais Mcdaniel MD, MPH [address] [place] [address] [email or web address] PCP - General Family Medicine 02/15/21 Sangeeta Jarrett MD [address] [place] [address] Gastroenterology 06/22/19 Arnaldo Epps MD [address] [place] [address] [email or web address] Psychiatry 02/15/21 Thais Hylton MD [address] [place] [address] Dermatology 02/15/21 Roni Puente MD [address] [place] [address] [email or web address] Cardiology 07/24/21 Thais Mcdaniel MD, MPH [address] [place] [address] [email or web address] Insurance Assigned Provider 12/21/23 documented as of this encounter Additional Source Comments The information contained in this document represents components of the legal health record. It is not the complete legal health record.[facility]
--- OUTSIDE RECORDS SUMMARY | 2025-05-13 22:49 | XMS_ITS | Encounter Summary ---
Author Organization [facility] Address [address] [place] [address] Phone Care Team Providers Care Chief Informatics Officer Name Role Phone Sangeeta Jarrett MD Unavailable [phone] Arnaldo Epps MD Unavailable [phone] Thais Mcdaniel MD, MPH Primary Care Provid er Thais Hylton MD Unavailable [phone] Roni Puente MD Unavailable Thais Mcdaniel MD, MPH Unavailable [phone]- [phone] Reason for Visit * Reason Onset Date Comments Sinusitis 02/09/2025 Encounter Details Date Type Department Care Team (Late st Contact Info) Description 02/09/2025 Telephone [facility] Primary Care [address] [facility] [address] [place], [place] [phone] Thais Mcdaniel MD, MPH [address] [place] [address] [email or web address] Sinusitis Social History Tobacco Use Types Packs/Day Years [...] as of this encounter Progress Notes * Syl Zarco, RN - 02/11/2025 2:20 PM EDT S/w Kerri. She advised she continues to have sinus issues. Even after completed course of bactrim Rx'd by Dr. Mcdaniel in November, sx continue. Cannot breathe through nose, sinus pressure, etc. She againbrings up 30 course of bactrim and historical providers who have prescribed this for in the past, doctors she has seen and loved, etc. Provided therapeutic listening for pt as conversation transitioned to ongoing divorce and problems around that. She does endorse she has fallen multiple times, most recently fell while walking up the stairs, I broke a few of my toes . Pt did call office regarding this but staff was unable to reach her at thattime. Pt advised nausea is ongoing, has been taking daily omeprazole but has not started metoclopramide. Educated pt on how Dr. Mcdaniel wanted her to start it, and that they were going to originally f/u atmissed appointment. Pt apologized for missing appt and would like to re-schedule. F/u sched for 02/26 with PCP. In the meantime, pt states she can only eat about half a piece of toast a day, and is supplementingwith pedialytye, pushing fluids. Advised she she continue with this to help maintain nutrients and electrolytes. Advised hopefully the new medication would help with nausea so she can take more po. Pt appreciates the call, no further questions at this time. Total time of call: 21 minutes. * Sita Juarez - 02/09/2025 11:29 AM EDT PT lm on the triage line reporting that her sinuses are bad and has a headache, and she is also having trouble keeping food down, states that she has loss interest in eating. Requesting call back. Central Support Railroad Passenger Agent (Please do not reply to this user; this inbox is not monitored.) Thank you. documented in this encounter Plan of Treatment Upcoming Encounters Date Type Department Care Team (Late st Contact Info) Description 10/21/2025 2:00 PM EST Office Visit [facility] Primary Care [address] [place] [address] Binta Rodriguez MD [address] [place] [address] [email or web address] documented as of this encounter Visit Diagnoses Not on filedocumented in this encounter Additional Health Concerns Assessment Noted Time PHQ-2 Depression Total Score: 2 12/16/19 24 9:45 AM EDT documented as of this encounter Care Teams Chief Informatics Officer Relationship Specialty Start Date End Date Thais Mcdaniel MD, MPH [address] [place] [address] [email or web address] PCP - General Family Medicine 02/15/21 Sangeeta Jarrett MD [address] [place] [address] Gastroenterology 06/22/19 Arnaldo Epps MD [address] [place] [address] Psychiatry 02/15/21 Thais Hylton MD [address] [place] [address] Dermatology 02/15/21 Roni Puente MD [address], [place] [address] [email or web address] Cardiology 07/24/21 Thais Mcdaniel MD, MPH [address] [place] [address] [email or web address] Insurance Assigned Provider 12/21/23 documented as of this encounter Additional Source Comments The information contained in this document represents components of the legal health record. It is not the complete legal health record.[facility]
--- OUTSIDE RECORDS SUMMARY | 2025-05-13 22:49 | XMS_ITS | Encounter Summary ---
Author Organization [facility] Address [address] [place] [address] Phone Care Team Providers Care Dimension Stone Quarry Supervisor Name Role Phone Sangeeta Jarrett MD Unavailable [phone] Arnaldo Epps MD Unavailable Thais Mcdaniel MD, MPH Primary Care Provid er Thais Hylton MD Unavailable [phone] Roni Puente MD Unavailable Thais Mcdaniel MD, MPH Unavailable [phone]- [phone] Reason for Visit * Reason Onset Date Comments Sinus Infection 05/11/2025 Fall 05/11/2025 Multiple concerns 05/11/2025 CT scan, verti go, med changes Encounter Details Date Type Department Care Team (Late st Contact Info) Description 05/11/2025 Telephone [facility] Primary Care [address] [facility] [address] [place], [place] [phone] Thais Mcdaniel MD, MPH [address] [facility] [address] [place] [address] [email or web address] Sinus Infection; Fall; Multiple concerns (CT scan, vertigo, med changes) Social History Tobacco Use Types Packs/Day Years [...] as of this encounter Progress Notes * Mattie Torre RN - 05/12/2025 12:29 PM EDT SPoke to pt on the phone and advised of below. She understood and agreed with plan. Stated she willstart Abx today. HAs appt for CT scan next week. FYI To Dr. Rodriguez. * Binta Rodriguez MD - 05/12/2025 11:38 AM EDT Yep, this is fine. Dr Rodriguez * Syl Zarco RN - 05/12/2025 9:07 AM EDT S/W Kerri. She advised that in general is not doing well. Still struggling with eating, needs cane to ambulate, still with vertigo but notes it's being taken care of. Looking for advice after most recent cardiology visit with Dr. Puente on 04/26. OV note in media. She notes that she is to start a new medication, spironolactone, but was advised she cannot take this with the Bactrim. She advised she tried taking them together x2, the second time she had incredible abdominal pain that left her in a position on the floor. She discontinues use at that time. She advised that cardiology wants her to get the sinus CT, and a plan for the bactrim vs bahman. Advised the CT sinus was in, and had been faxed over to [facility] for her. Advised to let us know if she runsinto any issues scheduling this. Kerri advised her thought was to finish current course of bactrim, as she notes significant improvement when she was taking the course. Once complete,. She would then start the bahman, to mitigate any further side effects taking them together may cause. Dr. Rodriguez, OK for this? * Binta Rodriguez MD - 05/12/2025 9:04 AM EDT Yes, please stop the bactrim due to side effects. Dr Guerrero * Syl Zarco RN - 05/11/2025 3:01 PM EDT Rec'd order clarification for pt's ordered CT face. Call to [facility] central scheduling. They advised they will need a new order faxed to them specifying CTsinus w/o contrast. [facility] to [facility] Central sched advised they will take hand- written order from Dr. Rodriguez. Re-printed order, note added from Dr. Guerrero, refaxed to [facility] central sched. * Syl Zarco RN - 05/11/2025 1:57 PM EDT Unclear what medication changes she is referring to. Per chart, pt seen by [facility] cardiology recently on 04/26/25 at their [place] [facility]. Records request sent to clarify. Awaiting records, then will forward to PCP for next steps. * Thais Olivia - 05/11/2025 1:38 PM EDT Pt LVM on triage line stating [facility] wants us to order a CT scan of her sinuses. Pt stated that thenew medication they put her on is interfering with Bactrim and they want us to see if lowering the dose will help. Pt stated that she stopped bactrim and the sinus infection has worsened. Pt is requesting the CT scan be sent to [facility]. Pt stated that she is dizzy and has vertigo. Pt stated that she is covered in bruises and falling down. Pt stated that she has called 3x everyday and hasnot received a response. Pt stated that this is poor medicine. Pt stated that we may be hearing from [facility] as well. Please contact and advise. Central Support Scouring Train Operator (Please do not reply to this user; this inbox is not monitored.) Thank you. documented in this encounter Plan of Treatment Upcoming Encounters Date Type Department Care Team (Late st Contact Info) Description 10/21/2025 2:00 PM EST Office Visit [facility] [address] [place] [address] [address] [place] [address] Binta Rodriguez MD [address] [place] [address] [email or web address] documented as of this encounter Visit Diagnoses Not on filedocumented in this encounter Additional Health Concerns Assessment Noted Time PHQ-2 Depression Total Score: 2 12/16/19 24 9:45 AM EDT documented as of this encounter Care Teams Dimension Stone Quarry Supervisor Relationship Specialty Start Date End Date Thais Mcdaniel MD, MPH [address] [place] [address] PCP - General Family Medicine 02/15/21 Sangeeta Jarrett MD [address] [place] [address] Gastroenterology 06/22/19 Arnaldo Epps MD [address] [place] [address] Psychiatry 02/15/21 Thais Hylton MD [address] [place] [address] Dermatology 02/15/21 Roni Puente MD [address] [place] [address] [email or web address] Cardiology 07/24/21 Thais Mcdaniel MD, MPH [address] [place] [address] Insurance Assigned Provider 12/21/23 documented as of this encounter Additional Source Comments The information contained in this document represents components of the legal health record. It is not the complete legal health record.[facility]
--- OUTSIDE RECORDS SUMMARY | 2025-05-13 22:49 | XMS_ITS | Clinical Summary ---
Author Organization [facility] Address [address] [place] [address] Phone Care Team Providers Care Cooking Show Host Name Role Phone Sangeeta Jarrett MD Unavailable [phone] Arnaldo Epps MD Unavailable Thais Mcdaniel MD, MPH Primary Care Provid er Thais Hylton MD Unavailable Roni Puente MD Unavailable Thais Mcdaniel MD, MPH Unavailable [phone] Allergies Active Allergy Reactions Criticality Noted Date Comments Aripiprazole 06/22/2019 melva Cat Hair Standardized Allergenic Extract 06/22/2019 Chocolate 06/22/2019 Dog Dander 06/22/2019 Fish Containing Products 06/22/2019 Gadolinium-Containing Contrast Media Anaphylaxis High 09/08/1951 Ibuprofen Hives 03/22/2021 Iodinated Contrast Media 06/22/2019 Milk Containing Products (Dairy) 03/2019 Mold Extracts 06/22/2019 Peanut 06/22/2019 Tree Nut 06/22/2019 Prednisone High 06/22/2019 melva Risperidone 06/22/2019 Quetiapine 06/22/2019 Shellfish Containing Products 2018 [place] 06/22/2019 Medications divalproex (DEPAKOTE) [address] tablet Take 250 mg by mouth daily. Active OXcarbazepine (TRILEPTAL) 150 MG tablet Take 150 mg by mouth 2 (two) times a day. Active multivitamins capsule Take 1 capsule by mouth daily. Active acetaminophen (TYLENOL) 325 mg tablet Take by mouth every 6 (six) hours as needed for mild pain. Active ascorbic acid, vitamin C, (VITAMIN C) 500 MG tablet Take 150 mg by mouth 2 (two) times a day. Active diazePAM (VALIUM) 10 MG tablet Take 10 mg by mouth every 6 (six) hours as needed for anxiety. Taking once a day, at bedtime Active ivermectin (SOOLANTRA) 1 % Apply topically daily. Active atenolol (TENORMIN) 50 mg tablet 3 Active topiramate (TOPAMAX) 100 MG tablet 3 Active zolpidem (AMBIEN) 10 mg tablet TAKE TWO TABLETS BY MOUTH AT BEDTIME DIRECTED 3 Active apixaban (ELIQUIS) 5 mg tablet Take 1 tablet (5 mg total) by mouth 2 (two) times a day. 60 tablet 5 4 Active clindamycin (CLEOCIN T) 1 % lotion Apply topically. 4 Active flecainide (TAMBOCOR) 50 MG tablet TAKE 2 TABLETS 100MG TOTAL) BY MOUTH EVERY MORNING & EVERY EVENING.. Active valsartan (DIOVAN) 320 MG tablet TAKE ONE TABLET BY MOUTH EVERY DAY STOP LOSARTAN, START VALSARTAN Active omeprazole (PRILOSEC) 20 MG capsule Take 1 capsule (20 mg total) by mouth 2 (two) times a day. 60 capsule 11 5 Active sulfamethoxazo le-trimethopri m (BACTRIM,SEPTR A) 400-80 mg per tablet Take 2 tablets (160 mg of trimethoprim total) by mouth 2 (two) times a day. 120 tablet 5 025 Active aspirin 81 mg chewable tablet Take 81 mg by mouth daily. 025 Discontin ued(No longer taking) MAGNESIUM CITRATE ORAL Take 100 mg by mouth 3 (three) times a day. 025 Discontin ued(No longer taking) Saccharomyces boulardii (FLORASTOR) 250 mg capsule Take 250 mg by mouth 2 (two) times a day. 60 capsule 8 025 Discontin ued(No longer taking) cromolyn (NASALCROM) 5.2 mg/spray (4 %) nasal spray 1 spray by Nasal route 4 (four) times a day. 13 mL 2 5 025 Discontin ued(No longer taking) omeprazole (PRILOSEC) 20 mg TbEC Take 1 tablet (20 mg total) by mouth 2 (two) times a day. 60 tablet 11 5 025 Discontin ued(Dupli gasper order) metoclopramide HCl (REGLAN) 5 MG tablet Take 1 tablet (5 mg total) by mouth 4 (four) times a day as needed (nausea). 30 tablet 1 5 025 Discontin ued(No longer taking) amLODIPine (NORVASC) 5 MG tablet Take 1 tablet by mouth every morning. 5 025 Discontin ued(No longer taking) Active Problems Problem Noted Date Diagnosed Date Recurrent sinusitis 03/08/2021 Overview (03/08/2021): Pt reported Assessment & Plan (12/09/2024 6:47 AM EDT): Assessment & Plan (03/26/2021 10:57 AM EDT): Continue with plan of care per ENT. Encouraged to continue following with them and discussing symptoms Assessment & Plan (03/08/2021 12:15 AM EDT): Cont with ENT Bipolar disorder, in full re mission, most recent episode mixed 03/08/2021 Overview (07/13/2022): Dr Arnaldo Epps Never hospitalized [place] [facility] Assessment & Plan (12/09/2024 6:47 AM EDT): Assessment & Plan (07/13/2022 10:20 PM EDT): Cont [place] [facility] [place] Assessment & Plan (03/08/2021 12:11 AM EDT): Cont with psych Chronic bilateral low back pain without sciatica 03/08/2021 Overview (03/08/2021): Pt reported Assessment & Plan (03/08/2021 12:12 AM EDT): Will obtain prior records 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 Overview (03/08/2021): Pt reported, results in recurrent sinus infections Assessment & Plan (12/09/2024 6:47 AM EDT): History of cardiac radiofrequency ablation 03/08 Overview (03/08/2021): For VT age 42 yo, follows with Dr Roni Puente at [facility] Assessment & Plan (03/08/2021 12:13 AM EDT): Cont with caridology Vertigo 06/05/2018 Assessment & Plan (07/13/2022 10:21 PM EDT): Seeing [facility] re this soon Neutropenia 06/05/2018 Anxiety Resolved Problems Problem Noted Date Diagnosed Date Resolved Date Bipolar 1 disorder Overview (06/23/2020): Longstanding bipolar 1 disorder sees a psychiatrist regularly who prescribes all of her psychiatric medications for her. She is currently on Depakote 250 mg once daily, Trileptal 150 mg twice daily, Topamax 200 mg once daily and Valium 50 mg at bedtime. She also sees a therapist for talk therapy. Irritable bowel 12/02/2020 V-tach 12/02/2020 Overview (06/23/2020): Had an episode of ventricular tachycardia when she was 42 she is status post ablation and reports has not had any additional episodes since then. Occasionally she will have some palpitations which were attributed to PVCs and for that she takes atenolol 75 mg daily. She sees a squilgeer in [place] every 6 months. Encounters Date Type Department Care Team Description 05/11/2025 Telephone [facility] [address] [place] [address] Thais Mcdaniel MD, MPH Sinus Infection; Fall; Multiple concerns (CT scan, vertigo, med changes) 05/04/[address] [place] [address] Thais Mcdaniel MD, MPH Yellow Call Nausea 04/20/2025 2:00 PM EDT Office Visit [address] [place] [address] Binta Rodriguez MD Recurrent sinusitis (Primary Dx); Vertigo; Gastroesophageal reflux disease, unspecified whether esophagitis present 04/15/[address] [place] [address] Thais Mcdaniel MD, MPH 04/08/2025 Telephone [facility] [address] [place] [address] Thais Mcdaniel MD, MPH Yellow Call Dizziness 02/26/2025 3:39 PM EDT - 02/26/2025 11:59 PM EDT Hospital Encounter [facility] [address] [place] [address] Thais Mcdaniel MD, MPH Discharge Disposition: Home or Self Care 02/26/2025 2:40 PM EDT Office Visit [facility] [address] [place] [address] Thais Mcdaniel MD, MPH Polydipsia (Primary Dx); Abnormal finding of blood chemistry, unspecified; Recurrent sinusitis; IgA deficiency; Bipolar disorder, in full remission, most recent episode mixed from Last 3 Months Immunizations Immunization Administration Dates Next Due COVID-19 (Pre-07/08) Torres Vaccine, [id number], PF 12/21/2020 INFLUENZA, SPLIT VIRUS, TRIVALENT PF 05/22/2016, 06/21/2015 Influenza High-Dose Quadriva lent Preservative Free IM 09/05/2022,08/23/2020 Influenza High-Dose Trivalen t Preservative Free IM 08/17/2020,07/03/2019 Influenza Quadrivalent Adjuv anted Preservative Free IM 07/30/2023 Influenza Trivalent Adjuvant ed Preservative free IM 06/24/2024,06/09/2019,08/13/2017 Pneumococcal conjugate PCV13 07/23/2017,04/25/20 17 Pneumococcal polysaccharide PPSV23 07/21/2019 Td (adult) 5 Lf Tetanus Toxo id, PF, Adsorbed 01/08/2019 Tdap 08/19/2024 Zoster live 07/31/2016 Zoster recombinant 11/14/2022,10/18/2021 Family History Medical History Relation Comments Asthma Brother 1 Atrial fibrillation Brother 1 Bipolar disorder Brother 1 COPD Brother 1 Diabetes Brother 1 type 1 Sinusitis Brother 1 Bipolar disorder Brother 2 Coronary artery disease Brother 2 Diabetes Brother 2 type 2 Sinusitis Brother 2 Esophageal cancer Brother 3 Sinusitis Brother 3 Aortic aneurysm Father Bipolar disorder Father Colon cancer Father Esophageal cancer Father Lung cancer Father substation mechanic Sinusitis Father Pancreatic cancer Mother Epistaxis Neg Hx Relation Status Comments Brother 1 Alive Brother 2 Brother 3 Alive lives in [place] Father (Age 77) Mother Social History Tobacco Use Types Packs/Day Years Used Date Smoking Tobacco: Former Cigarettes 1 20 0 01/20/1972 - 01/20/1992 Smokeless Tobacco: Never Tobacco Cessation:Counseling Given: Not Answered Comments:Has not smoked in 29 years Alcohol Use Standard Drinks/Week Comments Not [...] Orientation Straight 02/08/2021 1: 50 PM EDT Last Filed Vital Signs Vital Sign Reading Time Taken Comments Blood Pressure 112/70 04/20/2025 1:48 PM EDT Pulse 53 04/20/2025 1:48 PM EDT Temperature 36.6 C (97.9 F) 02/26/2025 2:42 PM EDT Respiratory Rate 18 12/31/2022 3:48 PM EDT Oxygen Saturation 98% 04/20/2025 1:48 PM EDT Inhaled Oxygen Concentration - - Weight 74.8 kg (165 lb) 05/14/2023 3:03 PM EDT Height 172.7 cm (5' 8 ) 12/08/2024 11:50 AM EDT Body Mass Index 25.09 05/14/2023 3:03 PM EDT Plan of Treatment Upcoming Encounters Date Type Department Care Team (Late st Contact Info) Description 10/21/2025 2:00 PM EST Office Visit [facility] [address] [place] [address] Binta Rodriguez MD [address] [facility] [facility] [address] [place] [address] [email or web address] Health Maintenance Due Date Last Done Comments HEPATITIS C SCREENING 12/27/1969 MAMMOGRAM 1991 COLOGUARD 12/27/1996 COLONOSCOPY 12/27/1996 COLORECTAL CANCER SCREENING 12/27/1996 FIT TEST 12/27/1996 FOBT 12/27/1996 SIGMOIDOSCOPY 12/27/1996 VIRTUAL COLONOSCOPY 12/27/1996 RSV VACCINE (1 - Risk 60-74 years 1-dose series) 2011 OSTEOPOROSIS SCREENING INITIAL (ONE-TIME) 12/27/2016 DEPRESSION SCREENING 12/15/2024 12/16/2023 COVID-19 VACCINE ( season) 2024 06/24/2024, 03/13/2023, 12/22/2021, Additional history exists INFLUENZA VACCINE (#1) 2025 , 07/30/2023, 07/30/2023, Additional history exists VALPROIC ACID (DEPAKENE) LEVEL 12/08/2025 12/08/2024, 09/23/2020 CREATININE LEVEL 02/26/2026 02/26/2025, , 12/08/2024, Additional history exists POTASSIUM LEVEL 02/26/2026 02/26/2025, 11/15, 12/08/2024, Additional history exists LIPID PANEL 02/27/2028 02/26/2023, 02/14, 09/23/2020, Additional history exists Adult Td,Tdap Booster 08/19/2034 08/19/2024, 019 PNEUMOCOCCAL VACCINES (50+ years) Completed 07/21/2019, 07/23/2017, 04/25/2017 ZOSTER VACCINES Completed 11/14/2022, 10/2021, 07/31/2016 SMOKING STATUS SCREENING (Once After 26 Yrs) Completed 04/20/2025 HEPATITIS A VACCINES Aged Out No long er eligible based on patient's age to complete this topic HIB VACCINES Aged Out No longer eligi ble based on patient's age to complete this topic MENINGOCOCCAL VACCINES (ACWY) Aged Out No longer eligible based on patient's age to complete this topic MENINGOCOCCAL VACCINES (B) Aged Out N o longer eligible based on patient's age to complete this topic Medical Devices Not on file Procedures Procedure Name Priority Date/Time Associated Diagnosis Comments CT FACE Routine 04/20/2025 2:18 PM EDT Recurrent sinusitis HEMOGLOBIN A1C Routine 02/26/2025 3:45 PM EDT Polydipsia Abnormal finding of blood chemistry, unspecified BASIC METABOLIC PANEL Routine 02/26/2025 3:45 PM EDT Acute kidney injury VALPROIC ACID Routine 12/08/2024 1:23 PM EDT Nausea vomiting and diarrhea from Last 3 Months or Most Recently Relevant to Health Maintenance Results * Hemoglobin A1c (02/26/2025 3:45 PM EDT) HEMOGLOBIN A1C 5.4 4.3 - 5.8 % [facility] Blood 02/26/2025 3:45 PM EDT 02/26/2025 3:54 PM EDT Thais Mcdaniel MD, MPH LAB BLOOD ORDERABLES Final Result [address] [address] * (ABNORMAL) Basic metabolic panel (02/26/2025 3:45 PM EDT) SODIUM 133 133 - 146 mmol/L [facility] CHLORIDE 105 96 - 108 mmol/L [facility] POTASSIUM 4.5 3.3 - 5.1 mmol/L [facility] CO2 20(L) 21 - 35 mmol/L [facility] BUN 20(H) 6 - 19 mg/dL [facility] CREATININE 0.90 0.5 - 1.5 mg/dL [facility] GLUCOSE 106(H) 70 - 99 mg/dL [facility] CALCIUM 9.2 8.4 - 10.3 mg/dL [facility] EGFR 68 >59 mL/min/1.7 3m2 [facility] Comment:Estimated glomerular filtration rate calculated using the CKD-EPI refit equation. ANION GAP 13 10 - 20 mmol/L [facility] Blood 02/26/2025 3:45 PM EDT 02/26/2025 3:54 PM EDT us Thais Mcdaniel MD, MPH LAB BLOOD ORDERABLES Final Result [address] [address] * (ABNORMAL) Valproic acid (12/08/2024 1:23 PM EDT) VALPROIC ACID 8.8(L) 50.0 - 100.0 ug/mL [facility] Blood 12/08/2024 1:23 PM EDT 12/08/2024 1:24 PM EDT us Thais Mcdaniel MD, MPH LAB BLOOD ORDERABLES Final Result [facility] [address] [place] [address] from Last 3 Months or Most Recently Relevant to Health Maintenance Insurance MEDICARE PART A & B [employer] SUPPLEMENT MEDICARE PART A & B [employer] SUPP[employer]MENT MEDICARE PART A & B [employer] SU[employer]MENT MEDICARE PART A & B [employer] SU[employer]MENT MEDICARE PART A & B [employer]PPLEMENT MEDICARE PART A & B [employer]PPLEMENT MEDICARE PART A & B [employer] SUPPLEMENT MEDICARE PART A & B [employer] MEDEX SUPPLEMENT MEDICARE PART A & B [employer] MEDEX SUPPLEMENT Advance Directives For more information, please contact: [phone] (9AM - 5PM [facility], Saturday-Saturday) Healthcare Agents on File Name Relationship Healthcare Agent Josehi jeannine Varela Other (no proxy form on f ile) Care Teams Cooking Show Host Relationship Specialty Start Date End Date Thais Mcdaniel MD, MPH [address] [place] [phone] [email or web address] PCP - General Family Medicine 02/15/21 Sangeeta Jarrett MD [address] [place] [address] Gastroenterology 06/22/19 Arnaldo Epps MD [address] [place] [id number] [email or web address] Psychiatry 02/15/21 Thais Hylton MD [address] [address] Dermatology 02/15/21 Roni Puente MD [address] [place] [phone] [email or web address] 07/24/21 Thais Mcdaniel MD, MPH [address] [place] [address] [email or web address] Insurance Assigned Provider 12/21/23 Additional Source Comments The information contained in this document represents components of the legal health record. It is not the complete legal health record.[facility]
--- NOTE | 2025-05-13 22:55 | ED.NEUROSD ---
HPI - Neuro Symptoms/Deficit General Chief Complaint: Neuro Symptoms/Deficit Stated Complaint: LOSS OF FEELING ON LEGS Time Seen by Provider: 05/13/25 22:54 History of Present Illness ED Provider: Taran PIERCE Narrative: The patient is a 74-year-old female who was on apixaban because of atrial fibrillation. She says that she has chronic problems with vertigo for which she goes to [place] to see a neurologist. She says that she has been having problems with vertigo for 3 years. 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 She says that she had an ablation procedure in her 40s for ventricular tachycardia. She says that she has subsequently been diagnosed with paroxysmal atrial fibrillation and is on apixaban among other medications. She is on atenolol and flecainide. The patient says that she has been under a great deal of stress. She has been undergoing a very stressful divorce for the last 3 years. She says that she has a fairly active day early this morning. This afternoon she cooked herself sufficient then felt very tired and went to sleep. When she woke up she had a sense of numbness and tingling and discomfort in her left arm and left leg. She says it was the sensation like when your leg falls asleep. It was uncomfortable. She contacted a friend and then called an ambulance and was brought to the hospital. Her symptoms have improved since she has gotten here. Her left arm symptoms have resolved. She still has some slight numbness and tingling discomfort in the left leg. The patient has some facial discomfort that she describes as a sinus headache. She has no generalized headache she says. She says she is currently on a course of Bactrim for a sinus infection. The patient says that she has a history of a right bundle branch block. She says she had an EKG a week ago that showed normal sinus rhythm with a right bundle branch block. Related Data Home Medications ?Medication ?Instructions ?Recorded ?Confirmed Trileptal 150 mg PO BID@2000,0000 10/07/22 05/23/23 diazepam 10 mg tablet 30 - 50 mg PO DAILY@0000 PRN 10/07/22 05/23/23 Anxiety divalproex 125 mg tablet,delayed 2 tab PO DAILY 10/07/22 05/23/23 release topiramate 100 mg tablet 2 tab PO BID@2000,0000 10/07/22 05/23/23 aspirin 81 mg tablet,delayed 81 mg PO DAILY 01/28/23 05/23/23 release (Adult Aspirin Regimen) amlodipine 5 mg tablet 5 mg PO DAILY 05/23/23 05/23/23 ascorbic acid (vitamin C) 500 mg 500 mg PO DAILY 05/23/23 05/23/23 tablet atenolol 50 mg tablet 50 mg PO BID 05/23/23 05/23/23 multivitamin 1 tab PO DAILY 05/23/23 05/23/23 zolpidem 10 mg tablet 20 mg PO DAILY@0000 PRN Insomnia 05/23/23 05/23/23 losartan 50 mg tablet 50 mg PO BID 08/16/23 flecainide 50 mg tablet 50 mg PO BID 05/11/24 05/11/24 Previous Rx's ?Medication ?Instructions ?Recorded apixaban 5 mg (74 tabs) tablets in 5 mg PO Q12H #74 ea 11/14/23 a dose pack (eFuneral DVT-PE Treat 30D Start) Allergies Allergy/AdvReac Type Severity Reaction Status Date / Time ciprofloxacin (From Cipro) Allergy Severe Anaphylaxis Verified 05/13/25 22:35 Iodine and Iodide Containing Allergy Severe Anaphylaxis Verified 05/13/25 22:35 Produc (IODINE AND IODIDE CONTAINING PRODUC) morphine Allergy Severe Anaphylaxis Verified 05/13/25 22:35 prednisone Allergy Severe confusion Verified 05/13/25 22:35 shellfish derived (SHELLFISH Allergy Severe Anaphylaxis Verified 05/13/25 22:35 DERIVED) Sulfa (Sulfonamide Allergy Severe UNKNOWN Verified 05/13/25 22:35 Antibiotics) Tetracyclines Allergy Severe Anaphylaxis Verified 05/13/25 22:35 vancomycin Allergy Severe Anaphylaxis Verified 05/13/25 22:35 Antibiotic Allergy Unknown Anaphylaxis Verified 05/13/25 22:35 codeine (Codeine) Allergy Unknown UNKNOWN Verified 05/13/25 22:35 cortisone (Cortisone) Allergy Unknown UNKNOWN Verified 05/13/25 22:35 fexofenadine (Abimbola) Allergy Unknown Unknown Verified 05/13/25 22:35 loratadine (Claritin) Allergy Unknown Unknown Verified 05/13/25 22:35 latex Allergy Rash Verified 05/13/25 22:35 From Cipro Allergy Severe Anaphylaxis Uncoded 05/13/25 22:35 From Keflex Allergy Severe Anaphylaxis Uncoded 05/13/25 22:35 Codeine Sulfate Allergy Unknown Anaphylaxis Uncoded 05/13/25 22:35 DIURETICS Allergy Unknown UNKNOWN Uncoded 05/13/25 22:35 Review of Systems Review of Systems: Yes all other systems are reviewed and are negative FOR[facility]LY [facility] Past Medical History Medical History Right bundle branch block Radiculopathy of leg Bipolar disorder Ventricular tachyarrhythmia HTN (hypertension), benign Surgical History History of cardiac radiofrequency ablation Social History Social History Alcohol intake: current Alcohol intake frequency: does not drink Alcohol type: other Patient Tobacco Use Status: Former Tobacco user Substance Use Type: Marijuana Advance Directives: Yes Advance Directives on File: Yes Advance Directives Date on File: 09/05/22 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 She is pleasant and cooperative. She is well-groomed. She does not appear in any distress. She does not have any. Neurological deficits. She does not appear ill in any way. HEENT: Other: Face is symmetrical, mucous membranes moist, the tongue is midline, posterior pharynx is normal. Eyes: Other: Pupils are round equal, conjunctivae are clear, extraocular movements intact Pupils: Equal, round and reactive pupils present Neck: Neck: Yes full ROM, Yes no lymphadenopathy and Yes no JVD Resp: Effort & Inspection: normal respiratory effort Auscultation: clear to auscultation bilaterally Cardio: Rate: regular rate Rhythm: regular rhythm Heart sounds: S1 normal heart sound present and S2 normal heart sound present GI: Other: The abdomen is soft and nontender Skin: Other: The skin is dry and unremarkable General skin exam: no rashes or lesions noted Neuro: Other: The patient is awake and alert with a normal mental status. Speech is fluent. Cognition is normal. Orientation is normal. Pupils are round equal and reactive to light, extraocular movements are intact, no nystagmus, face is symmetrical, tongue is midline, speech is normal, she has a 5/5 strength in all extremities. She has no pronator drift. She has normal finger-nose and normal heel-vega bilaterally. She reports some sense of numbness and tingling in the left foot but is able to feel me touching her. She has a normal gait. Cranial nerves: Yes Equal, round and reactive pupils present Medical Decision Making Medical Decision Making MDM Narrative: The patient is a 74-year-old female with a history of paroxysmal atrial fibrillation on flecainide and atenolol and apixaban who had discomfort in her left arm and left leg that she describes as a numbness and tingling type of discomfort. Left arm symptoms have resolved. No chest pain. She has a an unremarkable neurological exam. She is on apixaban. I do not find any objective focal neurological deficit. She describes her symptoms as a kind of numbness discomfort. This therefore seems like a positive symptom. Typically a stroke might cause sensory loss but should not cause any positive discomfort in the extremities. My suspicion for stroke in his case is quite low. I explained to the patient that my suspicion for a stroke was very low but that we would still do a CAT scan, EKG, and labs. The patient however at that point indicated that she did not wish to stay for any testing if I did not have any significant suspicion that she was having a stroke. I explained my reasoning for why I thought it was unlikely that she has a stroke. She seemed content with this and did not wish to pursue any testing. I think she may be discharged to follow up with her regular doctors. Discharge Plan Discharge Clinical Impression: Numbness and tingling of left arm and leg Patient Disposition: Home, Self-Care Additional Instructions: I think it is very unlikely that your symptoms today represent a stroke. Please continue your regular medications. Please follow up soon with your regular doctor's office to discuss this episode further. If you feel significantly worse please return to the emergency department. Prescriptions: No Action Trileptal 150 mg 150 mg PO BID@1999, Rx Instructions: brand name topiramate 100 mg tablet 2 tab PO BID@1999, divalproex 125 mg tablet,delayed release (DR/EC) 2 tab PO DAILY diazepam 10 mg tablet 30 - 50 mg PO DAILY@0000 PRN (Reason: Anxiety) Eliquis DVT-PE Treat 30D Start 5 mg (74 tabs) tablets,dose pack 5 mg PO Q12H Qty: 74 0RF amlodipine 5 mg tablet 5 mg PO DAILY zolpidem 10 mg tablet 20 mg PO DAILY@0000 PRN (Reason: Insomnia) atenolol 50 mg tablet 50 mg PO BID multivitamin Tablet 1 tab PO DAILY ascorbic acid (vitamin C) 500 mg Tablet 500 mg PO DAILY flecainide 50 mg tablet 50 mg PO BID aspirin [Adult Aspirin Regimen] 81 mg tablet,delayed release (DR/EC) 81 mg PO DAILY losartan 50 mg tablet 50 mg PO BID Referrals: Thais Mcdaniel MD [Primary Care Provider, Internal Medicine] Interventions: ED Discharge Assessment Last Done: 05/13/25 23:31 Print Language: Cymraes
[2025-05-13 23:31] VITALS: BP 153/65; PULSE 49; RESP 16; TEMP 36.6; O2SAT 96
== END 2025-05-13 23:32 | disposition home or self-care (01) ==
PROVIDERS: Emergency Provider Emergency Medicine; PCP Family Medicine
DX: R20.0 Anesthesia of skin (principal); R42 Dizziness and giddiness; I48.0 Paroxysmal atrial fibrillation; I45.10 Unspecified right bundle-branch block; Z79.01 Long term (current) use of anticoagulants; Z79.899 Other long term (current) drug therapy
CPT/HCPCS: 99282

== ENCOUNTER 2025-05-26 11:23 | Outpatient (REF) | payer MEDICARE, SELFPAY ==
--- OUTSIDE RECORDS SUMMARY | 2022-12-31 16:03 | XMS_ITS | Encounter Summary ---
Author Organization [facility] Address [address] [place] [address] [place] [phone] Phone Care Team Providers Care Brick Wheeler Name Role Phone Sangeeta Jarrett MD Unavailable [phone] Arnaldo Epps MD Unavailable Thais Mcdaniel MD, MPH Primary Care Provid er Thais Hylton MD Unavailable Roni Puente MD Unavailable Encounter Details Date Type Department Care Team (Late st Contact Info) Description 12/31/2022 4:03 PM EDT Hospital Encounter [facility] [address] [place] [phone] Keke Mcmillan CNP [address] [place], [place] [id number] [email or web address] Social History Tobacco Use Types Packs/Day Years Used Date Smoking Tobacco: Former Cigarettes 1 20 0 01/20/1972 - 01/20/1992 Smokeless Tobacco: Never Comments:Has not smoked in 2 9 years Alcohol Use Standard Drinks/Week Comments Not Currently 2 (1 standard drink = 0.6 oz pur e alcohol) Education Answer Date Recorded Are you interested in more education? Not on tayo e 01/11/2023 Are you concerned about learning? Not on file 01/11/2023 No 01/11/2023 No 01/11/2023 Digital Access Answer Date Recorded No 02/11/2023 No 02/11/2023 Reliable internet access at home? Not on file 02/11/2023 Device with a working camera? Not on file Comments Unknown Sex and Gender Information Value Date Recorded Sex Assigned at Female 12/01/2023 2:30 PM EDT Legal Sex Female 10:00 PM EDT Gender Identity Female 12/01/2023 2:30 PM EDT Sexual Orientation Straight 02/08/2021 1: 50 PM EDT documented as of this encounter Plan of Treatment Upcoming Encounters Date Type Department Care Team (Late st Contact Info) Description 10/21/2025 2:00 PM EST Office Visit [facility] [address] [facility] [address] [place], [place] [id number] Binta Rodriguez MD [address] [facility] [address] [place] [address] [email or web address] documented as of this encounter Procedures Procedure Name Priority Date/Time Associated Diagnosis Comments XR FOOT 3 OR MORE VIEWS (LEFT) Urgent/patient waiting 12/31/2022 4:10 PM EDT Left foot pain documented in this encounter Results * XR FOOT 3 OR MORE VIEWS (LEFT) (12/31/2022 4:10 PM EDT) Anatomical Region Laterality Modality Foot Left Computed Radiogr aphy 12/31/2022 4:12 PM EDT Impressions 12/31/2022 4:32 PM EDT 1. Cortical irregularity along the base of the fifth metatarsal may suggest a non-displaced avulsion fracture. Correlation with point tenderness. 2. Cortical irregularity/lucency along the dorsal aspect of the articular surfaces of a metatarsal and proximal phalanx at the MTP interface, seen only on lateral views, may be due to tissue overlay or suggest nondisplaced fracture. Correlation with point tenderness. If there is clinical concern, CT may better help assess. 3. Soft tissues lying about the dorsum of the distal foot. ATTESTATION: Jennifer, Mary Lou Ruiz as teaching physician, have reviewed the images for this case and if necessary edited the report originally created by Brunilda Strickland. Narrative 12/31/2022 4:32 PM EDT XR FOOT 3 OR MORE VIEWS (LEFT) COMPARISON: None. FINDINGS: Soft tissue swelling overlying the dorsum of the foot. Cortical irregularity along the lateral base of the fifth metatarsal seen on oblique views may suggest a nondisplaced avulsion. Possible cortical irregularity versus cortical step-off along the dorsal cortex of a distal metatarsal at the MTP intravenous, as well as possible lucency along the adjacent proximal phalanx, seen only on lateral views. Osteopenia with scattered degenerative changes about the forefoot and interphalangeal joints. Procedure Note Mary Lou Ruiz MD - 12/31/2022 XR FOOT 3 OR MORE VIEWS (LEFT) COMPARISON: None. FINDINGS: Soft tissue swelling overlying the dorsum of the foot. Cortical irregularity along the lateral base of the fifth metatarsal seenon oblique views may suggest a nondisplaced avulsion. Possible corticalirregularity versus cortical step-off along the dorsal cortex of a distalmetatarsal at the MTP intravenous, as well as possible lucency along theadjacent proximal phalanx, seen only on lateral views. Osteopenia with scattered degenerative changes about the forefoot andinterphalangeal joints. IMPRESSION: 1. Cortical irregularity along the base of the fifth metatarsal maysuggest a non-displaced avulsion fracture. Correlation with pointtenderness. 2. Cortical irregularity/lucency along the dorsal aspect of the articularsurfaces of a metatarsal and proximal phalanx at the MTP interface, seenonly on lateral views, may be due to tissue overlay or suggestnondisplaced fracture. Correlation with point tenderness. If there isclinical concern, CT may better help assess. 3. Soft tissues lying about the dorsum of the distal foot. ATTESTATION: I, Mary Lou Ruiz as teaching physician, have reviewed theimages for this case and if necessary edited the report originally createdby Brunilda Strickland. Keke Mcmillan ELEMENTARY SUPERVISOR IMG XR LOWER EXTREMITY Adriana l Result documented in this encounter Visit Diagnoses Not on filedocumented in this encounter Additional Health Concerns Assessment Noted Time PHQ-2 Depression Total Score: 0 09/27/19 21 4:31 PM EST documented as of this encounter Care Teams Brick Wheeler Relationship Specialty Start Date End Date Thais Mcdaniel MD, MPH [address] [facility] [address] [place] [address] [email or web address] PCP - General Family Medicine 02/15/21 Sangeeta Jarrett MD [address] [place] [id number] Gastroenterology 06/22/19 Arnaldo Epps MD [address] [place] [phone] [email or web address] Psychiatry 02/15/21 Thais Hylton MD [address] [address] Dermatology 02/15/21 Roni Puente MD [address] [place] [address] [email or web address] Cardiology 07/24/21 documented as of this encounter Additional Source Comments The information contained in this document represents components of the legal health record. It is not the complete legal health record.[facility]
--- OUTSIDE RECORDS SUMMARY | 2023-07-31 01:00 | XMS_ITS | Encounter Summary ---
Author Organization [facility] Address [address] [facility] [address] [place] [address] Phone Care Team Providers Care Environmental Services Supervisor Name Role Phone Sangeeta Jarrett MD Unavailable [phone] Arnaldo Epps MD Unavailable Thais Mcdaniel MD, MPH Primary Care Provid er Thais Hylton MD Unavailable Roni Puente MD Unavailable Encounter Details Date Type Department Care Team (Late st Contact Info) Description 07/31/2023 Hospital Encounter [facility] [address] [place] [phone] Kenneth Donohue MD [address] [place] [address]-[place] [address] [email or web address] Social History Tobacco Use Types Packs/Day [...] Description 10/21/2025 2:00 PM EST Office Visit [facility] [place] [facility] [address] [facility] [address] [place] [address] Binta Rodriguez MD [address] [facility]. [address] [place] [address] [email or web address] documented as of this encounter Procedures Procedure [...] documented as of this encounter Care Teams Environmental Services Supervisor Relationship Specialty Start Date End Date Thais Mcdaniel MD, MPH [address] [facility]. [address] [place] [address] [email or web address] PCP - General Family Medicine 02/15/21 Sangeeta Jarrett MD [address] [place] [address] Gastroenterology 06/22/19 Arnaldo Epps MD [address] [place] [address] [email or web address] Psychiatry 02/15/21 Thais Hylton MD [address], [place] [address] Dermatology 02/15/21 Roni Puente MD [address], [place] [address] [email or web address] Cardiology 07/24/21 documented as of this encounter Additional Source Comments The information contained in this document represents components of the legal health record. It is not the complete legal health record.[facility]
--- NOTE | ~2025-05-26 | CT_ITS ---
CLINICAL HISTORY: RECURRENT SINUSITIS CT sinuses without contrast Comparison: CT/REG/VT/SR - CT SINUS WO IV CON - 07/31/23 16:59 EST Findings: Similar-appearing small mucous retention cysts within the left maxillary sinus. New partial opacification of the right maxillary sinus. The [place] right ostiomeatal unit remains occluded. The left ostiomeatal unit is patent but again narrowed secondary to mucoperiosteal thickening. Accessory ostia are patent bilaterally. There is increased opacification of the ethmoid air cells. The sphenoid and frontal sinuses are clear. Sphenoethmoidal recesses patent. Mastoid air cells are clear. The nasal airways are patent. No nasal polyps or masses. The orbits are normal. No acute fractures. IMPRESSION: Ethmoid and maxillary sinus disease as detailed, slightly increased from prior. This document has been electronically signed by: Aleksandr Harvey MD on 05/27/2025 09:00:03
--- OUTSIDE RECORDS SUMMARY | 2025-05-26 14:30 | XMS_ITS | Clinical Summary ---
Author Organization [facility] [address] Address [address] [place] [address] Phone Care Team Providers Care Shuttle Filler Name Role Phone Thais Mcdaniel MD Primary [...] Recently Relevant to Health Maintenance Insurance MEDICARE [facility] Care Teams Shuttle Filler Relationship Specialty Start Date End Date Thais Mcdaniel MD [address] [place] [address] [place] [address] PCP - General Family Medicine 08/28/24
--- OUTSIDE RECORDS SUMMARY | 2025-05-26 14:30 | XMS_ITS | Patient Health Record ---
Author Organization [facility] Address [address] [place] [id number] Care Team Providers Care Transportation Attendant Name Role Phone Bev Nas Unavailable [phone] Reason For Referral No Information Plan Of Treatment No Information
--- OUTSIDE RECORDS SUMMARY | 2025-05-26 14:30 | XMS_ITS | Encounter Summary ---
Author Organization [facility] Address [address] [place] [address] Phone Care Team Providers Care Aircraft Landing Gear Inspector Name Role Phone Sangeeta Jarrett MD Unavailable [phone] Arnaldo Epps MD Unavailable Thais Mcdaniel MD, MPH Primary Care Provid er Thais Hylton MD Unavailable [phone] Roni Puente MD Unavailable Thais Mcdaniel MD, MPH Unavailable [phone]- [phone] Reason for Visit * Reason Onset Date Comments RED CALL high BP 09/30/2024 Encounter Details Date Type Department Care Team (Late st Contact Info) Description 09/30/2024 Nurse Triage [facility] Primary Care [address] [place] [address] Thais Mcdaniel MD, MPH [address] [facility] [address] [place] [address] [email or web address] RED CALL high BP Social History Tobacco [...] reports that she talked to [place]cardiologist in [place] and they told her to come to [...] ED. Also advised could call back to bdr and explain that PCP's office is unable [...] plans to follow advice Blood Pressure - Akkl-HUEIA-CV Tanya Conley LPN Wed Sep 30, 2024 01:33 PM Disposition and First Aid SEE IN OFFICE TODAY: * You need to be examined today. Let me give you an appointment. * IF NO AVAILABLE APPOINTMENTS: You need to be seen in the Urgent Care Center. Go to the one at [facility]. Go there today. A nearby Urgent Care Center is often a good source of care. Another choice is to go to the Emergency Department. Patient will call back with additional questions or if symptoms change or worsen Tanya Conley LPN Reason for Disposition and Assessment Reason for Disposition Systolic BP >= 180 OR Diastolic >= 110 Protocols used: Blood Pressure - [id number] * Sita Juarez - 09/30/2024 12:58 PM EST PT lvm on the triage line. Reports her BP today is 195/94. Please advise. Central Support Seafood Technology Specialist (Please do not reply to this user; this inbox is not monitored.) Thank you. documented in this encounter Plan of Treatment Upcoming Encounters Date Type Department Care Team (Late st Contact Info) Description 10/21/2025 2:00 PM EST Office Visit [facility] Primary Care [address] [place] [address] [address] [place] [address] Binta Rodriguez MD [address] [facility] [address] [place] [address] [email or web address] documented as of this encounter Visit Diagnoses Not on filedocumented in this encounter Additional Health Concerns Assessment Noted Time PHQ-2 Depression Total Score: 2 12/16/19 24 9:45 AM EDT documented as of this encounter Care Teams Aircraft Landing Gear Inspector Relationship Specialty Start Date End Date Thais Mcdaniel MD, MPH [address] [place] [address] [email or web address] PCP - General Family Medicine 02/15/21 Sangeeta Jarrett MD [address] [place] [address] Gastroenterology 06/22/19 Arnaldo Epsp MD [address] [place] [address] [email or web address] Psychiatry 02/15/21 Thais Hylton MD [address] [address] Dermatology 02/15/21 Roni Puente MD [address] [address] [email or web address] Cardiology 07/24/21 Thais Mcdaniel MD, MPH [address] [place] [address] [email or web address] Insurance Assigned Provider 12/21/23 documented as of this encounter Additional Source Comments The information contained in this document represents components of the legal health record. It is not the complete legal health record.[facility]
--- OUTSIDE RECORDS SUMMARY | 2025-05-26 14:31 | XMS_ITS | Encounter Summary ---
Author Organization [facility] Address [address] [place] [address] Phone Care Team Providers Care College Hire Name Role Phone Sangeeta Jarrett MD Unavailable [phone] Arnaldo Epps MD Unavailable [phone] Thais Mcdaniel MD, MPH Primary Care Provid er Thais Hylton MD Unavailable [phone] Roni Puente MD Unavailable Thais Mcdaniel MD, MPH Unavailable [phone]- [phone] Reason for Visit * Reason Onset Date Comments Sinus Infection 05/11/2025 Fall 05/11/2025 Multiple concerns 05/11/2025 CT scan, verti go, med changes Encounter Details Date Type Department Care Team (Late st Contact Info) Description 05/11/[address] [facility] Primary Care [address] [facility] [address] [place], [place] [id number] Thais Mcdaniel MD, MPH [address] [facility] [address] [place] [address] [email or web address] Sinus Infection; Fall; Multiple concerns (CT scan, [...] after most recent cardiology visit with Dr. Punete on 04/26. OV note in media. She [...] in, and had been [place] [facility] [place]. Advised to let us know [...] for pt's ordered CT face. Call to [facility] central scheduling. They advised they will need a new order faxed to them specifying CTsinus w/o contrast. Unable to order CT sinus in [facility]. [facility] Central sched advised they will take hand- written order from Dr. Rodriguez. Re-printed order, note added from Dr. Guerrero, refaxed to [facility] central sched. * Syl Zarco RN - 05/11/2025 1:57 PM EDT Unclear what medication changes she is referring to. Per chart, pt seen by [facility] cardiology recently on 04/26/25 at their [facility]. Records request sent to clarify. Awaiting records, then will forward to PCP for next steps. * Thais Olivia - 05/11/2025 1:38 PM EDT Pt LVM on triage line stating [facility] wants us to order a CT scan of her sinuses. Pt stated that thenew medication they put her on is interfering with Bactrim and they want us to see if lowering the dose will help. Pt stated that she stopped bactrim and the sinus infection has worsened. Pt is requesting the CT scan be sent to [facility]. Pt stated that she is dizzy and has vertigo. Pt stated that she is covered in bruises and falling down. Pt stated that she has called 3x everyday and hasnot received a response. Pt stated that this is poor medicine. Pt stated that we may be hearing from [facility] as well. Please contact and advise. Central Support Metal Precision Machine Assembler (Please do not reply to this user; this inbox is not monitored.) Thank you. documented in this encounter Plan of Treatment Upcoming Encounters Date Type Department Care Team (Late st Contact Info) Description 10/21/2025 2:00 PM EST Office Visit [facility] [address] [place] [address] [address] [place] [address] Binta Rodriguez MD [address] [place] [address] [email or web address] documented as of this encounter Visit Diagnoses Not on filedocumented in this encounter Additional Health Concerns Assessment Noted Time PHQ-2 Depression Total Score: 2 12/16/19 24 9:45 AM EDT documented as of this encounter Care Teams College Hire Relationship Specialty Start Date End Date Thais Mcdaniel MD, MPH [address] [place] [address] PCP - General Family Medicine 02/15/21 Sangeeta Jarrett MD [address] [place] [address] Gastroenterology 06/22/19 Arnaldo Epps MD [address] [place] [address] Psychiatry 02/15/21 Thais Hylton MD [address] [place] [address] Dermatology 02/15/21 Roni Puente MD [address] [place] [address] [email or web address] Cardiology 07/24/21 Thais Mcdaniel MD, MPH [address] [place] [address] Insurance Assigned Provider 12/21/23 documented as of this encounter Additional Source Comments The information contained in this document represents components of the legal health record. It is not the complete legal health record.[facility]
--- OUTSIDE RECORDS SUMMARY | 2025-05-26 14:31 | XMS_ITS | Encounter Summary ---
Author Organization [facility] Address [address] [place] [address] [place] [address] Phone Care Team Providers Care Lens Cutter Name Role Phone Janee Abdi MD Primary Care Provider Sangeeta Jarrett MD Unavailable [phone] Marian Claire DO Primary Care Provider [phone] Ed Trevino MD Primary Care Provider [phone] Arnaldo Epps MD Unavailable Thais Mcdaniel MD, MPH Primary Care Provid er Thais Hylton MD Unavailable Roni Puente MD Unavailable Thais Mcdaniel MD, MPH Unavailable Deena Fontenot [facility] Unavailable [phone] Afshan Rico Unavailable ghazala Afshan Rico Unavailable ghazala Encounter Details Date Type Department Care Team (Late st Contact Info) Description 10/01/2019 Procedure Pass [facility] 4 ENDO DEPT [address] [facility] [place] [address] Social History Tobacco Use Types Packs/Day Years [...] Description 10/21/2025 2:00 PM EST Office Visit [facility] Primary Care [address] [facility] [address] [facility] [address] [place] [address] Binta Rodriguez MD [address] [facility] [address] [place] [address] [email or web address] documented as of this encounter Visit Diagnoses Not on filedocumented in this encounter Additional Health Concerns Infection Onset Date Last Indicated Resolved Time CoV-Risk 08/31/2020 08/31/2020 09/14/2020 1:25 AM EST CoV-Risk 12/02/2020 12/02/2020 12/12/2020 1:23 AM EDT CoV-Risk 06/16/2021 06/16/2021 06/26/2021 1:25 AM EDT documented as of this encounter Care Teams Lens Cutter Relationship Specialty Start Date End Date Jin, Janee Sanderson MD [address] [place] [address] PCP - General Internal Medicine 04/02/19 10/21/19 Marian Claire DO [address] [place] [address] [email or web address] PCP - General Family Medicine 10/22/19 01/19/21 Ed Trevino MD [address] [place] [address] PCP - General Internal Medicine 01/20/21 02/14/21 Thais Mcdaniel MD, MPH [address] [place] [address] PCP - General Family Medicine 02/15/21 Sangeeta Jarrett MD [address] [place] [address] Gastroenterology 06/22/19 Arnaldo Epps MD [address] [place] [address] Psychiatry 02/15/21 Thais Hylton MD [address] [place] [address] Dermatology 02/15/21 Roni Puente MD [address] [place] [address] [email or web address] Cardiology 07/24/21 Thais Mcdaniel MD, MPH [address] [place] [address] Insurance Assigned Provider 12/21/23 Deena Fontenot LICSW [address] [place] [address] [email or web address] Social Work 12/11/23 04/01/24 Afshan Rico [address] [place] [address] [email or web address] Community Associate Project Manager 12/13/23 12/13/23 Afshan Rico [address] [place] [address] [email or web address] Community Associate Project Manager 12/16/23 12/16/23 documented as of this encounter Additional Source Comments The information contained in this document represents components of the legal health record. It is not the complete legal health record.[facility]
--- OUTSIDE RECORDS SUMMARY | 2025-05-26 14:31 | XMS_ITS | Clinical Summary ---
Author Organization [facility] Address [address] [place] [id number] Phone Care Team Providers Care Demand Generation Manager Name Role Phone Sangeeta Jarrett MD Unavailable [phone] Arnaldo Epps MD Unavailable Thais Mcdaniel MD, MPH Primary Care Provid er Thais Hylton MD Unavailable Roni Puente MD Unavailable Thais Mcdaniel MD, MPH Unavailable [phone]- [phone] Allergies Active Allergy Reactions Criticality Noted Date [...] 06/22/2019 Quetiapine 06/22/2019 Shellfish Containing Products [address] [place] 06/22/2019 Medications divalproex (DEPAKOTE) [address] [...] (two) times a day. 120 tablet 5 05/20/20 25 Active Problems Problem Noted Date Diagnosed Date [...] Never hospitalized Never on lithium 2021 at [facility] ketamine study to good effect Assessment & Plan (12/09/2024 6:47 AM EDT): Assessment & Plan (07/13/2022 10:20 PM EDT): Cont following at [facility] study Assessment & Plan (03/08/2021 12:11 AM [...] yo, follows with Dr Roni Puente at [facility] Assessment & Plan (03/08/2021 12:13 AM EDT): Cont with caridology Vertigo 06/05/2018 Assessment & Plan (07/13/2022 10:21 PM EDT): Seeing [facility] re this soon Neutropenia 06/05/2018 Anxiety [...] atenolol 75 mg daily. She sees a induction coordination engineer in [place] every 6 months. Encounters Date Type Department Care Team Description 05/11/2025 Telephone [facility] [address] [place] [address] Thais Mcdaniel MD, MPH Sinus Infection; Fall; Multiple concerns (CT scan, vertigo, med changes) 05/04/2025 Telephone [facility] [address] [place] [address] Thais Mcdaniel MD, MPH Yellow Call Nausea 04/20/2025 2:00 PM EDT Office Visit [facility] [address] [place] [address] Binta Rodriguez MD Recurrent sinusitis (Primary Dx); Vertigo; Gastroesophageal reflux disease, unspecified whether esophagitis present 04/15/2025 Telephone [facility] [address] [place] [address] Thais Mcdaniel MD, MPH 04/08/2025 Telephone [facility] [address] [place] [address] Thais Mcdaniel MD, MPH Yellow Call Dizziness 02/26/2025 3:39 PM EDT - 02/26/2025 11:59 PM EDT Hospital Encounter [facility] [address] [place] [address] Thais Mcdaniel MD, MPH Discharge Disposition: Home or Self Care 02/26/2025 2:40 PM EDT Office Visit [facility] [address] [place] [address] Thais Mcdaniel MD, MPH Polydipsia (Primary Dx); [...] Father Esophageal cancer Father Lung cancer Father tourist home keeper Sinusitis Father Pancreatic cancer Mother Epistaxis Neg Hx Relation Status Comments Brother 1 Alive Brother 2 Brother 3 Alive lives in [place] Father (Age 77) Mother Social History Tobacco [...] 10/21/2025 2:00 PM EST Office Visit [facility] [address] [place] [address] Binta Rodriguez MD [address] [facility] [address] [place] [address] (work) Health Maintenance Due Date Last Done Comments HEPATITIS C SCREENING 12/27/1969 MAMMOGRAM 1991 COLOGUARD 12/27/1996 COLONOSCOPY 12/27/1996 COLORECTAL CANCER SCREENING 12/27/1996 FIT TEST 12/27/1996 FOBT 12/27/1996 SIGMOIDOSCOPY 12/27/1996 VIRTUAL COLONOSCOPY 12/27/1996 RSV VACCINE (1 - Risk 60-74 years 1-dose series) 2011 OSTEOPOROSIS SCREENING INITIAL (ONE-TIME) 12/27/2016 DEPRESSION SCREENING 12/15/2024 12/16/2023 INFLUENZA VACCINE (#1) 2025 , 07/30/2023, 07/30/2023, Additional history exists COVID-19 VACCINE ( season) 2025 06/24/2024, 03/13/2023, 12/22/2021, Additional history exists VALPROIC ACID (DEPAKENE) LEVEL 12/08/2025 12/08/2024, 09/23/2020 CREATININE LEVEL 02/26/2026 02/26/2025, , 12/08/2024, Additional history exists POTASSIUM LEVEL 02/26/2026 02/26/2025, 11/15, 12/08/2024, Additional history exists LIPID PANEL 02/27/2028 02/26/2023, 02/14, 09/23/2020, Additional history exists Adult Td,Tdap Booster 08/19/2034 08/19/2024, 019 PNEUMOCOCCAL VACCINES (50+ years) Completed 07/21/2019, 07/23/2017, 04/25/2017 ZOSTER VACCINES Completed 11/14/2022, 02/0 10/2021, 07/31/2016 SMOKING STATUS SCREENING (Once After [...] HEMOGLOBIN A1C 5.4 4.3 - 5.8 % [facility] Blood 02/26/2025 3:45 PM EDT 02/26/2025 3:54 PM EDT us Thais Mcdaniel MD, MPH LAB BLOOD ORDERABLES Final Result Performing Organization Address City/State/[place] Co de Phone Number [address] [address] * (ABNORMAL) Basic metabolic panel (02/26/2025 3:45 PM EDT) SODIUM 133 133 - 146 mmol/L [facility] CHLORIDE 105 96 - 108 mmol/L [facility] POTASSIUM 4.5 3.3 - 5.1 mmol/L [facility] CO2 20(L) 21 - 35 mmol/L [facility] BUN 20(H) 6 - 19 mg/dL [facility] CREATININE 0.90 0.5 - 1.5 mg/dL [facility] GLUCOSE 106(H) 70 - 99 mg/dL [facility] CALCIUM 9.2 8.4 - 10.3 mg/dL [facility] EGFR 68 >59 mL/min/1.7 3m2 [facility] Comment:Estimated glomerular filtration rate calculated using the CKD-EPI refit equation. ANION GAP 13 10 - 20 mmol/L [facility] Blood 02/26/2025 3:45 PM EDT 02/26/2025 3:54 PM EDT us Thais Mcdaniel MD, MPH LAB BLOOD ORDERABLES Final Result Performing Organization Address [facility]/[place] Co de Phone Number [address] [address] * (ABNORMAL) Valproic acid (12/08/2024 1:23 PM EDT) VALPROIC ACID 8.8(L) 50.0 - 100.0 ug/mL [facility] Blood 12/08/2024 1:23 PM EDT 12/08/2024 1:24 PM EDT us Thais Mcdaniel MD, MPH LAB BLOOD ORDERABLES Final Result Performing Organization Address [facility] Phone Number [address] [address] from Last 3 Months or Most Recently Relevant to Health Maintenance Insurance [place] PART [place] [id number] [employer] MEDEX SUPPLEMENT MEDICARE PART A & B [employer] SUPPLEMENT MEDICARE PART A & B [employer] MEDEX SUPPLEMENT MEDICARE PART A & B [employer] MEDEX SUPPLEMENT MEDICARE PART A & B [employer] MEDEX SUPPLEMENT MEDICARE PART A & B [employer] MEDEX SUPPLEMENT MEDICARE PART A & B [employer] SUPPLEMENT MEDICARE PART A & B Member Subscriber Plan / Payer ( fective 2016-Present) Name:Kerri Winters Member ID:[id number] Relation to Subscriber:Self Name:Kerri Winters Subscriber ID:[id number] Payer ID:[id number] Group ID:Not on file Type:Medicare Address: [employer] [place] [phone] [employer] MEDEX SUPPLEMENT MEDICARE PART A & B [employer]EX SUPPLEMENT Advance Directives For more information, please contact: [phone] (9AM - 5PM [facility], Saturday-Saturday) Healthcare Agents on File Name Relationship Healthcare Agent Relationshi p Communication Nikhil Varela Other (no proxy form on f ile) Care Teams Demand Generation Manager Relationship Specialty Start Date End Date Thais Mcdaniel MD, MPH [address] [place] [id number] PCP - General Family Medicine 02/15/21 Sangeeta Jarrett MD [address] [place] [address] Gastroenterology 06/22/19 Arnaldo Epps MD [address] [place] [address] Psychiatry 02/15/21 Thais Hylton MD [address] [address] Dermatology 02/15/21 Roni Puente MD [address] [place] [address] [email or web address] Cardiology 07/24/21 Thais Mcdaniel MD, MPH [address] [place], [place] [id number] [email or web address] Insurance Assigned Provider 12/21/23 Additional Source Comments The information contained in this document represents components of the legal health record. It is not the complete legal health record.[facility]
--- OUTSIDE RECORDS SUMMARY | 2025-05-26 14:31 | XMS_ITS | Encounter Summary ---
Author Organization [facility] Address [address] [place] [address] Phone Care Team Providers Care Globe Mounter Name Role Phone Sangeeta Jarrett MD Unavailable [phone] Arnaldo Epps MD Unavailable Thais Mcdaniel MD, MPH Primary Care Provid er Thais Hylton MD Unavailable [phone] Roni Puente MD Unavailable [phone] Thais Mcdaniel MD, MPH Unavailable [phone]- [phone] Reason for Visit * Reason Onset Date Comments Yellow Call Nausea 05/04/2025 Encounter Details Date Type Department Care Team (Late st Contact Info) Description 05/04/2025 Telephone [facility] [address] [place], [place] [id number] Thais Mcdaniel MD, MPH [address] [facility] [address] [place] [address] [email or web address] Yellow Call Nausea Social History Tobacco Use [...] taking heart medication and being seen in [place] for a special program, and believes that the bactrim and heart meds may be making her nauseas. Requesting advice. Central Support Peanut Sorter (Please do not reply to this user; this inbox is not monitored.) Thank you. * Sita Juarez - 05/04/2025 9:35 AM EDT PT lvm on the triage line reporting that she is experiencing nausea, as well as a cough. Requesting advice. Central Support Peanut Sorter (Please do not reply to this user; this inbox is not monitored.) Thank you. documented in this encounter Plan of Treatment Upcoming Encounters Date Type Department Care Team (Late st Contact Info) Description 10/21/2025 2:00 PM EST Office Visit [facility] [address] [place] [address] [address] [place] [address] Binta Rodriguez MD [address] [facility] [address] [place] [address] documented as of this encounter Visit Diagnoses Not on filedocumented in this encounter Additional Health Concerns Assessment Noted Time PHQ-2 Depression Total Score: 2 12/16/19 24 9:45 AM EDT documented as of this encounter Care Teams Globe Mounter Relationship Specialty Start Date End Date Thais Mcdaniel MD, MPH [address] [place] [address] [email or web address] PCP - General Family Medicine 02/15/21 Sangeeta Jarrett MD [address] [place] [address] Gastroenterology 06/22/19 Arnaldo Epps MD [address] [place] [phone] [email or web address] Psychiatry 02/15/21 Thais Hylton MD [address] [place] [address] Dermatology 02/15/21 Roni Puente MD [address] [place] [address] [email or web address] Cardiology 07/24/21 Tahis Mcdaniel MD, MPH [address] [place] [address] [email or web address] Insurance Assigned Provider 12/21/23 documented as of this encounter Additional Source Comments The information contained in this document represents components of the legal health record. It is not the complete legal health record.[facility]
== END 2025-05-26 11:24 | disposition home or self-care (01) ==
LOC: HO.CT 11:23
PROVIDERS: Visit Provider Family Medicine
DX: J32.8 Other chronic sinusitis (principal)
CPT/HCPCS: 70486

== ENCOUNTER → 2025-05-26 11:25 | Outpatient (BNV) | payer MEDICARE, SELFPAY | PROVIDERS: Visit Provider Radiology Vascular & Interventional Radiology | DX: J01.20 Acute ethmoidal sinusitis, unspecified (principal) | CPT/HCPCS: 70486 ==